=== PATIENT | female | born 1970 | race Caucasian/White ===

== ENCOUNTER → 2020-04-06 10:33 | Outpatient (BNVA) | payer OTHER, SELFPAY | PROVIDERS: PCP Nurse Practitioner Family; Visit Provider Surgery | DX: Z43.3 Encounter for attention to colostomy (principal) | CPT/HCPCS: 99212 ==

== ENCOUNTER 2020-04-06 11:54 | Outpatient (REF) | payer OTHER, SELFPAY | END 2020-04-06 11:55 | disposition home or self-care (01) | LOC: HO.LAB 11:54 | PROVIDERS: Visit Provider Internal Medicine | DX: Z20.828 Contact with and (suspected) exposure to other viral communicable diseases (principal) | CPT/HCPCS: C9803; U0003 ==

== ENCOUNTER 2020-05-04 10:36 | Outpatient (REF) | payer OTHER, SELFPAY | END 2020-05-04 10:37 | disposition home or self-care (01) | LOC: HO.LAB 10:36 | PROVIDERS: Visit Provider Internal Medicine | DX: Z20.828 Contact with and (suspected) exposure to other viral communicable diseases (principal) | CPT/HCPCS: C9803; U0003 ==

== ENCOUNTER → 2020-06-01 10:33 | Outpatient (BNVA) | payer OTHER, SELFPAY | PROVIDERS: PCP Nurse Practitioner Family; Referring Provider Nurse Practitioner Family; Visit Provider Surgery | DX: E66.01 Morbid (severe) obesity due to excess calories (principal); Z93.3 Colostomy status | CPT/HCPCS: 99212 ==

== ENCOUNTER 2021-02-16 11:22 | Emergency (ER) | payer OTHER, SELFPAY ==
[2021-02-16 11:40] VITALS: BP 149/78; PULSE 67; RESP 18; TEMP 36.7; O2SAT 100; BMI 38.0
[2021-02-16] MEDS: Lidocaine HCl 2 % MPF 5 ML VIAL SUBCUT (12:45)
--- NOTE | 2021-02-16 13:10 | ED.GENADULT ---
HPI - General Adult General Chief complaint: General Medical Stated complaint: Boil private area Time Seen by Provider: 02/16/21 12:29 Source: patient Mode of arrival: ambulatory Limitations: no limitations History of Present Illness HPI narrative: 50-year-old female here with swollen and red area to the left buttocks for 3 days. Patient tells me at home she was able to drain some of it in the shower no fevers or chills. Blood sugars have been running normal. Related Data Home Medications Medication Instructions Recorded Confirmed atorvastatin 10 mg tablet 10 mg PO DAILY 04/06/20 06/01/20 colostomy bags #5 ea 04/06/20 06/01/20 dulaglutide 0.75 mg/0.5 mL 0.75 mg SUBCUT QWEEK 04/06/20 06/01/20 subcutaneous pen injector (Trulicity) insulin glargine 100 unit/mL (3 10 unit SUBCUT BID 04/06/20 06/01/20 mL) subcutaneous pen (Lantus Solostar U-100 Insulin) insulin lispro 100 unit/mL 10 unit SUBCUT BID ml 04/06/20 06/01/20 subcutaneous half-unit pen (Humalog Davi KwikPen (U-100)) lisinopril 20 mg tablet 20 mg PO DAILY 04/06/20 06/01/20 sertraline 50 mg tablet 50 mg PO DAILY 04/06/20 06/01/20 trazodone 50 mg tablet 50 mg PO BEDTIME PRN 04/06/20 06/01/20 Previous Rx's Medication Instructions Recorded skin protectants, misc. (No Sting See Rx Instructions TOPICAL .with 01/25/21 Barrier Film) ostomy change 30 Days #30 ea doxycycline monohydrate 100 mg 100 mg PO BID #20 tab 02/16/21 tablet Allergies Allergy/AdvReac Type Severity Reaction Status Date / Time stoma pace Allergy Unknown severe Uncoded 12/11/18 00:00 rash/Itch Review of Systems Review of Systems: Yes all other systems are reviewed and are negative Constitutional: Constitutional: Reports no additional constitutional complaints, Denies body ache(s), Denies chills, Denies fever(s), Denies headache(s) and Denies weakness Eyes: Eyes: Reports no additional eye complaints and Denies change in vision ENT: Reports system reviewed and no additional complaints, except as documented, Denies dizziness, Denies headache(s), Denies nasal congestion, Denies nasal discharge and Denies neck pain Cardiovascular: Cardiovascular: Reports no additional cardiovascular complaints, Denies chest pain, Denies leg edema and Denies dyspnea Respiratory: Respiratory: Reports no additional respiratory complaints, Denies cough and Denies dyspnea Gastrointestinal: Gastrointestinal: Reports no additional gastrointestinal complaints, Denies abdominal pain, Denies diarrhea, Denies nausea and Denies vomiting Genitourinary: Genitourinary: Reports no additional female genitourinary complaints and Denies urinary incontinence Musculoskeletal: Musculoskeletal: Reports no additional musculoskeletal complaints, Denies back pain, Denies arthralgias, Denies joint swelling, Denies neck pain, Denies numbness and Denies tingling Integumentary/Breasts: Skin/Breast: Reports system reviewed and no additional complaints, except as docu, Reports furuncle, Reports swelling, Reports erythema and Denies rash Neurologic: Reports system reviewed and no additional complaints, except as documented, Denies Abnormal speech present, Denies dizziness, Denies headache(s), Denies numbness, Denies tingling and Denies weakness [facility] [place] Past Medical History Attestation statement: The following information was validated with the patient. Source: old records reviewed and nursing notes reviewed Medical History Boils of multiple sites Colostomy in place COVID-19 Depression Diabetes mellitus Diverticular disease Morbid obesity Social History Social History Alcohol intake: current Physical Exam Vital Signs: Vital Signs: Last Vital Signs Temp 98.0 F 02/16/21 11:40 Pulse 67 02/16/21 11:40 Resp 18 02/16/21 11:40 BP 149/78 H 02/16/21 11:40 Pulse Ox 100 02/16/21 11:40 Body Mass Index 38.0 Const: General: cooperative, healthy appearing, comfortable and no acute distress Orientation/consciousness: patient oriented x3 Limitations: no limitations HENMT: Head: Yes normal to inspection Ears: hearing grossly normal bilaterally General nose exam: Normal external nose present Face and sinus: Yes normal facial exam Mouth: Normal oral and palatal mucosa present Throat: Yes posterior oropharynx normal Eyes: General: appearance normal, both eyes and all related structures Pupils: Equal, round and reactive pupils present Neck: Neck: Yes normal visual inspection Chest: Chest palpation & inspection: normal inspection of the chest Resp: Effort & Inspection: normal respiratory effort Auscultation: clear to auscultation bilaterally Cardio: Rate: regular rate Rhythm: regular rhythm Peripheral pulses: Peripheral pulses 2+ throughout GI: Inspection: Yes normal to inspection Palpation (GI): Soft to palpation and nontender Auscultation: normal bowel sounds Back/Spine/Pelvis: Thoracic/Lumbar Spine: thoracic and lumbar spine normal to inspection Skin: Other: Medium boil to the left buttocks. There is an area that is open and draining a purulent drainage. Local swelling and redness and tenderness General skin exam: no rashes or lesions noted Neuro: General: patient oriented x3, no focal motor deficits and normal sensation to monofilament Cranial nerves: Yes Equal, round and reactive pupils present Cognition (Neuro): normal cognition Speech: No Abnormal speech present Gait exam (Neuro): Normal gait present Motor exam (neuro): 5/5 motor strength present throughout Extrem: General: Yes normal to inspection Course Course Course Narrative: Abscess to left buttocks. No systemic signs or symptoms concerning for infection. See procedure note. Will discharge home with 10 days of doxycycline. Recommended packing removal and 48 hours Reviewed worrisome signs and symptoms of when to return to the emergency department. Comfortable discharge home. Procedures Abscess I/D Site: other (Left buttocks) Local Anesthetic: lidocaine 2% Amount of anesthesia used (mL): 5 Technique: incised with blade Sent for culture/gram staining?: No Irrigation: No Packing used?: iodoform Medical Decision Making Medical Records Medical records reviewed: Yes I reviewed the patient's medical records. Lab Data Lab results reviewed: Yes I reviewed the patient's lab results. Discharge Plan Discharge Clinical Impression: Abscess Patient Disposition: Home, Self-Care Instructions: Abscess (ED) Additional Instructions: Packing removal in 48 hours Prescriptions: New doxycycline monohydrate 100 mg tablet 100 mg PO BID Qty: 20 RF: 0 No Action No Sting Barrier Film Pads, Medicated See Rx Instructions topical .with ostomy change 30 Days Qty: 30 RF: 12 Lantus Solostar U-100 Insulin 100 unit/mL (3 mL) insulin pen 10 unit subcut BID RF: 0 lisinopril 20 mg tablet 20 mg PO DAILY RF: 0 atorvastatin 10 mg tablet 10 mg PO DAILY RF: 0 insulin lispro [Humalog Davi Joana U-100] 100 unit/mL insulin pen, half-unit 10 unit subcut BID RF: 0 (DME) colostomy bags Misc See Rx Instructions .ROUTE .MEDSUPPLY Qty: 5 RF: 0 trazodone 50 mg tablet 50 mg PO BEDTIME PRNRF: 0 sertraline 50 mg tablet 50 mg PO DAILY RF: 0 Trulicity 0.75 mg/0.5 mL pen injector 0.75 mg subcut QWEEK RF: 0 Referrals: Physician,Unknown [Primary Care Provider] - 2 days Interventions: ED Discharge Assessment Last Done: 02/16/21 13:20 Discharge Date/Time: 02/16/21 13:10
== END 2021-02-16 13:10 | disposition home or self-care (01) ==
PROVIDERS: Emergency Provider Emergency Medicine Emergency Medical Services
DX: L02.31 Cutaneous abscess of buttock (principal); Z79.899 Other long term (current) drug therapy
CPT/HCPCS: 10060; 99283; 99284

== ENCOUNTER 2021-02-18 09:58 | Emergency (ER) | payer OTHER, SELFPAY ==
[2021-02-18 11:03] VITALS: BP 145/91; PULSE 64; RESP 18; TEMP 36.9; O2SAT 99; BMI 38.0
--- NOTE | 2021-02-18 11:11 | ED_ITS ---
HPI - Recheck/Abnormal Lab/Rx General Chief Complaint: Skin/Abscess/Foreign Body Stated Complaint: BOIL CHECK Time Seen by Provider: 02/18/21 11:05 Source: patient Mode of arrival: ambulatory Limitations: no limitations History of Present Illness MD complaint: wound re-check Initial visit (ago): day(s) (02/16 I/D with doxy) Initial visit for: abscess Returns today for: wound recheck Symptoms since prior visit: no new symptoms Context: planned re-check Associated symptoms: none Treatments prior to arrival: given antibiotics on (02/16 doxy) Related Data Home Medications Medication Instructions Recorded Confirmed atorvastatin 10 mg tablet 10 mg PO DAILY 04/06/20 06/01/20 colostomy bags #5 ea 04/06/20 06/01/20 dulaglutide 0.75 mg/0.5 mL 0.75 mg SUBCUT QWEEK 04/06/20 06/01/20 subcutaneous pen injector (Trulicity) insulin glargine 100 unit/mL (3 10 unit SUBCUT BID 04/06/20 06/01/20 mL) subcutaneous pen (Lantus Solostar U-100 Insulin) insulin lispro 100 unit/mL 10 unit SUBCUT BID ml 04/06/20 06/01/20 subcutaneous half-unit pen (Humalog Davi KwikPen (U-100)) lisinopril 20 mg tablet 20 mg PO DAILY 04/06/20 06/01/20 sertraline 50 mg tablet 50 mg PO DAILY 04/06/20 06/01/20 trazodone 50 mg tablet 50 mg PO BEDTIME PRN 04/06/20 06/01/20 Previous Rx's Medication Instructions Recorded skin protectants, misc. (No Sting See Rx Instructions TOPICAL .with 01/25/21 Barrier Film) ostomy change 30 Days #30 ea doxycycline monohydrate 100 mg 100 mg PO BID #20 tab 02/16/21 tablet Allergies Allergy/AdvReac Type Severity Reaction Status Date / Time stoma pace Allergy Unknown severe Uncoded 12/11/18 00:00 rash/Itch Review of Systems Review of Systems: Constitutional : No Fever, No Chills ENT/Mouth : No sore throat, No Rhinorrhea Eyes: No Eye Pain, No Swelling, No Redness Cardiovascular : No Chest Pain, No SOB Respiratory : No Cough, No Sputum Gastrointestinal : No Nausea, No Vomiting, No Diarrhea, No abdominal Pain Genitourinary : No Dysuria, No Hematuria Musculoskeletal : No joint pain, No Myalgias, No Joint Swelling Skin : pos Skin Lesions, no skin rash Neuro : No Weakness, No Numbness, No Headache Psych : No Anxiety, No Depression Heme/Lymph: No Bruising, No Bleeding,No Lymphadenopathy Endocrine : No Polyuria, No Polydipsia All other systems reviewed and are negative PMFSH Past Medical History Attestation statement: The following information was validated with the patient. Medical History Boils of multiple sites Colostomy in place COVID-19 Depression Diabetes mellitus Diverticular disease Morbid obesity Social History Social History Alcohol intake: current Advance Directives: No Advance Directives Information Provided: No Patient : No Physical Exam Vital Signs: Vital Signs: Last Vital Signs Temp 98.5 F 02/18/21 11:03 Pulse 64 02/18/21 11:03 Resp 18 02/18/21 11:03 BP 145/91 H 02/18/21 11:03 Pulse Ox 99 02/18/21 11:03 Body Mass Index 38.0 Appearance: Alert. Oriented X3. No acute distress. Eyes: Pupils equal, round and reactive to light. ENT: Pharynx normal. Neck: Normal inspection. Neck supple. CVS: Normal heart rate and rhythm. Pulses normal. Respiratory: No respiratory distress. Breath sounds normal. Abdomen: Soft and nontender. Back: L buttock healing abscess no drainage, no cellulitis no mass felt Skin: Skin warm and dry. Normal skin color. Normal skin turgor. Extremities: No lower extremity edema. No calf ttp Neuro: Oriented X 3. No motor deficit. No sensory deficit. MDM - Recheck/Abnormal Lab/Rx MDM Narrative Medical decision making narrative: 50 yo female well healing abscess, packing out at home - no systemic signs of infection at this time will complete antibiotics course - stable for DC Discharge Plan Discharge Clinical Impression: Encounter for wound re-check Patient Disposition: Home, Self-Care Instructions: Abscess (ED) Additional Instructions: keep covered clean and dry, showers are okay continue antibiotics Prescriptions: No Action No Sting Barrier Film Pads, Medicated See Rx Instructions topical .with ostomy change 30 Days Qty: 30 RF: 12 doxycycline monohydrate 100 mg tablet 100 mg PO BID Qty: 20 RF: 0 Lantus Solostar U-100 Insulin 100 unit/mL (3 mL) insulin pen 10 unit subcut BID RF: 0 lisinopril 20 mg tablet 20 mg PO DAILY RF: 0 atorvastatin 10 mg tablet 10 mg PO DAILY RF: 0 insulin lispro [Humalog Davi KwikPen U-100] 100 unit/mL insulin pen, half- unit 10 unit subcut BID RF: 0 (DME) colostomy bags Misc See Rx Instructions .ROUTE .MEDSUPPLY Qty: 5 RF: 0 trazodone 50 mg tablet 50 mg PO BEDTIME PRNRF: 0 sertraline 50 mg tablet 50 mg PO DAILY RF: 0 Trulicity 0.75 mg/0.5 mL pen injector 0.75 mg subcut QWEEK RF: 0
== END 2021-02-18 11:23 | disposition home or self-care (01) ==
PROVIDERS: Emergency Provider Emergency Medicine
DX: Z48.00 Encounter for change or removal of nonsurgical wound dressing (principal); Z79.899 Other long term (current) drug therapy
CPT/HCPCS: 99282; 99283

== ENCOUNTER 2021-05-22 12:35 | Emergency (ER) | payer OTHER, SELFPAY ==
[2021-05-22 14:24] VITALS: BP 156/94; PULSE 77; RESP 20; TEMP 36.4; O2SAT 100; BMI 42.7
--- NOTE | 2021-05-22 16:28 | ED.FEMALEGU ---
HPI - Female Genitourinary General Chief complaint: Urogenital-Female Stated complaint: tingling leg,cough,irritated vaginal area Time Seen by Provider: 05/22/21 16:27 Source: patient Mode of arrival: ambulatory Limitations: no limitations History of Present Illness HPI Narrative: 50 y/o female with history of morbid obesity, DM, hx diverticulitis s/p emergent sigmoid resection and end- colostomy in Jun 2016 who presents to the ER with vaginal pain for the last 4 days. She is worried she may have a herpes outbreak, last was several years ago. She reports severe external vaginal tenderness and noticed some white areas on the skin. Pain is worse with urination and sawyer the skin. She has been putting Neosporin on it. She states she lost her job and her insurance and has been unable to fill her prescriptions for her insulin. She does not monitor her sugars at home and does not know what her glucose has been running. In addition to her vaginal pain she reports a painful, irritated and red throat after smoking her son's marijuana and coughing a lot. She denies fever, chills, SOB or cheat pain. MD elicited complaint: dysuria, genital rash, genital swelling and genital itching Pertinent past history: STI/STD (hx HSV) and diabetes Onset (ago): day(s) (3) Location of symptoms: external genitalia Severity: severe Severity scale (1-10): 10 Quality of pain: burning Consistency: constant Vaginal discharge: thick/cheesy and vaginal odor Vaginal bleeding: none Urinary symptoms: Dysuria Exacerbating factors: urination, movement and palpation Relieving factors: other (warm clothes) Associated symptoms: denies other symptoms Treatment prior to arrival: none Sexual activity: No Patient : No Related Data Home Medications Medication Instructions Recorded Confirmed atorvastatin 10 mg tablet 10 mg PO DAILY 04/06/20 06/01/20 colostomy bags #5 ea 04/06/20 06/01/20 dulaglutide 0.75 mg/0.5 mL 0.75 mg SUBCUT QWEEK 04/06/20 06/01/20 subcutaneous pen injector (Trulicity) insulin glargine 100 unit/mL (3 10 unit SUBCUT BID 04/06/20 06/01/20 mL) subcutaneous pen (Lantus Solostar U-100 Insulin) insulin lispro 100 unit/mL 10 unit SUBCUT BID ml 04/06/20 06/01/20 subcutaneous half-unit pen (Humalog Junior Bernard (U-100)) lisinopril 20 mg tablet 20 mg PO DAILY 04/06/20 06/01/20 sertraline 50 mg tablet 50 mg PO DAILY 04/06/20 06/01/20 trazodone 50 mg tablet 50 mg PO BEDTIME PRN 04/06/20 06/01/20 Previous Rx's Medication Instructions Recorded skin protectants, misc. (No Sting See Rx Instructions TOPICAL .with 01/25/21 Barrier Film) ostomy change 30 Days #30 ea doxycycline monohydrate 100 mg 100 mg PO BID #20 tab 02/16/21 tablet fluconazole 150 mg tablet 150 mg PO DAILY #1 tab 05/22/21 (Diflucan) insulin glargine 100 unit/mL 40 unit (0.4 mL) SUBCUT BID #10 ml 05/22/21 subcutaneous solution (Lantus U-100 Insulin) miconazole nitrate 100 mg vaginal 100 mg VAGINAL BEDTIME 7 Days #7 ea 05/22/21 suppository (Miconazole-7) valacyclovir 500 mg tablet 500 mg PO BID 4 Days #8 tab 05/22/21 Allergies Allergy/AdvReac Type Severity Reaction Status Date / Time stoma pace Allergy Unknown severe Uncoded 12/11/18 00:00 rash/Itch Review of Systems Review of Systems: Constitutional: No Fever, No Chills ENT/Mouth: + sore throat, No Rhinorrhea, No Swallowing Difficulty Cardiovascular: No Chest Pain, No SOB Respiratory: No Cough, No Sputum Gastrointestinal: No Nausea, No Vomiting, No Diarrhea, No abdominal Pain, No Hematochezia, No Melena Genitourinary: + Dysuria, No Urinary Frequency, No Hematuria, +vaginal discharge Musculoskeletal: No joint pain, No Myalgias Skin: + Skin Lesions, No rash Psych: + Anxiety/Panic, No Depression Heme/Lymph: No Bruising, No Lymphadenopathy Endocrine: No Polyuria, No Polydipsia PMFSH Past Medical History Medical History Boils of multiple sites Colostomy in place COVID-19 Depression Diabetes mellitus Diverticular disease Morbid obesity Social History Social History Alcohol intake: current Advance Directives: No Advance Directives Information Provided: No Patient : No Physical Exam Vital Signs: Vital Signs: Last Vital Signs Temp 97.5 F 05/22/21 14:24 Pulse 77 05/22/21 14:24 Resp 20 05/22/21 14:24 BP 156/94 H 05/22/21 14:24 Pulse Ox 100 05/22/21 14:24 BMI result Body Mass Index 42.7 Appearance: Alert. Oriented X3. No acute distress. Eyes: Pupils equal, round and reactive to light. ENT: Pharynx with moderate generalized erythema, no tonsillar swelling or exudates, uvula midline, normal voice. Neck: Normal inspection. Neck supple. CVS: Normal heart rate and rhythm. Pulses normal. Respiratory: No respiratory distress. Breath sounds normal. Abdomen: Obese, Soft and nontender. +BS x4 : labia majora and minora with diffuse erythema, raw with white plaques, labia minora with small cluster of vesicles at 11 o clock. tender. perineal skin red and raw as well. oozing clear fluid. Skin: Skin warm and dry. Normal skin color. Normal skin turgor. No rashes. Extremities: No lower extremity edema. Neuro: Oriented X 3. grossly normal, nonfocal Course Course Course Narrative: 50 y/o female with hx DM not on insulin for 2 + months, hx genital herpes who presents to the ER with vaginal pain x4 days. Exam is consistent with severe candidiasis. Also small cluster of lesions c/w HSV. Will treat with oral diflucan now as well as valacyclovir. check POC, UA, Strep and COVID swab. No polyuria or polydipsia. Doubt DKA. Reevaluation(s) Reevaluation #1: Point of care 315. Will order her regimen of Lantus including 40 units as well as 10 units of lispro now. Her urinalysis is negative for acute UTI. Her COVID and strep test were negative. Patient was counseled on the importance of compliance with her insulin regimen to allow her candidiasis to fully resolve. Will send home with a repeat dose of Diflucan in 3 days as well as topical treatment for a week. Will also give course of valacyclovir for her HSV. Will prescribe insulin as well and she is going to call her PCP tomorrow to try to get in as soon as possible. Stable for discharge home. MDM - Female Genitourinary Lab Data Labs: Lab Results 05/22/21 05/22/21 05/22/21 Range/Units 17:08 17:08 17:09 POC Glucose (60-115) mg/dL Urine Color YELLOW Urine Appearance HAZY Urine pH 6.0 (5.0-8.0) Ur Specific [place] 1.025 (1.005-1.025) Urine Protein 1+ H (NEG-TRACE) MG/DL Urine Glucose (UA) >=1000 H (NEG) MG/DL Urine Ketones NEG (NEG) MG/DL Urine Blood 1+ H (NEG) Urine Nitrite NEG (NEG) Ur Leukocyte Esterase 1+ H (NEG) Urine RBC 5-9 H (0) /HPF Urine WBC 15-29 H (0-4) /HPF Ur Squamous Epith Cells 2+ /LPF Urine Bacteria 2+ /LPF COVID-19 (CARRILLO) Negative (Negative) COVID-19 Clin Com See Note S. pyogenes GrpA BERNA Negative (Negative) 05/22/21 Range/Units 17:28 POC Glucose 315 H (60-115) mg/dL Urine Color Urine Appearance Urine pH (5.0-8.0) Ur Specific [place] (1.005-1.025) Urine Protein (NEG-TRACE) MG/DL Urine Glucose (UA) (NEG) MG/DL Urine Ketones (NEG) MG/DL Urine Blood (NEG) Urine Nitrite (NEG) Ur Leukocyte Esterase (NEG) Urine RBC (0) /HPF Urine WBC (0-4) /HPF Ur Squamous Epith Cells /LPF Urine Bacteria /LPF COVID-19 (CARRILLO) (Negative) COVID-19 Clin Com S. pyogenes GrpA BERNA (Negative) Critical Care Time Critical Care Time Critical Care Time: No Discharge Plan Discharge Clinical Impression: Diabetes mellitus Qualifiers: Diabetes mellitus type: type 2 Diabetes mellitus terminal system operator insulin use: with terminal system operator use Diabetes mellitus complication status: with hyperglycemia Qualified Code(s): E11.65 - Type 2 diabetes mellitus with hyperglycemia Patient Disposition: Home, Self-Care Instructions: Genital Herpes Simplex (ED), Yeast Infection (ED), Diabetic Hyperglycemia (ED) Additional Instructions: Your given 1st dose of Diflucan to treat vaginal yeast infection - you will need to repeat this in 3 days. One additional dose was sent to your pharmacy. Given the extent of the infection also recommend 7 days of intravaginal anti fungal. This was also sent to your pharmacy. Use the 1st vaginal suppository tonight. Continue the valacyclovir for the next 4 days to treat your herpes outbreak. It is very important that you start taking her insulin, the infection will not be able to go way if your sugars are out of control. Follow-up with your doctor as soon as possible. You were negative for strep throat and COVID-19 today. Prescriptions: New fluconazole [Diflucan] 150 mg tablet 150 mg PO DAILY Qty: 1 RF: 0 valacyclovir 500 mg tablet 500 mg PO BID 4 Days Qty: 8 RF: 0 miconazole nitrate [Miconazole-7] 100 mg suppository 100 mg vaginal BEDTIME 7 Days Qty: 7 RF: 0 Lantus U-100 Insulin 100 unit/mL solution 40 unit subcut BID Qty: 10 RF: 2 No Action No Sting Barrier Film Pads, Medicated See Rx Instructions topical .with ostomy change 30 Days Qty: 30 RF: 12 doxycycline monohydrate 100 mg tablet 100 mg PO BID Qty: 20 RF: 0 Lantus Solostar U-100 Insulin 100 unit/mL (3 mL) insulin pen 10 unit subcut BID RF: 0 lisinopril 20 mg tablet 20 mg PO DAILY RF: 0 atorvastatin 10 mg tablet 10 mg PO DAILY RF: 0 insulin lispro [Humalog Davi KwikPen U-100] 100 unit/mL insulin pen, half-unit 10 unit subcut BID RF: 0 (DME) colostomy bags Misc See Rx Instructions .ROUTE .MEDSUPPLY Qty: 5 RF: 0 trazodone 50 mg tablet 50 mg PO BEDTIME PRNRF: 0 sertraline 50 mg tablet 50 mg PO DAILY RF: 0 Trulicity 0.75 mg/0.5 mL pen injector 0.75 mg subcut QWEEK RF: 0 Interventions: ED Discharge Assessment Last Done: 05/22/21 18:35 Discharge Date/Time: 05/22/21 18:35
--- NOTE | 2021-05-22 17:31 | PC.NURSE ---
accu check done results 315 provider notified .
[2021-05-22 17:32] LABS: Glucose, Whole Blood 315 mg/dL (60-115)
[2021-05-22 17:33] LABS: Appearance Urine HAZY; Color Urine YELLOW; Glucose Urine UA >=1000 MG/DL (NEG); Leukocyte Esterase Urine 1+ (NEG); Nitrite Urine NEG (NEG); Specific Gravity - Urine 1.025 (1.005-1.025); UACC Culture Trigger YES; Urine Blood 1+ (NEG); Urine Ketones NEG (NEG); Urine Protein 1+ MG/DL (NEG-TRACE)
[2021-05-22 17:41] LABS: IDNOW Serial# 9DD0AD1C; Strep A Nucleic Acid Negative (Negative)
[2021-05-22] MEDS: oxyCODONE HCl Immed Release 5 MG TABLET PO (17:47)
[2021-05-22] MEDS: Nystatin Powder 15 GM BOTTLE 1 APPL TOPICAL (17:48)
[2021-05-22] MEDS: Fluconazole 150 MG TABLET PO (17:48)
[2021-05-22] MEDS: Insulin Lispro 100 UNIT/ML 3 ML VIAL 10 UNIT SUBCUT (17:49)
[2021-05-22] MEDS: Insulin Glargine,Hum.rec.anlog 100 UNIT/ML 10 ML VIAL 40 UNIT SUBCUT (17:50)
[2021-05-22 17:51] LABS: COVID-19 Test Negative (Negative)
[2021-05-22 19:00] LABS: Bacteria Urine 2+ /LPF; Squamous Epithelial Cell Urine 2+ /LPF
== END 2021-05-22 18:35 | disposition home or self-care (01) ==
PROVIDERS: Physician Assistant; Emergency Provider Emergency Medicine
DX: B37.3 Candidiasis of vulva and vagina (principal); E11.65 Type 2 diabetes mellitus with hyperglycemia; R10.2 Pelvic and perineal pain; Z91.14 Patient's other noncompliance with medication regimen; Z20.822 Contact with and (suspected) exposure to COVID-19
CPT/HCPCS: 36415; 81001; 82947; 87086; 87147; 87635; 87651; 99283

== ENCOUNTER 2021-06-02 11:23 | Emergency (ER) | payer OTHER, SELFPAY ==
--- NOTE | 2021-06-02 | ECG_ITS ---
Test Reason : dyspnea Blood Pressure : / mmHG Vent. Rate : 086 BPM Atrial Rate : 086 BPM P-R Int : 142 ms QRS Dur : 074 ms QT Int : 332 ms P-R-T Axes : 025 010 027 degrees QTc Int : 397 ms Normal sinus rhythm Normal ECG When compared with ECG of 30-DEC-2018 13:38, Vent. rate has increased BY 28 BPM Referred By: Generic ED Physician Electronically Signed By:MARY SIERRA
[2021-06-02 11:29] VITALS: BP 151/85; PULSE 120; RESP 24; TEMP 37.7; O2SAT 98; BMI 36.1
--- NOTE | 2021-06-02 12:08 | ED.SKABFB ---
HPI - Skin/Abscess/Foreign Bdy General Chief complaint: Skin/Abscess/Foreign Body Stated complaint: boil r butt cheek Time Seen by Provider: 06/02/21 11:46 Source: patient Mode of arrival: ambulatory History of Present Illness HPI narrative: 50-year-old female with a PMH depression, diabetes, diverticular disease, morbid obesity, colostomy, presenting to the ED complaining of abscess to right buttock x1 week. Reports intermittent fever. Denies drainage from area, chills, rectal bleeding, abdominal pain, nausea/vomiting, pain with BM, vaginal pain/lesions, dysuria/hematuria, flank pain Of note patient was recently seen and treated in our ED on 05/22 for candidiasis, HSV outbreak, and also noted to have UTI which appears untreated growing strep agalactiae MD complaint: abscess/boil Onset (ago): day(s) Related Data Home Medications Medication Instructions Recorded Confirmed atorvastatin 10 mg tablet 10 mg PO DAILY 04/06/20 06/01/20 colostomy bags #5 ea 04/06/20 06/01/20 dulaglutide 0.75 mg/0.5 mL 0.75 mg SUBCUT QWEEK 04/06/20 06/01/20 subcutaneous pen injector (Trulicity) insulin glargine 100 unit/mL (3 10 unit SUBCUT BID 04/06/20 06/01/20 mL) subcutaneous pen (Lantus Solostar U-100 Insulin) insulin lispro 100 unit/mL 10 unit SUBCUT BID ml 04/06/20 06/01/20 subcutaneous half-unit pen (Humalog Davi KwikPen (U-100)) lisinopril 20 mg tablet 20 mg PO DAILY 04/06/20 06/01/20 sertraline 50 mg tablet 50 mg PO DAILY 04/06/20 06/01/20 trazodone 50 mg tablet 50 mg PO BEDTIME PRN 04/06/20 06/01/20 Previous Rx's Medication Instructions Recorded skin protectants, misc. (No Sting See Rx Instructions TOPICAL .with 01/25/21 Barrier Film) ostomy change 30 Days #30 ea doxycycline monohydrate 100 mg 100 mg PO BID #20 tab 02/16/21 tablet fluconazole 150 mg tablet 150 mg PO DAILY #1 tab 05/22/21 (Diflucan) insulin glargine 100 unit/mL 40 unit (0.4 mL) SUBCUT BID #10 ml 05/22/21 subcutaneous solution (Lantus U-100 Insulin) miconazole nitrate 100 mg vaginal 100 mg VAGINAL BEDTIME 7 Days #7 ea 05/22/21 suppository (Miconazole-7) valacyclovir 500 mg tablet 500 mg PO BID 4 Days #8 tab 05/22/21 cephalexin 500 mg capsule 500 mg PO QID 7 Days #28 cap 06/02/21 doxycycline hyclate 100 mg tablet 100 mg PO BID 7 Days #14 tab 06/02/21 Allergies Allergy/AdvReac Type Severity Reaction Status Date / Time stoma pace Allergy Unknown severe Uncoded 12/11/18 00:00 rash/Itch Review of Systems Review of Systems: Constitutional: + Fever, No Chills ENT/Mouth: No Ear Pain, No Nasal Congestion, No sore throat, No Rhinorrhea, No Swallowing Difficulty Cardiovascular: No Chest Pain, No SOB Respiratory: No Cough, No Sputum, No Wheezing Gastrointestinal: No Nausea, No Vomiting, No Diarrhea, No Constipation, No Abdominal pain Genitourinary: No Dysuria, No Urinary Frequency, No Hematuria, No Flank Pain Musculoskeletal: No joint pain, No Myalgias, No Joint Swelling Skin: + Skin Lesions, No rash Neuro: No Weakness, No Numbness, No Paresthesias Yes all other systems are reviewed and are negative [facility] Past Medical History Attestation statement: The following information was validated with the patient. Medical History Boils of multiple sites Colostomy in place COVID-19 Depression Diabetes mellitus Diverticular disease Morbid obesity Social History Social History Alcohol intake: current Advance Directives: Yes Advance Directives Information Provided: Yes Advance Directives on File: No Physical Exam Vital Signs: Vital Signs: Last Vital Signs Temp 98.8 F 06/02/21 13:44 Pulse 86 06/02/21 13:44 Resp 18 06/02/21 13:46 BP 125/70 06/02/21 13:44 Pulse Ox 98 06/02/21 13:44 BMI result Body Mass Index 36.1 Const: General: cooperative, comfortable, no acute distress and anxious Orientation/consciousness: patient oriented x3 Limitations: no limitations HENMT: Head: Yes normal to inspection and Yes atraumatic Ears: hearing grossly normal bilaterally General nose exam: Normal external nose present Face and sinus: Yes normal facial exam Eyes: General: appearance normal, both eyes and all related structures EOM: EOMs intact bilaterally Neck: Neck: Yes normal visual inspection and Yes no meningeal signs Resp: Effort & Inspection: normal respiratory effort and no respiratory distress Auscultation: clear to auscultation bilaterally Cardio: Rate: regular rate and tachycardic Heart sounds: S1 normal heart sound present and S2 normal heart sound present GI: Inspection: Yes normal to inspection Palpation (GI): Soft to palpation, nontender, no guarding and not rigid Skin: Other: + large indurated abscess noted to right buttock with central fluctuance. + surrounding erythema. No streaking. No active drainage. Rashes: no rashes Neuro: General: patient oriented x3 and no meningeal signs Gait exam (Neuro): Normal gait present Extrem: General: Yes normal to inspection Course Course Course Narrative: -1240--leukocytosis of 14.6. Lactic acid negative. Labs otherwise unremarkable. > due to patient's obesity her IBW =45kg > 45kg x 30cc IVF = 1,350cc IVF. Still low concern for severe sepsis, patient is nontoxic, tachycardia and tachypnea resolved after pain control -patient was given dose of IV Rocephin and p.o. doxycycline in the ED Large amount of purulent drainage expressed from abscess. Packing placed. Discussed with patient worrisome signs and symptoms and strict return precautions and need close follow-up/return in 48 hours for packing removal. She verbalized understanding feel safe for discharge home -1439--UA not infected. COVID-19 negative MDM - Skin/Abscess/Foreign Bdy MDM Narrative Medical decision making narrative: 50-year-old female with a H depression, diabetes, diverticular disease, morbid obesity, colostomy, presenting to the ED complaining of abscess to right buttock x1 week. Reports intermittent fever. On exam tachycardic, tachypneic, low-grade fever 99.8, abscess noted to right buttock with large induration and central fluctuance, + overlying cellulitis. Tachycardia/tachypnea from pain and anxiety and not severe sepsis. Plan: Labs, UA, lactic/blood cultures, empiric IV antibiotics, IVF, I&D abscess Medical Records Attestation: I reviewed the patient's medical records. Lab Data Attestation: I reviewed the patient's lab results. Result diagrams: 06/02/21 12:06 06/02/21 12:06 Labs: Lab Results 06/02/21 06/02/21 06/02/21 Range/Units 12:05 12:06 12:06 WBC 14.6 H (4.8-10.8) X10*3/uL RBC 5.06 (4.20-5.50) X10*6/uL Hgb 14.6 (12.0-16.0) g/dl Hct 43.6 (37.0-47.0) % MCV 86.2 (80.0-98.0) fL MCH 28.9 (27.0-33.0) pg MCHC 33.5 (31.0-35.0) g/dl RDW 12.4 (11.0-16.0) % Plt Count 323 (160-400) X10*3/uL MPV 10.5 (9.4-12.3) fL Immature Gran % (Auto) 1.1 H (0.0-0.4) % Neut % (Auto) 81.3 H (45-73) % Lymph % (Auto) 9.8 L (20-40) % [place] % (Auto) 6.6 (2-11) % Eos % (Auto) 0.9 (0-4) % Baso % (Auto) 0.3 (0-2) % Lymph # (Auto) 1.4 (1.2-4.9) X10*3/uL [place] # (Auto) 1.0 (0.1-1.2) X10*3/uL Eos # (Auto) 0.1 (0.0-0.4) X10*3/uL Baso # (Auto) 0.0 (0.0-0.2) X10*3/uL Abs Immat Gran (auto) 0.16 H (0.00-0.03) X10*3/uL Absolute Neuts (auto) 11.8 H (2.0-8.3) x10*3/uL Absolute Nucleated RBC 0.000 (0.0-0.012) X10*3/uL Nucleated RBC % (auto) 0.0 (0.0-0.2) /100WBC Sodium 138 (135-145) mmol/L Potassium 4.6 (3.3-5.1) mmol/L Chloride 101 (96-108) mmol/L Carbon Dioxide 25 (22-29) mmol/L Anion Gap 17 (12-20) BUN 7 L (9-16) mg/dL Creatinine 0.95 (0.5-1.4) mg/dL Estim Creat Clear Calc 68.8 Estimated GFR > 60 POC Glucose (60-115) mg/dL Random Glucose 149 H (60-115) mg/dL Lactic Acid 1.2 (0.5-2.0) mmol/L Calcium 10.3 H (8.4-10.2) mg/dL Magnesium 1.8 (1.6-2.6) mg/dL Total Bilirubin 0.9 (0.0-1.0) mg/dL Direct Bilirubin 0.3 (0.0-0.5) mg/dL AST 15 (5-31) U/L ALT 14 (0-31) U/L Alkaline Phosphatase 99 (39-117) U/L Total Protein 7.3 (6.5-8.0) g/dL Albumin 3.6 (3.5-5.0) g/dL Urine Color Urine Appearance Urine pH (5.0-8.0) Ur Specific [place] (1.005-1.025) Urine Protein (NEG-TRACE) MG/DL Urine Glucose (UA) (NEG) MG/DL Urine Ketones (NEG) MG/DL Urine Blood (NEG) Urine Nitrite (NEG) Ur Leukocyte Esterase (NEG) Urine RBC (0) /HPF Urine WBC (0-4) /HPF Ur Squamous Epith Cells /LPF Urine Bacteria /LPF Urine Mucus /LPF COVID-19 ([facility]) (Negative) COVID-19 Clin Com 06/02/21 06/02/21 06/02/21 Range/Units 12:07 12:39 13:04 WBC (4.8-10.8) X10*3/uL RBC (4.20-5.50) X10*6/uL Hgb (12.0-16.0) g/dl Hct (37.0-47.0) % MCV (80.0-98.0) fL MCH (27.0-33.0) pg MCHC (31.0-35.0) g/dl RDW (11.0-16.0) % Plt Count (160-400) X10*3/uL MPV (9.4-12.3) fL Immature Gran % (Auto) (0.0-0.4) % Neut % (Auto) (45-73) % Lymph % (Auto) (20-40) % [place] % (Auto) (2-11) % Eos % (Auto) (0-4) % Baso % (Auto) (0-2) % Lymph # (Auto) (1.2-4.9) X10*3/uL [place] # (Auto) (0.1-1.2) X10*3/uL Eos # (Auto) (0.0-0.4) X10*3/uL Baso # (Auto) (0.0-0.2) X10*3/uL Abs Immat Gran (auto) (0.00-0.03) X10*3/uL Absolute Neuts (auto) (2.0-8.3) x10*3/uL Absolute Nucleated RBC (0.0-0.012) X10*3/uL Nucleated RBC % (auto) (0.0-0.2) /100WBC Sodium (135-145) mmol/L Potassium (3.3-5.1) mmol/L Chloride (96-108) mmol/L Carbon Dioxide (22-29) mmol/L Anion Gap (12-20) BUN (9-16) mg/dL Creatinine (0.5-1.4) mg/dL Estim Creat Clear Calc Estimated GFR POC Glucose 146 H (60-115) mg/dL Random Glucose (60-115) mg/dL Lactic Acid (0.5-2.0) mmol/L Calcium (8.4-10.2) mg/dL Magnesium (1.6-2.6) mg/dL Total Bilirubin (0.0-1.0) mg/dL Direct Bilirubin (0.0-0.5) mg/dL AST (5-31) U/L ALT (0-31) U/L Alkaline Phosphatase (39-117) U/L Total Protein (6.5-8.0) g/dL Albumin (3.5-5.0) g/dL Urine Color YELLOW Urine Appearance CLOUDY Urine pH 5.5 (5.0-8.0) Ur Specific [place] >= 1.030 H (1.005-1.025) Urine Protein 2+ H (NEG-TRACE) MG/DL Urine Glucose (UA) NEG (NEG) MG/DL Urine Ketones 5 (NEG) MG/DL Urine Blood 1+ H (NEG) Urine Nitrite NEG (NEG) Ur Leukocyte Esterase NEG (NEG) Urine RBC 1-4 (0) /HPF Urine WBC 0-2 (0-4) /HPF Ur Squamous Epith Cells 2+ /LPF Urine Bacteria 2+ /LPF Urine Mucus 1+ /LPF COVID-19 ([facility]) Negative (Negative) COVID-19 Clin Com See Note Procedures Abscess I/D Site: other (Right buttock) Side (if applicable): right Local Anesthetic: lidocaine 1%, lidocaine 2% and with epi Amount of anesthesia used (mL): 10 Technique: incised with blade Amount of fluid expressed (mL): 30 Sent for culture/gram staining?: No Irrigation: No Packing used?: iodoform Discharge Plan Discharge Clinical Impression: Abscess Cellulitis Qualifiers: Site of cellulitis: buttock Qualified Code(s): L03.317 - Cellulitis of buttock Patient Disposition: Home, Self-Care Instructions: Cellulitis (ED), Abscess (ED), Abscess Follow-up (ED) Additional Instructions: You have an abscess that was drained today in the emergency department. Packing was placed. Return to the emergency department in 48 hours for packing removal 2 antibiotics were sent to the pharmacy for you, doxycycline and Keflex please take as prescribed, do not miss any doses, take until completion If abscess is worsening/becomes larger, continues to have drainage, or you develop fevers please return to the emergency department sooner Prescriptions: New cephalexin 500 mg capsule 500 mg PO QID 7 Days Qty: 28 RF: 0 doxycycline hyclate 100 mg tablet 100 mg PO BID 7 Days Qty: 14 RF: 0 No Action No Sting Barrier Film Pads, Medicated See Rx Instructions topical .with ostomy change 30 Days Qty: 30 RF: 12 doxycycline monohydrate 100 mg tablet 100 mg PO BID Qty: 20 RF: 0 fluconazole [Diflucan] 150 mg tablet 150 mg PO DAILY Qty: 1 RF: 0 valacyclovir 500 mg tablet 500 mg PO BID 4 Days Qty: 8 RF: 0 miconazole nitrate [Miconazole-7] 100 mg suppository 100 mg vaginal BEDTIME 7 Days Qty: 7 RF: 0 Lantus U-100 Insulin 100 unit/mL solution 40 unit subcut BID Qty: 10 RF: 2 Lantus Solostar U-100 Insulin 100 unit/mL (3 mL) insulin pen 10 unit subcut BID RF: 0 lisinopril 20 mg tablet 20 mg PO DAILY RF: 0 atorvastatin 10 mg tablet 10 mg PO DAILY RF: 0 insulin lispro [Humalog Davi KwikPen U-100] 100 unit/mL insulin pen, half-unit 10 unit subcut BID RF: 0 (DME) colostomy bags Misc See Rx Instructions .ROUTE .MEDSUPPLY Qty: 5 RF: 0 trazodone 50 mg tablet 50 mg PO BEDTIME PRNRF: 0 sertraline 50 mg tablet 50 mg PO DAILY RF: 0 Trulicity 0.75 mg/0.5 mL pen injector 0.75 mg subcut QWEEK RF: 0 Referrals: Liliana Montiel MD [Emergency Provider] - 2 days (For packing removal)
[2021-06-02 12:12] LABS: MANUAL DIFF FLAG NO
[2021-06-02 12:16] LABS: Basophils Percent Auto 0.3 % (0-2); Eosinophils Absolute Auto 0.1 X10*3/uL (0.0-0.4); Eosinophils Percent Auto 0.9 % (0-4); Hematocrit 43.6 % (37.0-47.0); Hemoglobin 14.6 g/dl (12.0-16.0); Imm Gran Abs Auto 0.16 X10*3/uL (0.00-0.03); Imm Gran Pct Auto 1.1 % (0.0-0.4); Lymphocytes Absolute Auto 1.4 X10*3/uL (1.2-4.9); Lymphocytes Percent Auto 9.8 % (20-40); Mean Corpuscular HGB Conc 33.5 g/dl (31.0-35.0); Mean Corpuscular Hemoglobin 28.9 pg (27.0-33.0); Mean Corpuscular Volume 86.2 fL (80.0-98.0); Mean Platelet Volume 10.5 fL (9.4-12.3); Monocytes Percent Auto 6.6 % (2-11); Neutrophils Absolute Auto 11.8 x10*3/uL (2.0-8.3); Neutrophils Percent Auto 81.3 % (45-73); Platelet Count 323 X10*3/uL (160-400); Red Blood Count 5.06 X10*6/uL (4.20-5.50); Red Cell Distribution Width 12.4 % (11.0-16.0); White Blood Count 14.6 X10*3/uL (4.8-10.8)
[2021-06-02] MEDS: 0.9 % Sodium Chloride 1,000 ML 999 ML IV (12:19)
[2021-06-02] MEDS: Ketorolac Tromethamine 30 MG/ML VIAL IVPUSH (12:19)
[2021-06-02 12:23] LABS: Lactic Acid 1.2 mmol/L (0.5-2.0)
[2021-06-02] MEDS: cefTRIAXone sodium 1 GM in 0.9 % Sodium Chloride 50 ML IV (12:25)
[2021-06-02] MEDS: Lidocaine HCl 2%/Epi 1:100,000 20 ML VIAL INFILTRATI (12:25)
[2021-06-02 12:30] LABS: IDNOW Serial# 08D9AD1C
[2021-06-02 12:31] LABS: COVID-19 Test Negative (Negative)
[2021-06-02 12:38] LABS: Alanine Aminotransferase 14 U/L (0-31); Albumin Level 3.6 g/dL (3.5-5.0); Alkaline Phosphatase 99 U/L (39-117); Anion Gap 17 (12-20); Aspartate Amino Transferase 15 U/L (5-31); Bilirubin Direct 0.3 mg/dL (0.0-0.5); Bilirubin Total 0.9 mg/dL (0.0-1.0); Blood Urea Nitrogen 7 mg/dL (9-16); Calcium 10.3 mg/dL (8.4-10.2); Carbon Dioxide 25 mmol/L (22-29); Chloride 101 mmol/L (96-108); Creatinine Clr Calc Pharmacy 68.8; Estimated Glomerular Filt Rate > 60; Glucose Random 149 mg/dL (60-115); Magnesium 1.8 mg/dL (1.6-2.6); Potassium 4.6 mmol/L (3.3-5.1); Sodium 138 mmol/L (135-145); Total Protein 7.3 g/dL (6.5-8.0)
[2021-06-02 12:44] LABS: Glucose, Whole Blood 146 mg/dL (60-115)
[2021-06-02 12:47] VITALS: BP 123/71; PULSE 82; RESP 18; TEMP 37.2; O2SAT 98
[2021-06-02] MEDS: Morphine Sulfate 2 MG/ML CARTRIDGE IVPUSH (13:15)
[2021-06-02 13:29] LABS: Appearance Urine CLOUDY; Color Urine YELLOW; Glucose Urine UA NEG (NEG); Leukocyte Esterase Urine NEG (NEG); Nitrite Urine NEG (NEG); PH 5.5 (5.0-8.0); Specific Gravity - Urine >= 1.030 (1.005-1.025); UACC Culture Trigger NO; Urine Blood 1+ (NEG); Urine Ketones 5 MG/DL (NEG); Urine Protein 2+ MG/DL (NEG-TRACE)
[2021-06-02 13:44] VITALS: BP 125/70; PULSE 86; RESP 18; TEMP 37.1; O2SAT 98
[2021-06-02 13:46] VITALS: RESP 18
[2021-06-02 14:04] LABS: WBC Urine 0-2 /HPF (0-4)
[2021-06-02 14:05] LABS: Bacteria Urine 2+ /LPF; Mucus Urine 1+ /LPF; Squamous Epithelial Cell Urine 2+ /LPF
== END 2021-06-02 15:08 | disposition home or self-care (01) ==
PROVIDERS: Physician Assistant; Emergency Provider Emergency Medicine
DX: L02.31 Cutaneous abscess of buttock (principal); Z20.822 Contact with and (suspected) exposure to COVID-19; Z79.899 Other long term (current) drug therapy
CPT/HCPCS: 10060; 36415; 80053; 81001; 82248; 82947; 83605; 83735; 85025; 87040; 87147; 87205; 87635; 93005; 96361; 96374; 96375; 99284; J0696; J1885; J2270

== ENCOUNTER 2022-05-31 09:30 | Outpatient (REF) | payer OTHER, SELFPAY ==
[2022-05-31 12:05] LABS: Blood Urea Nitrogen 24 mg/dL (9-16); Estimated Glomerular Filt Rate 59
== END 2022-05-31 09:31 | disposition home or self-care (01) ==
LOC: HO.LAB 09:30
PROVIDERS: PCP Nurse Practitioner Family; Visit Provider Surgery
DX: R10.9 Unspecified abdominal pain (principal); Z93.3 Colostomy status
CPT/HCPCS: 36415; 82565; 84520; 99212

== ENCOUNTER 2022-06-27 13:28 | Outpatient (REF) | payer OTHER, SELFPAY ==
--- NOTE | ~2022-06-27 | CT_ITS ---
EXAMINATION: CT ABDOMEN AND PELVIS WITH CONTRAST CLINICAL INFORMATION: Abdominal pain COMPARISON: Previous CT of the abdomen and pelvis most recent May 2017 TECHNIQUE: Multidetector volumetric images were obtained from the superior aspect of the liver through the pubic symphysis following administration 85 mL of Omnipaque 350 intravenous contrast. Sagittal and coronal reformatted images were obtained on the technologist's workstation. Oral contrast: Yes This CT examination was performed using dose optimization techniques as appropriate, variously including the following: *Automated exposure control *Adjustment of mA and/or kV according to patient size (this includes techniques or standardized protocols for targeted exams where dose is matched to indication/reason for exam; i.e. extremities or head) *Use of iterative reconstruction technique DLP: 591 mGy-cm FINDINGS: LUNG BASES: 3 mm peripheral or subpleural lingular nodule stable from previous exam. Lung bases are otherwise clear. LIVER, GALLBLADDER, AND BILIARY TREE: Mild fatty infiltration of the liver. Gallstones. No biliary duct dilatation. PANCREAS: Unremarkable. SPLEEN: Unremarkable. ADRENAL GLANDS: Unremarkable. KIDNEYS AND URETERS: Lobulated contour of the kidneys. 2 small left upper pole renal stones, largest measuring 3 mm. BLADDER: Not optimally distended GASTROINTESTINAL TRACT: Postsurgical changes with left-sided distal transverse colon colostomy. Evidence of resection of the left colon. Remaining sigmoid colon and rectum are unremarkable. Diverticulosis of the transverse colon. No evidence of diverticulitis. Normal appendix. Apparent proximal gastric wall thickening. This may be artifactual due to underdistention. ABDOMINAL WALL: Small parastomal hernia containing fat. Small umbilical hernia containing fat. LYMPH NODES: Normal. VASCULAR: Unremarkable. PELVIC VISCERA: Unremarkable. OSSEOUS STRUCTURES: Degenerative changes of the spine. CT/CT abdomen pelvis w IV con IMPRESSION: Postsurgical change from left colectomy. Left-sided distal transverse colon colostomy and small parastomal hernia. Mild diverticulosis of the left colon. Remaining sigmoid colon and rectum are unremarkable. Small left renal stones. Gallstones. Fleischner guidelines were followed.
== END 2022-06-27 13:29 | disposition home or self-care (01) ==
LOC: HO.CT 13:28
PROVIDERS: PCP Nurse Practitioner Family; Visit Provider Surgery
DX: R10.9 Unspecified abdominal pain (principal); Z93.3 Colostomy status
CPT/HCPCS: 74177

== ENCOUNTER → 2022-07-25 10:30 | Outpatient (BNVA) | payer OTHER, SELFPAY | PROVIDERS: PCP Nurse Practitioner Family; Visit Provider Surgery | DX: Z43.3 Encounter for attention to colostomy (principal) | CPT/HCPCS: 99212 ==

== ENCOUNTER 2022-08-15 | Outpatient (REF) | payer OTHER, SELFPAY ==
--- NOTE | 2022-08-15 | ECG_ITS ---
Test Reason : PREOP Blood Pressure : / mmHG Vent. Rate : 062 BPM Atrial Rate : 062 BPM P-R Int : 140 ms QRS Dur : 084 ms QT Int : 386 ms P-R-T Axes : 012 012 031 degrees QTc Int : 391 ms Normal sinus rhythm Normal ECG When compared with ECG of 02-JUN-2021 12:32, No significant change was found Referred By: Jaida Zazueta Electronically Signed By:MARY SIERRA
[2022-08-15 11:46] VITALS: BMI 36.3
[2022-08-15 11:56] VITALS: BP 156/72; PULSE 76; RESP 20; O2SAT 98
--- NOTE | 2022-08-15 12:02 | P.CONAN_ITS ---
HPI - Anesthesia Eval Consult details Narrative: Cancelled by surgeon d/t elevated A1C at >10 51yo F for Colostomy Reversal Laparoscopic possible open possible ileostomy +ETOH abuse (binge drinking weekly) +Cocaine use PMFSH Active Problems Active Problems: All Active Problems (Updated 08/14/22 @ 09:51 by Amber Holly, RN) Left sided abdominal pain (Acute) Colostomy in place (Acute) Diverticular disease (Acute) Diabetes mellitus (Acute) Depression (Acute) Morbid obesity (Acute) Past Medical History Medical History (Updated 08/14/22 @ 09:51 by Amber Holly, RN) Anxiety and depression Boils of multiple sites Colostomy in place COVID-19 Depression Diabetes mellitus Diverticular disease Elevated cholesterol GERD (gastroesophageal reflux disease) History of herpes genitalis HTN (hypertension) Left sided abdominal pain Morbid obesity Family History Family History Mother Stroke Cardiac arrest Father Cardiac arrest Diabetes Brother Diabetes Family history of problems with anesthesia: No Surgical History Surgical History (Updated 08/14/22 @ 09:54 by Amber Holly RN) History of colon resection Hx of section Hx of colonoscopy History of Problems with Anesthesia: No Social History Social History Household Members Other:: Sister Are you a primary home visit field care manager to a significant other at home: No Do you presently have visiting nurse or other home services: No Alcohol intake: current Alcohol intake frequency: a few times a month Patient Tobacco Use Status: Current someday Tobacco user Tobacco use type: Cigarette Cigarettes Per Day: 0 Years Smoked: 25 Smoked in Last 30 Days: Yes Patient Interested in Nicotine Replacement: Yes Patient Given Instructions on How to Stop Smoking: Yes Date Education Initiated: 08/15/22 Second Hand Smoke Exposure: Yes (boyfriend) Substance Use Type Other:: last crack cocaine 10 months ago Have you been hit, kicked, punched, or otherwise hurt by someone within the past year? If so, by whom?: No Are you DNR?: No Advance Directives: Yes Advance Directives Information Provided: Yes Advance Directives on File: No Advance Directives Date on File: 07/23/16 Recently lost weight without trying: No Eating poorly because of decreased appetite: No Nutrition Risks: No Nutritional Risk FDLMP: menopause : No Meds Allergies Allergy/AdvReac Type Severity Reaction Status Date / Time stoma pace Allergy Unknown severe Uncoded 08/15/22 11:42 rash/Itch Home Medications Medication Instructions Recorded Confirmed Last Taken Type atorvastatin 10 mg tablet 10 mg PO DAILY 04/06/20 08/14/22 Unknown History colostomy bags #5 ea 04/06/20 05/31/22 Unknown History dulaglutide 0.75 mg/0.5 mL 0.75 mg subcut QWEEK 04/06/20 08/14/22 Unknown History subcutaneous pen injector (Trulicity) lisinopril 20 mg tablet 20 mg PO DAILY 04/06/20 08/14/22 Unknown History sertraline 50 mg tablet 50 mg PO DAILY 04/06/20 08/14/22 Unknown History trazodone 50 mg tablet 50 mg PO BEDTIME PRN Sleep 04/06/20 08/14/22 Unknown History buspirone 5 mg tablet 5 mg PO BID 08/15/22 08/15/22 Unknown History clonidine HCl 0.1 mg tablet 0.1 mg PO BID 08/15/22 08/15/22 Unknown History Exam Exam Date and Time: August 15, 2022 1202 Height,Weight and Vital Signs: Height 5 ft Weight 84.368 kg Last Vital Signs Pulse 76 08/15/22 11:56 Resp 20 08/15/22 11:56 BP 156/72 H 08/15/22 11:56 Pulse Ox 98 08/15/22 11:56 O2 Del Method Room Air 08/15/22 11:56 Airway Mallampati Class: II TM Dist: >3cm Neck ROM: Full Loose/Missing/Broken Teeth: Yes (No upper teeth. Lower teeth poor dentition. Chipped, not loose) Heart: RRR Lungs: CTAB Assessment and Plan Assessment Anesthesia Assessment: Anesthesia Plan Discussed, Smoking Cess. Discussed and PAT Visit Final Anesthetic Review Family History of Problems with Anesthesia: No History of Problems with Anesthesia: No
[2022-08-15 12:46] LABS: Hematocrit 41.9 % (37.0-47.0); Hemoglobin 14.2 g/dl (12.0-16.0); Mean Corpuscular HGB Conc 33.9 g/dl (31.0-35.0); Mean Corpuscular Hemoglobin 29.8 pg (27.0-33.0); Mean Corpuscular Volume 87.8 fL (80.0-98.0); Mean Platelet Volume 10.1 fL (9.4-12.3); Platelet Count 261 X10*3/uL (160-400); Red Blood Count 4.77 X10*6/uL (4.20-5.50); Red Cell Distribution Width 13.1 % (11.0-16.0); White Blood Count 7.1 X10*3/uL (4.8-10.8)
[2022-08-15 12:59] LABS: Estimated Average Glucose 255 mg/dL; Hemoglobin A1c % 10.5 %
[2022-08-15 13:04] LABS: Anion Gap 13 (12-20); Blood Urea Nitrogen 15 mg/dL (9-16); Calcium 9.9 mg/dL (8.4-10.2); Carbon Dioxide 27 mmol/L (22-29); Chloride 105 mmol/L (96-108); Creatinine Clr Calc Pharmacy 67.5; Estimated Glomerular Filt Rate > 60; Glucose Random 238 mg/dL (60-115); Potassium 4.5 mmol/L (3.3-5.1); Sodium 140 mmol/L (135-145)
== END 2022-08-15 00:01 | disposition home or self-care (01) ==
LOC: HO.PAT
PROVIDERS: Nurse Practitioner; PCP Nurse Practitioner Family; Visit Provider Surgery
DX: Z01.818 Encounter for other preprocedural examination (principal); Z93.3 Colostomy status
CPT/HCPCS: 36415; 80048; 83036; 85027; 93005

== ENCOUNTER 2022-11-18 15:27 | Emergency (ER) | payer OTHER, SELFPAY ==
[2022-11-18 16:06] VITALS: BP 141/91; PULSE 87; RESP 18; TEMP 36; O2SAT 100; BMI 37.1
--- NOTE | 2022-11-18 16:07 | ED.GENADULT ---
HPI - General Adult General Chief complaint: Allergic Reaction Stated complaint: itchy rash all over body Time Seen by Provider: 11/18/22 16:18 Source: patient Mode of arrival: ambulatory Limitations: no limitations History of Present Illness HPI narrative: Patient is a 52-year-old female with history of DM, colostomy presenting to the emergency department with complaint of erythematous, pruritic rash to face, chest, bilateral arms, and upper back for 2 weeks. Reports recently starting gabapentin, unsure if symptoms are related. Also reports diarrhea to ostomy for the past 3-4 days, denies abdominal pain, nausea, vomiting. Denies fevers. Has not tried any OTC antihistamine medications for her symptoms. Denies any swelling to tongue, lips, throat. Denies any shortness of breath or difficulty breathing. MD complaint: rash, diarrhea Onset (ago): week(s) Location: face, chest and upper extremity Severity: severe Quality: burning Pain Consistency: constant Relieving factors: none Exacerbating factors: none Associated symptoms: other (3-4 days of diarrhea in ostomy) Treatments prior to arrival: none Related Data Home Medications Medication Instructions Recorded Confirmed atorvastatin 10 mg tablet 10 mg PO DAILY 04/06/20 08/14/22 colostomy bags #5 ea 04/06/20 05/31/22 dulaglutide 0.75 mg/0.5 mL 0.75 mg subcut QWEEK 04/06/20 08/14/22 subcutaneous pen injector (Trulicity) lisinopril 20 mg tablet 20 mg PO DAILY 04/06/20 08/14/22 sertraline 50 mg tablet 50 mg PO DAILY 04/06/20 08/14/22 trazodone 50 mg tablet 50 mg PO BEDTIME PRN Sleep 04/06/20 08/14/22 buspirone 5 mg tablet 5 mg PO BID 08/15/22 08/15/22 clonidine HCl 0.1 mg tablet 0.1 mg PO BID 08/15/22 08/15/22 Previous Rx's Medication Instructions Recorded skin protectants, misc. (No Sting See Rx Instructions topical .with 01/25/21 Barrier Film Pads) ostomy change 30 days #30 ea insulin glargine 100 unit/mL 40 unit (0.4 mL) subcut BID #10 mL 05/22/21 subcutaneous solution (Lantus U-100 Insulin) erythromycin 500 mg tablet,delayed 1,000 mg PO TID #6 tabs 07/25/22 release neomycin 500 mg tablet 1 g PO TID 3 doses #6 tabs 07/25/22 sodium,potassium,mag sulfates 17.5 See Rx Instructions PO .COMPLEX 07/25/22 gram-3.13 gram-1.6 gram oral soln #354 mL (Suprep Bowel Prep Kit) prednisone 20 mg tablet 40 mg PO DAILY #10 tabs 11/18/22 Allergies Allergy/AdvReac Type Severity Reaction Status Date / Time stoma pace Allergy Unknown severe Uncoded 08/15/22 11:42 rash/Itch Review of Systems Review of Systems: As per HPI. Yes all other systems are reviewed and are negative Constitutional: Constitutional: Reports as per HPI [facility] Past Medical History Medical History (Updated 11/19/22 @ 00:03 by Manjeet Sal) Anxiety and depression Boils of multiple sites Colostomy in place COVID-19 Depression Diabetes mellitus Diverticular disease Elevated cholesterol GERD (gastroesophageal reflux disease) History of herpes genitalis HTN (hypertension) Left sided abdominal pain Morbid obesity Surgical History (Updated 08/14/22 @ 09:54 by Amber Holly, [place]) History of colon resection Hx of section Hx of colonoscopy Family History Family History Mother Stroke Cardiac arrest Father Cardiac arrest Diabetes Brother Diabetes Social History Social History Household Members Other:: Sister Are you a primary medicare specialist to a significant other at home: No Do you presently have visiting nurse or other home services: No Alcohol intake: current Alcohol intake frequency: a few times a month Patient Tobacco Use Status: Current someday Tobacco user Tobacco use type: Cigarette Cigarettes Per Day: 0 Years Smoked: 25 Second Hand Smoke Exposure: Yes (boyfriend) Advance Directives: Yes Advance Directives on File: Yes Advance Directives Date on File: 07/23/16 Physical Exam ED Vital Signs: Vital Signs - 24 hr 11/18/22 16:06 11/18/22 18:36 Temperature 96.8 F 97 F Pulse Rate 87 Respiratory Rate 18 Blood Pressure 141/91 H 128/70 Pulse Oximetry 100 99 Oxygen Delivery Method Room Air Room Air BMI result Body Mass Index 37.1 Vital signs have been reviewed and appear to be correct. Blood pressure slightly elevated. Heart rate normal. Respiratory rate normal. Temperature normal. Oxygen saturation normal. Const General: cooperative, healthy appearing and no acute distress Orientation/consciousness: oriented to person, oriented to place, oriented to time and patient oriented x3 Limitations: no limitations HENDC Head: Yes normocephalic and Yes atraumatic Ears: external ears normal General nose exam: Normal external nose present Face and sinus: Yes face symmetric Mouth: oropharynx normal and moist mucous membranes Throat: Yes uvula midline Eyes Pupils: Equal, round and reactive pupils present Neck Neck: Yes normal visual inspection and Yes supple Resp Effort & Inspection: normal respiratory effort and able to speak in complete sentences Auscultation: clear to auscultation bilaterally Cardio Rate: regular rate Rhythm: regular rhythm Heart sounds: S1 normal heart sound present and S2 normal heart sound present GI Inspection: Yes other (colostomy draining billings,liquid stool) Palpation (GI): Soft to palpation and nontender Auscultation: normoactive bowel sounds General: Yes no CVA tenderness Back/Spine/Pelvis Back: no CVA tenderness Skin General skin exam: elasticity normal and turgor normal Rashes: rashes noted (erythematous maculopapular rash to bilateral arms, chest, erythema to face) multiple locations arrangement, color red, distribution (diffuse), morphology, surface erythematous and other (no bullae, negative Nikolsy, no petechiae); fluctuant not assessed and nontender Neuro General: oriented to person, oriented to place, oriented to time, patient oriented x3, moves all extremities, no focal motor deficits and CN's II-XI intact bilaterally Cranial nerves: Yes Equal, round and reactive pupils present Cognition (Neuro): normal cognition Extrem General: Yes full ROM, Yes no pedal edema and Yes no calf tenderness Psych Mental Status: mental status grossly normal Affect: normal affect Thought process: Normal thought process present Course Course Course Narrative: RME: 52 yold female presents to the ED for generalized itchy rash for the past two weeks. patient unknown of any new allergies. patietn denies any trouble breathing. no lip or tonue swelling. Medications Administered Discontinued Medications Generic Name Dose Route Start Last Admin Trade Name Freq PRN Reason Stop Dose Admin Loratadine 10 mg 11/18/22 18:07 11/18/22 18:18 Loratadine 10 Mg Tablet PO 11/18/22 18:08 10 mg ONCE ONE Administration Magnesium Oxide 400 mg 11/18/22 18:50 11/18/22 19:05 Magnesium Oxide 400 Mg Tablet PO 11/18/22 18:51 400 mg ONCE ONE Administration Medical Decision Making Medical Decision Making [facility] Narrative: Patient is a 52-year-old female with history of DM, colostomy presenting to the emergency department with complaint of erythematous, pruritic rash to face, chest, bilateral arms, and upper back for 2 weeks. On exam patient is awake, A+Ox3, VS WNL, afebrile, nontoxic appearing, normal neurological exam without focal deficits, erythema to face, erythematous maculopapular rash to chest, bilateral arms, negative Nikolsky, billings colored liquid stool in ostomy bag, abdomen soft and nontender, no CVA tenderness. Given reported symptoms and physical exam findings, differential for rash includes urticaria related to medication reaction, contact dermatitis, atopic dermatitis. Rash presentation not consistent with tinea, scabies, zoster. Unlikely DRESS, TTP, DIC, meningococcemia, necrotizing fasciitis, TEN/SJS, SSSS, TSS, anaphylaxis. Differential for diarrhea includes viral gastroenteritis, electrolyte abnormality, adverse effect of medication. Imaging deferred at this time as patient is without abdominal pain. Plan: labs, loratadine ordered Labs notable for no leukocytosis, no eosinophilia. Magnesium 1.5, magnesium oxide ordered PO. No evidence of ALFREDO, no other significant electrolyte abnormalities. Feel patient is stable for discharge home at this time. Will prescribe short course of prednisone. Instructed patient to begin using OTC antihistamine such as loratadine or cetirizine. Instructed patient to follow up with PCP tomorrow. Return precautions discussed at bedside. Patient verbalized understanding of and agreement with plan. Differential Diagnosis Differential Diagnoses: The differential diagnosis associated with the presentation includes As above. Lab Data [facility] Lab Attestation statement: I reviewed the patient's lab results. As above. 11/18/22 18:24 11/18/22 18:24 Labs: Lab Results 11/18/22 11/18/22 Range/Units 18:24 18:24 WBC 6.5 (4.8-10.8) X10*3/uL RBC 5.39 (4.20-5.50) X10*6/uL Hgb 15.8 (12.0-16.0) g/dl Hct 45.1 (37.0-47.0) % MCV 83.7 (80.0-98.0) fL MCH 29.3 (27.0-33.0) pg MCHC 35.0 (31.0-35.0) g/dl RDW 13.2 (11.0-16.0) % Plt Count 227 (160-400) X10*3/uL MPV 10.4 (9.4-12.3) fL Immature Gran % (Auto) 0.8 H (0.0-0.4) % Neut % (Auto) 68.4 (45-73) % Lymph % (Auto) 19.6 L (20-40) % [place] % (Auto) 5.8 (2-11) % Eos % (Auto) 5.2 H (0-4) % Baso % (Auto) 0.2 (0-2) % Lymph # (Auto) 1.3 (1.2-4.9) X10*3/uL [place] # (Auto) 0.4 (0.1-1.2) X10*3/uL Eos # (Auto) 0.3 (0.0-0.4) X10*3/uL Baso # (Auto) 0.0 (0.0-0.2) X10*3/uL Abs Immat Gran (auto) 0.05 H (0.00-0.03) X10*3/uL Absolute Neuts (auto) 4.5 (2.0-8.3) x10*3/uL Absolute Nucleated RBC 0.000 (0.0-0.012) X10*3/uL Nucleated RBC % (auto) 0.0 (0.0-0.2) /100WBC Sodium 138 (135-145) mmol/L Potassium 4.5 (3.3-5.1) mmol/L Chloride 105 (96-108) mmol/L Carbon Dioxide 21 L (22-29) mmol/L Anion Gap 17 (12-20) BUN 23 H (9-16) mg/dL Creatinine 1.11 (0.5-1.4) mg/dL Estim Creat Clear Calc 58.4 Estimated GFR 52 Random Glucose 235 H (60-115) mg/dL Calcium 10.8 H D (8.4-10.2) mg/dL Magnesium 1.5 L (1.6-2.6) mg/dL Total Bilirubin 0.6 (0.0-1.0) mg/dL AST 15 (5-31) U/L ALT 23 (0-31) U/L Alkaline Phosphatase 99 (39-117) U/L Total Protein 7.3 (6.5-8.0) g/dL Albumin 3.9 (3.5-5.0) g/dL External Record Review External record reviewed: Inpatient record, Office record and Outpatient record Prescription Management I considered prescription management with: Other (prednisone) Chronic Conditions Patient?s care impacted by: Diabetes Discharge Plan Discharge Clinical Impression: Urticaria, Diarrhea, Hypomagnesemia Patient Disposition: Home, Self-Care Instructions: Urticaria (ED), Acute Diarrhea (ED) Additional Instructions: You were evaluated in the emergency department today for a rash and diarrhea. Your evaluation including labs did not show evidence of any conditions requiring emergent intervention at this time. Your labs were reassuring and did not show evidence of an acute infection. Your magnesium level was low and you were given oral magnesium in the ED. Your diarrhea could be diet related. It is possible that your rash is related to recently starting gabapentin. Please contact your PCP tomorrow to discuss this. You are being prescribed a short course of steroids to reduce inflammation. Please monitor your blood glucose levels closely as this medication can elevate your blood glucose levels. You should also begin taking a daily allergy medication such as cetirizine (Zyrtec) or loratadine (Claritin). Return to the emergency department if you experience worsening rash, uncontrolled pain, fevers 100.4 F or greater, recurrent vomiting, shortness of breath, discharge from your rash, or any other concerning symptoms. Prescriptions: New prednisone 20 mg tablet 40 mg PO DAILY Qty: 10 0RF No Action No Sting Barrier Film Pads, Medicated See Rx Instructions topical .with ostomy change 30 Days Qty: 30 12RF Rx Instructions: topical .with ostomy change; buspirone 5 mg tablet 5 mg PO BID clonidine HCl 0.1 mg tablet 0.1 mg PO BID insulin glargine [Lantus U-100 Insulin] 100 unit/mL solution 40 unit subcut BID Qty: 10 2RF lisinopril 20 mg tablet 20 mg PO DAILY atorvastatin 10 mg tablet 10 mg PO DAILY (DME) colostomy bags Misc See Rx Instructions .ROUTE .MEDSUPPLY Qty: 5 Rx Instructions: As directed trazodone 50 mg tablet 50 mg PO BEDTIME PRN (Reason: Sleep) sertraline 50 mg tablet 50 mg PO DAILY Trulicity 0.75 mg/0.5 mL pen injector 0.75 mg subcut QWEEK sodium,potassium,mag sulfates [Suprep Bowel Prep Kit] 17.5-3.13-1.6 gram recon soln See Rx Instructions PO .COMPLEX Qty: 354 0RF Rx Instructions: DILUTE; drink full amount early evening before AND next morning at least 2 hr before procedure; follow w 960 mL water PO neomycin 500 mg tablet 1 g PO TID Qty: 6 0RF Rx Instructions: administer at 1 PM, 2 PM, and 11 PM the day prior to surgery erythromycin 500 mg tablet,delayed release (DR/EC) 1,000 mg PO TID Qty: 6 0RF Rx Instructions: 2 tabs at 1 pm, 2 pm and 11pm of day before surgery Interventions: ED Discharge Assessment Last Done: 11/18/22 19:14 Discharge Date/Time: 11/18/22 19:15
[2022-11-18 18:36] VITALS: BP 128/70; TEMP 36.1; O2SAT 99
== END 2022-11-18 19:15 | disposition home or self-care (01) ==
PROVIDERS: Emergency Provider Emergency Medicine; PCP Nurse Practitioner Family
DX: R21 Rash and other nonspecific skin eruption (principal); E11.9 Type 2 diabetes mellitus without complications; Z93.3 Colostomy status; L50.9 Urticaria, unspecified; E83.42 Hypomagnesemia; R19.7 Diarrhea, unspecified
CPT/HCPCS: 36415; 80053; 83735; 85025; 99283

== ENCOUNTER 2022-12-04 19:17 | Emergency (ER) | payer OTHER, SELFPAY ==
--- NOTE | ~2022-12-04 | US_ITS ---
EXAMINATION: US ABDOMEN LIMITED CLINICAL INFORMATION: Elevated LFTs. COMPARISON: CT 06/27/2022 TECHNIQUE: Real-time imaging of the right upper quadrant abdominal viscera. FINDINGS: Per technologist report, performance of the exam was limited due to patient body habitus. PANCREAS: Not seen, obscured by overlying bowel gas. LIVER: The liver is normal in size. The liver contour is normal. There is diffusely increased liver parenchymal echogenicity, consistent with hepatic steatosis. No focal hepatic lesion. There is no intrahepatic biliary duct dilatation seen. GALLBLADDER: Gallstones are identified. No abnormal wall thickening or pericholecystic fluid. COMMON BILE DUCT: Normal in caliber measuring 0.5 cm in diameter. RIGHT KIDNEY: No hydronephrosis. No renal calculi or focal parenchymal lesions. The kidney measures 11.0 cm in maximum dimension. FREE FLUID: None. US/US abdomen limited IMPRESSION: 1. Cholelithiasis without additional findings of cholecystitis. 2. Hepatic steatosis.
[2022-12-04 20:24] VITALS: BP 173/79; PULSE 70; RESP 18; TEMP 35.8; O2SAT 100; BMI 38.6
--- NOTE | 2022-12-04 22:03 | ED.SKABFB ---
HPI - Skin/Abscess/Foreign Bdy General Chief complaint: Skin/Abscess/Foreign Body Stated complaint: rash over body, dehydrated Time Seen by Provider: 12/04/22 22:12 Source: patient Mode of arrival: ambulatory Limitations: no limitations History of Present Illness HPI narrative: 52-year-old female history of diabetes, skin abscesses. Came in today for evaluation of irritated skin of the upper extremities and bilateral knees, started about a month ago generalized skin redness and itching with burning patient was seen and evaluated was told her condition is due to sunburn, patient also started new medication about a month ago, for the past week patient stated that her skin started to peel was more irritation and redness to the skin, patient feels itching and burning sensation all over her body. No fever or chills patient always feels cold. Patient also feels dehydrated. Patient started to take gabapentin about 2 weeks before developing her symptoms. Related Data Home Medications Medication Instructions Recorded Confirmed atorvastatin 10 mg tablet 10 mg PO DAILY 04/06/20 08/14/22 colostomy bags #5 ea 04/06/20 05/31/22 dulaglutide 0.75 mg/0.5 mL 0.75 mg subcut QWEEK 04/06/20 08/14/22 subcutaneous pen injector (Trulicity) lisinopril 20 mg tablet 20 mg PO DAILY 04/06/20 08/14/22 sertraline 50 mg tablet 50 mg PO DAILY 04/06/20 08/14/22 trazodone 50 mg tablet 50 mg PO BEDTIME PRN Sleep 04/06/20 08/14/22 buspirone 5 mg tablet 5 mg PO BID 08/15/22 08/15/22 clonidine HCl 0.1 mg tablet 0.1 mg PO BID 08/15/22 08/15/22 Previous Rx's Medication Instructions Recorded skin protectants, misc. (No Sting See Rx Instructions topical .with 01/25/21 Barrier Film Pads) ostomy change 30 days #30 ea insulin glargine 100 unit/mL 40 unit (0.4 mL) subcut BID #10 mL 05/22/21 subcutaneous solution (Lantus U-100 Insulin) erythromycin 500 mg tablet,delayed 1,000 mg PO TID #6 tabs 07/25/22 release neomycin 500 mg tablet 1 g PO TID 3 doses #6 tabs 07/25/22 sodium,potassium,mag sulfates 17.5 See Rx Instructions PO .COMPLEX 07/25/22 gram-3.13 gram-1.6 gram oral soln #354 mL (Suprep Bowel Prep Kit) prednisone 20 mg tablet 40 mg PO DAILY #10 tabs 11/18/22 prednisone 20 mg tablet 20 mg PO BID #10 tabs 12/05/22 Allergies Allergy/AdvReac Type Severity Reaction Status Date / Time stoma pace Allergy Unknown severe Uncoded 08/15/22 11:42 rash/Itch Review of Systems Review of Systems: All other systems are reviewed and are negative Constitutional: Reports as per HPI and Reports no additional constitutional complaints Eyes: Reports as per HPI and Reports no additional eye complaints Reports system reviewed and no additional complaints, except as documented Cardiovascular: Reports as per HPI and Reports no additional cardiovascular complaints Respiratory: Reports as per HPI and Reports no additional respiratory complaints Gastrointestinal: Reports as per HPI and Reports no additional gastrointestinal complaints Genitourinary: Reports no additional female genitourinary complaints Musculoskeletal: Reports no additional musculoskeletal complaints Skin/Breast: Reports system reviewed and no additional complaints, except as docu Psychiatric: Reports no additional psychiatric complaints Endocrine: Reports no additional endocrine complaints Hematologic/Lymphatic: Reports no additional hematologic/lymphatic complaints Allergic/Immunologic: Reports no additional allergic/immunologic complaints Reports system reviewed and no additional complaints, except as documented and Reports Abnormal speech present [facility] Past Medical History Medical History Anxiety and depression Boils of multiple sites Colostomy in place COVID-19 Depression Diabetes mellitus Diverticular disease Elevated cholesterol GERD (gastroesophageal reflux disease) History of herpes genitalis HTN (hypertension) Left sided abdominal pain Morbid obesity Surgical History History of colon resection Hx of section Hx of colonoscopy Family History Family History Mother Stroke Cardiac arrest Father Cardiac arrest Diabetes Brother Diabetes Social History Social History Household Members Other:: Sister Are you a primary patient centered care specialist to a significant other at home: No Do you presently have visiting nurse or other home services: No Alcohol intake: current Alcohol intake frequency: does not drink Patient Tobacco Use Status: Current someday Tobacco user Tobacco use type: Cigarette Cigarettes Per Day: 0 Years Smoked: 25 Smoked in Last 30 Days: Yes Second Hand Smoke Exposure: Yes (boyfriend) Use of substances other than those prescribed or required for medical reasons: No Advance Directives: No Advance Directives Information Provided: No Advance Directives Date on File: 07/23/16 Physical Exam Vital Signs: Vital Signs: Last Vital Signs Temp 98.7 F 12/05/22 03:15 Pulse 70 12/05/22 03:15 Resp 16 12/05/22 03:15 BP 155/74 H 12/05/22 03:15 Pulse Ox 100 12/04/22 20:24 O2 Del Method Room Air 12/04/22 20:24 BMI result Body Mass Index 38.6 Vital signs have been reviewed as appeared to be correct. Blood pressure normal. Heart rate normal. Respiration rate normal. Temperature normal. Oxygen saturation normal. Appearance: Alert. Oriented X3. No acute distress. Head: Normal external exam. Normocephalic. Atraumatic. No Castaneda signs noted. No raccoon eyes noted Eyes: PERRLA. EOMI. Conjunctiva and sclera normal. Eyelids normal. ENT: TM's Normal. Pharynx normal. Uvula midline. Moist mucous membranes. No trismus noted. No drooling noted. No muffled voice noted. Neck: Normal inspection. Neck supple. FROM. No adenopathy. Thyroid Normal. No meningeal signs. No neck mass noted. CVS: Normal heart rate and rhythm. Heart sound normal. No murmurs noted. Pulses normal throughout. Respiratory: No respiratory distress. Painless inspiration. Breath sounds normal. No wheezes/rales/rhonchi noted. Chest nontender. No accessory muscle usage noted or decreased air movement noted. Abdomen: Soft and nontender. Bowel sounds normal in all 4 quadrants. No distention noted. No organomegaly noted. No visible injury noted. Back: No CVA tenderness. Full range of motion noted. Skin: Skin warm and dry. Normal skin color. Normal skin turgor. No rashes/lesions/lacerations noted. Extremities: Bilateral upper extremities redness, but sensitive to touch, no hotness, no area of fluctuation, superficial skin peeling on both arms and bilateral knees no exfoliation of the skin, no vesicles or rashes. Neuro: Oriented X 3. Cranial nerve exam: II-XII are grossly intact No motor deficit. No sensory deficit. Reflexes normal. Course Course Course Narrative: Came in for evaluation of nonspecific rash with the skin irritation symptoms started a month ago, about 2 weeks after starting gabapentin. Labs are unremarkable, patient do not appear severely ill, patient was instructed to stop taking gabapentin and will be taking short course of prednisone, patient was instructed to follow-up with PCP. Medications Administered Discontinued Medications Generic Name Dose Route Start Last Admin Trade Name Freq PRN Reason Stop Dose Admin Sodium Chloride 1,000 mls @ 999 mls/hr 12/04/22 22:01 12/04/22 23:28 Ns IV 12/04/22 23:01 Infused .Q1H1M ONE Infusion Ketorolac Tromethamine 30 mg 12/04/22 22:01 12/04/22 22:27 Ketorolac Tromethamine 30 Mg/Ml Vial IVPUSH 12/04/22 22:02 30 mg ONCE ONE Administration Methylprednisolone Sodium Succinate 125 mg 12/04/22 22:01 12/04/22 22:27 Methylprednisolone Sod Succ 125 Mg/2 Ml Vial IVPUSH 12/04/22 22:02 125 mg ONCE ONE Administration Medical Decision Making Differential Diagnosis Differential Diagnoses: The differential diagnosis associated with the presentation includes (Cellulitis, allergic reaction, gallstone, electrolyte abnormalities, anemia, , UTI.) Admission/Observation Consideration of admission/observation: Escalation of care including admission/observation considered Lab Data MDM Lab Attestation statement: I reviewed the patient's lab results. 12/04/22 22:36 12/04/22 22:36 Labs: Lab Results 12/04/22 12/04/22 12/04/22 Range/Units 22:36 22:36 22:36 WBC 8.9 (4.8-10.8) X10*3/uL RBC 4.21 D (4.20-5.50) X10*6/uL Hgb 12.2 D (12.0-16.0) g/dl Hct 35.7 L D (37.0-47.0) % MCV 84.8 (80.0-98.0) fL MCH 29.0 (27.0-33.0) pg MCHC 34.2 (31.0-35.0) g/dl RDW 12.7 (11.0-16.0) % Plt Count 183 (160-400) X10*3/uL MPV 10.0 (9.4-12.3) fL Immature Gran % (Auto) 0.9 H (0.0-0.4) % Neut % (Auto) 72.7 (45-73) % Lymph % (Auto) 17.0 L (20-40) % [place] % (Auto) 5.0 (2-11) % Eos % (Auto) 4.1 H (0-4) % Baso % (Auto) 0.3 (0-2) % Lymph # (Auto) 1.5 (1.2-4.9) X10*3/uL [place] # (Auto) 0.4 (0.1-1.2) X10*3/uL Eos # (Auto) 0.4 (0.0-0.4) X10*3/uL Baso # (Auto) 0.0 (0.0-0.2) X10*3/uL Abs Immat Gran (auto) 0.08 H (0.00-0.03) X10*3/uL Absolute Neuts (auto) 6.4 (2.0-8.3) x10*3/uL Absolute Nucleated RBC 0.000 (0.0-0.012) X10*3/uL Nucleated RBC % (auto) 0.0 (0.0-0.2) /100WBC ESR 38 H (0-20) MM/HR Sodium 138 (135-145) mmol/L Potassium 4.1 (3.3-5.1) mmol/L Chloride 101 (96-108) mmol/L Carbon Dioxide 29 (22-29) mmol/L Anion Gap 12 (12-20) BUN 19 H (9-16) mg/dL Creatinine 1.00 (0.5-1.4) mg/dL Estim Creat Clear Calc 66.3 Estimated GFR 58 Random Glucose 327 H (60-115) mg/dL Calcium 10.0 D (8.4-10.2) mg/dL Total Bilirubin 0.3 (0.0-1.0) mg/dL Direct Bilirubin 0.1 (0.0-0.5) mg/dL AST 18 (5-31) U/L ALT 30 (0-31) U/L Alkaline Phosphatase 125 H (39-117) U/L C-Reactive Protein 4.52 H (< or = 0.50) mg/dL Total Protein 6.4 L (6.5-8.0) g/dL Albumin 3.4 L (3.5-5.0) g/dL Lipase 37 (8-78) U/L Urine Color Urine Appearance Urine pH (5.0-9.0) Ur Specific [place] (1.005-1.025) Urine Protein (Neg-Trace) mg/dL Urine Glucose (UA) (Negative) mg/dL Urine Ketones (Negative) mg/dL Urine Blood (Negative) Urine Nitrite (Negative) Ur Leukocyte Esterase (Negative) Urine RBC (0-2) /HPF Urine WBC (0-5) /HPF Ur Squamous Epith Cells (0-2) /HPF Urine Bacteria (None Seen) Hyaline Casts (0-2) /LPF Urine Test (NEGATIVE) 12/04/22 12/04/22 Range/Units 22:36 22:36 WBC (4.8-10.8) X10*3/uL RBC (4.20-5.50) X10*6/uL Hgb (12.0-16.0) g/dl Hct (37.0-47.0) % MCV (80.0-98.0) fL MCH (27.0-33.0) pg MCHC (31.0-35.0) g/dl RDW (11.0-16.0) % Plt Count (160-400) X10*3/uL MPV (9.4-12.3) fL Immature Gran % (Auto) (0.0-0.4) % Neut % (Auto) (45-73) % Lymph % (Auto) (20-40) % [place] % (Auto) (2-11) % Eos % (Auto) (0-4) % Baso % (Auto) (0-2) % Lymph # (Auto) (1.2-4.9) X10*3/uL [place] # (Auto) (0.1-1.2) X10*3/uL Eos # (Auto) (0.0-0.4) X10*3/uL Baso # (Auto) (0.0-0.2) X10*3/uL Abs Immat Gran (auto) (0.00-0.03) X10*3/uL Absolute Neuts (auto) (2.0-8.3) x10*3/uL Absolute Nucleated RBC (0.0-0.012) X10*3/uL Nucleated RBC % (auto) (0.0-0.2) /100WBC ESR (0-20) MM/HR Sodium (135-145) mmol/L Potassium (3.3-5.1) mmol/L Chloride (96-108) mmol/L Carbon Dioxide (22-29) mmol/L Anion Gap (12-20) BUN (9-16) mg/dL Creatinine (0.5-1.4) mg/dL Estim Creat Clear Calc Estimated GFR Random Glucose (60-115) mg/dL Calcium (8.4-10.2) mg/dL Total Bilirubin (0.0-1.0) mg/dL Direct Bilirubin (0.0-0.5) mg/dL AST (5-31) U/L ALT (0-31) U/L Alkaline Phosphatase (39-117) U/L C-Reactive Protein (< or = 0.50) mg/dL Total Protein (6.5-8.0) g/dL Albumin (3.5-5.0) g/dL Lipase (8-78) U/L Urine Color Yellow Urine Appearance Clear Urine pH 5.5 (5.0-9.0) Ur Specific [place] >= 1.030 H (1.005-1.025) Urine Protein Negative (Neg-Trace) mg/dL Urine Glucose (UA) >=1000 H (Negative) mg/dL Urine Ketones Negative (Negative) mg/dL Urine Blood Negative (Negative) Urine Nitrite Negative (Negative) Ur Leukocyte Esterase Negative (Negative) Urine RBC 0-2 (0-2) /HPF Urine WBC 0-5 (0-5) /HPF Ur Squamous Epith Cells 0-2 (0-2) /HPF Urine Bacteria None Seen (None Seen) Hyaline Casts 0-2 (0-2) /LPF Urine Test NEGATIVE (NEGATIVE) Discharge Plan Discharge Clinical Impression: Rash Patient Disposition: Home, Self-Care Instructions: Acute Rash (ED) Additional Instructions: Stop taking gabapentin, follow-up with your primary care. Prescriptions: New prednisone 20 mg tablet 20 mg PO BID Qty: 10 0RF No Action No Sting Barrier Film Pads, Medicated See Rx Instructions topical .with ostomy change 30 Days Qty: 30 12RF Rx Instructions: topical .with ostomy change; buspirone 5 mg tablet 5 mg PO BID clonidine HCl 0.1 mg tablet 0.1 mg PO BID insulin glargine [Lantus U-100 Insulin] 100 unit/mL solution 40 unit subcut BID Qty: 10 2RF prednisone 20 mg tablet 40 mg PO DAILY Qty: 10 0RF lisinopril 20 mg tablet 20 mg PO DAILY atorvastatin 10 mg tablet 10 mg PO DAILY (DME) colostomy bags Misc See Rx Instructions .ROUTE .MEDSUPPLY Qty: 5 Rx Instructions: As directed trazodone 50 mg tablet 50 mg PO BEDTIME PRN (Reason: Sleep) sertraline 50 mg tablet 50 mg PO DAILY Trulicity 0.75 mg/0.5 mL pen injector 0.75 mg subcut QWEEK sodium,potassium,mag sulfates [Suprep Bowel Prep Kit] 17.5-3.13-1.6 gram recon soln See Rx Instructions PO .COMPLEX Qty: 354 0RF Rx Instructions: DILUTE; drink full amount early evening before AND next morning at least 2 hr before procedure; follow w 960 mL water PO neomycin 500 mg tablet 1 g PO TID Qty: 6 0RF Rx Instructions: administer at 1 PM, 2 PM, and 11 PM the day prior to surgery erythromycin 500 mg tablet,delayed release (DR/EC) 1,000 mg PO TID Qty: 6 0RF Rx Instructions: 2 tabs at 1 pm, 2 pm and 11pm of day before surgery
[2022-12-04] MEDS: methylPREDNISolone Sod Succ 125 MG/2 ML VIAL IVPUSH (22:27)
[2022-12-04] MEDS: 0.9 % Sodium Chloride 1,000 ML 999 ML IV (22:27)
[2022-12-04] MEDS: Ketorolac Tromethamine 30 MG/ML VIAL IVPUSH (22:27)
[2022-12-04 22:41] VITALS: BP 169/83
[2022-12-04 22:45] LABS: MANUAL DIFF FLAG NO
[2022-12-04 22:51] LABS: Basophils Percent Auto 0.3 % (0-2); Eosinophils Absolute Auto 0.4 X10*3/uL (0.0-0.4); Eosinophils Percent Auto 4.1 % (0-4); Hematocrit 35.7 % (37.0-47.0); Hemoglobin 12.2 g/dl (12.0-16.0); Imm Gran Abs Auto 0.08 X10*3/uL (0.00-0.03); Imm Gran Pct Auto 0.9 % (0.0-0.4); Lymphocytes Absolute Auto 1.5 X10*3/uL (1.2-4.9); Mean Corpuscular HGB Conc 34.2 g/dl (31.0-35.0); Mean Corpuscular Volume 84.8 fL (80.0-98.0); Monocytes Absolute Auto 0.4 X10*3/uL (0.1-1.2); Neutrophils Absolute Auto 6.4 x10*3/uL (2.0-8.3); Neutrophils Percent Auto 72.7 % (45-73); Platelet Count 183 X10*3/uL (160-400); Red Blood Count 4.21 X10*6/uL (4.20-5.50); Red Cell Distribution Width 12.7 % (11.0-16.0); White Blood Count 8.9 X10*3/uL (4.8-10.8)
[2022-12-04 22:57] LABS: Appearance Urine Clear; Color Urine Yellow; Glucose Urine UA >=1000 mg/dL (Negative); Leukocyte Esterase Urine Negative (Negative); Nitrite Urine Negative (Negative); PH 5.5 (5.0-9.0); Specific Gravity - Urine >= 1.030 (1.005-1.025); UMIC TRIGGER UACC YES; Urine Blood Negative (Negative); Urine Ketones Negative (Negative); Urine Protein Negative (Neg-Trace)
[2022-12-04 22:58] LABS: UPreg QC Valid YES; Urine Pregnancy NEGATIVE (NEGATIVE)
[2022-12-04 23:02] LABS: Alanine Aminotransferase 30 U/L (0-31); Albumin Level 3.4 g/dL (3.5-5.0); Alkaline Phosphatase 125 U/L (39-117); Anion Gap 12 (12-20); Aspartate Amino Transferase 18 U/L (5-31); Bacteria Urine None Seen (None Seen); Bilirubin Direct 0.1 mg/dL (0.0-0.5); Bilirubin Total 0.3 mg/dL (0.0-1.0); Blood Urea Nitrogen 19 mg/dL (9-16); C Reactive Protein 4.52 mg/dL (< or = 0.50); Carbon Dioxide 29 mmol/L (22-29); Chloride 101 mmol/L (96-108); Creatinine Clr Calc Pharmacy 66.3; Estimated Glomerular Filt Rate 58; Glucose Random 327 mg/dL (60-115); Hyaline Casts Urine 0-2 /LPF (0-2); Lipase 37 U/L (8-78); Potassium 4.1 mmol/L (3.3-5.1); RBC Urine 0-2 /HPF (0-2); Sodium 138 mmol/L (135-145); Squamous Epithelial Cell Urine 0-2 /HPF (0-2); Total Protein 6.4 g/dL (6.5-8.0); WBC Urine 0-5 /HPF (0-5)
[2022-12-04 23:36] LABS: Erythrocyte Sedimentation Rate 38 MM/HR (0-20)
[2022-12-05 03:15] VITALS: BP 155/74; PULSE 70; RESP 16; TEMP 37.1
== END 2022-12-05 06:19 | disposition home or self-care (01) ==
PROVIDERS: Emergency Provider Emergency Medicine
DX: R21 Rash and other nonspecific skin eruption (principal); R10.11 Right upper quadrant pain; F17.210 Nicotine dependence, cigarettes, uncomplicated; Z71.6 Tobacco abuse counseling; Z79.899 Other long term (current) drug therapy
CPT/HCPCS: 36415; 76705; 80048; 80076; 81001; 81025; 83690; 85025; 85652; 86140; 96374; 96375; 99284; 99285; J1885; J2930

== ENCOUNTER 2023-04-08 14:34 | Outpatient (AMB) | payer OTHER, SELFPAY ==
--- NOTE | 2023-04-08 14:35 | MHC.OFFVIS ---
Intake Vital Signs 04/08/23 14:41 Height 5 ft Weight 203 lb 8 oz BMI 39.7 BP 135/84 Blood Pressure Location Lt brachial Position Sitting Pulse 99 Intake Visit Reasons: Colostomy status Intake Note: Patient is seen in office for follow up visit, following colostomy status. Patient c/o: had her AIC retaking is down to 8 and has a follow up with PCP to recheck on 04/29/23 Section [place] Required: No Accompanied by: Self / Same As Patient Allergies stoma pace Allergy (Unknown, Uncoded 04/08/23 14:41) severe rash/Itch Medication List - Last Reconciled 04/08/23 by Winston Meza MD atorvastatin 10 mg PO DAILY buspirone 5 mg PO BID clonidine HCl 0.1 mg PO BID colostomy bags As directed dulaglutide (Trulicity) 0.75 mg subcut QWEEK erythromycin 1,000 mg (2 x 500 mg) PO TID insulin glargine (Lantus U-100 Insulin) 40 units (0.4 mL) subcut BID lisinopril 20 mg PO DAILY neomycin 1 g (2 x 500 mg) PO TID 3 doses prednisone 40 mg (2 x 20 mg) PO DAILY prednisone 20 mg PO BID sertraline 50 mg PO DAILY skin protectants, misc. (No Sting Barrier Film Pads) topical .with ostomy change; 30 days sodium,potassium,mag sulfates 17.5-3.13-1.6 gram (Suprep Bowel Prep Kit) DILUTE; drink full amount early evening before AND next morning at least 2 hr before procedure; follow w 960 mL water PO trazodone 50 mg PO BEDTIME PRN HPI Colostomy status HPI Details I had scheduled her for reversal however colostomy last July,. However, she was canceled because of her hemoglobin A1c at 10. She says that she had been started on insulin since then. She says that her A1c levels are now down to 8. However, she had been depressed because of the of her boyfriend and she had gained weight again. She says she has up by over 20 lb. She denies any problems with her stoma. [facility] Medical History History of herpes genitalis GERD (gastroesophageal reflux disease) Anxiety and depression HTN (hypertension) Elevated cholesterol Left sided abdominal pain Boils of multiple sites COVID-[address] Diverticular disease Diabetes mellitus Depression Morbid obesity Surgical History Hx of colonoscopy Hx of section History of colon resection Family History Mother Stroke Cardiac arrest Father Cardiac arrest Diabetes Brother Diabetes Social History Household Members Other:: Sister Are you a primary healthcare marketer to a significant other at home: No Do you presently have visiting nurse or other home services: No Alcohol intake: current Alcohol intake frequency: does not drink Patient Tobacco Use Status: Current someday Tobacco user Tobacco use type: Cigarette Cigarettes Per Day: 0 Years Smoked: 25 Second Hand Smoke Exposure: Yes (boyfriend) Advance Directives Date on File: 07/23/16 Review of Systems Const Denies chills and Denies fever(s) Card Denies chest pain, Denies dyspnea and Denies dyspnea on exertion Resp Denies cough, Denies dyspnea and Denies dyspnea on exertion GI Denies hematochezia and Denies change in bowel habits Denies hematuria Musc Details: Knee pain on the right side Denies back pain, Reports arthralgias and Denies limited range of motion Neuro Denies focal weakness and Denies convulsions Psych Denies depression and Denies mood swings Physical Exam Vital Signs: Last Vital Signs Pulse 99 04/08/23 14:41 BP 135/84 04/08/23 14:41 BMI result Body Mass Index 39.7 Const Other: Morbidly obese General: comfortable and no acute distress Orientation/consciousness: patient oriented x3 Neck Neck: Yes no lymphadenopathy Resp Auscultation: clear to auscultation bilaterally Cardio Rhythm: regular rhythm GI Other: Stoma on the left side functioning, she has a large pannus Palpation (GI): Soft to palpation, nontender and no guarding Neuro General: patient oriented x3 Assessment & Plan Assessment & Plan (1) Colostomy in place: Code(s): Z93.3 - Colostomy status Plan: Her hemoglobin A1c has decreased significantly and this is down to 8. However, she has gained about 20 lb again. She has a large pannus and her BMI is almost 40. I told her that we still have worked to do with regards to her weight again. I would like her to decrease her weight to around 180 as she does have a very large pannus at this time making her at risk for perioperative complications She says she understands this and states that she was expecting this. She says she is motivated to be healthier and to drop some weight. She will see him again in June 2023 to be re-evaluated for reversal of her stoma. She is comfortable with the plan. Coding Level of Care Code Est Pt Level 3 (15746) Diagnoses Colostomy in place Z93.3
[2023-04-08 14:41] VITALS: BP 135/84; PULSE 99; BMI 39.7
== END 2023-04-08 15:01 | disposition home or self-care (01) ==
PROVIDERS: Visit Provider Surgery
DX: Z93.3 Colostomy status (principal)
CPT/HCPCS: 99213

== ENCOUNTER → 2023-04-08 14:34 | Outpatient (BNVA) | payer OTHER, SELFPAY | PROVIDERS: Visit Provider Surgery | DX: Z93.3 Colostomy status (principal) | CPT/HCPCS: 99212 ==

== ENCOUNTER 2024-07-03 11:30 | Inpatient (IN) | payer OTHER, SELFPAY ==
--- NOTE | ~2024-07-03 | XR_ITS ---
EXAMINATION: XR LUMBAR SPINE 2-3 VIEWS HISTORY: pain COMPARISON: There are no prior studies for comparison. FINDINGS: AP, lateral, and coned down views of the lumbar spine are submitted. Osseous mineralization is normal. Five nonrib-bearing lumbar vertebral bodies are identified, maintaining normal height and alignment without evidence of fracture or spondylolisthesis. There is mild degenerative disc disease with anterior osteophyte formation, most prominently involving the lower thoracic spine. There is severe degenerative change of the facet joints. There is cholelithiasis. XR/XR lumbar spine 2-3V IMPRESSION: Degenerative changes of the lumbar spine as described. Electronically signed by: Godwin Mohamud MD 07/03/2024 12:29 PM [facility] [place]
--- NOTE | ~2024-07-03 | CT_ITS ---
CLINICAL HISTORY: R O urinary obstruction and r o malignancy CT abdomen and pelvis without contrast Comparison: US/SR - US ABDOMEN LIMITED - 12/04/22 23:[address]/REG/SR - CT ABDOMEN PELVIS W IV CON - 06/27/22 13:42 EST Findings: Examination is limited by without contrast. Lung bases are clear. No pleural effusion. Hepatic steatosis. Pancreas, Spleen and both adrenals show normal size, shape and attenuation on present unenhanced scan. No CBD dilatation. There are gallstones in the gallbladder. Both kidneys reveal normal in size, shape, position and attenuation. Left kidney stone. No hydronephrosis. The IVC, aorta and portal vein are within normal position and caliber. No evidence of retroperitoneal lymphadenopathy or ascites. Colonic diverticulosis. There is bowel wall thickening of the ascending colon. Left colectomy and Left lower quadrant colostomy. Appendix appears normal. Urinary bladder reveals normal lumen and jones. The pelvic organs are unremarkable. Visualized osseous structures appear unremarkable. No lytic or sclerotic bony lesion. IMPRESSION: Nonobstructing left kidney stones. No hydronephrosis. Cholelithiasis. Colonic diverticulosis. There is bowel wall thickening of the ascending colon. Acute diverticulitis, colitis or inflammatory bowel disease can not be excluded. Additional findings as above. This document has been electronically signed by: Salazar Sr MD on 07/03/2024 19:35:53
--- NOTE | ~2024-07-03 | US_ITS ---
CLINICAL HISTORY: HTN, doppler to rule out renal artery thrombosis US Renal with Doppler Comparison: CT/SR - CT ABDOMEN PELVIS WO IV CON - 07/03/24 17:55 EST Findings: Right kidney normal size and echotexture, 10.2 cm length. No hydronephrosis. Normal color Doppler within the kidney. Normal parenchymal waveforms with normal resistive indices. Resistive index 0.71 - 0.77 Left kidney normal size and echotexture, 11.1 cm length. No hydronephrosis. Normal color Doppler within the kidney. Normal parenchymal waveforms with normal resistive indices. Resistive index 0.71-0.73. Significant bowel gas obscures the aorta and renal arteries. IMPRESSION: 1. Normal appearing kidneys. Bilateral flow is identified however the main renal artery was not seen due to significant bowel gas. If there is high clinical concern for nonocclusive thrombus within the renal arteries recommend CTA of the abdomen. This document has been electronically signed by: Venice Giraldo MD on 07/07/2024 08:58:14
--- NOTE | ~2024-07-03 | XR_ITS ---
EXAMINATION: XR PELVIS CLINICAL INFORMATION: pain COMPARISON: None available. TECHNIQUE: AP view of the pelvis. FINDINGS: No fracture, dislocation, or suspicious bone lesion. Normal bone mineralization. Normal alignment. Mild degenerative arthropathy SI joints and hip joints. Degenerative changes lower lumbar spine. Soft tissues appear normal. XR/XR pelvis 1-2V IMPRESSION: No acute findings of the pelvis. Electronically signed by: Roberto Oneil MD 07/03/2024 12:28 PM DONNIE
--- NOTE | ~2024-07-03 | US_ITS ---
EXAMINATION: US TRIPLEX LOWER EXTREMITY, BILATERAL CLINICAL INFORMATION: Bilateral lower extremity pain. COMPARISON: None available. TECHNIQUE: Color-flow triplex imaging with spectral analysis and compression Doppler were performed on the bilateral lower extremities. FINDINGS: RIGHT LEG: There is occlusive thrombus throughout the common femoral vein, extending through the superficial vein into the popliteal vein and likely calf veins. LEFT LEG: There is partially occlusive thrombus in the left common femoral vein, extending into the greater saphenous vein, extending into the superficial femoral vein proximally. The mid and distal superficial femoral vein, popliteal vein, and deep calf veins appear patent. US/US venous duplex LE BI IMPRESSION: 1. POSITIVE RIGHT leg deep venous thrombosis, extensive. 2. POSITIVE LEFT leg partially occlusive deep venous thrombosis. There is also thrombosis of the greater saphenous vein on the left. Legal Investigator notified Suleiman Ledesma PA-C of these results at the time of the termination of the examination. Electronically signed by: Roberto Oneil MD 07/03/2024 02:57 PM DONNIE CASILLAS
[2024-07-03 11:43] VITALS: BP 154/89; PULSE 106; RESP 20; TEMP 36.1; O2SAT 98; BMI 40.4
--- NOTE | 2024-07-03 11:45 | ED_ITS ---
HPI - General Adult General Chief complaint: Extremity Problem Stated complaint: leg pain Time Seen by Provider: 07/03/24 16:56 Source: patient Mode of arrival: ambulatory Limitations: no limitations History of Present Illness ED Provider: Silas Clark PA-C HPI narrative: 53 yo female with history of DM2 on insulin, morbid obesity, depression/anxiety, hx perforated diverticulitis s/p emergent Linnea's procedure in 2017 who presents to the ER for evaluation of bilateral leg pain for the last 2 weeks. She reports the pain has been going back and forth between both of her legs. The pain is described as tingling, pins and needles sensation and aching. Her legs are not swollen. She denies CABRERA, SOB, but reports some palpitations when laying flat at night. No chest pain. Her glucose has been poorly controlled with sugars 300s. No fevers at home. MD complaint: leg pain Onset (ago): week(s) (2) Location: left, right and lower extremity Radiation: distal Severity: moderate Quality: other (pins and needles) Pain Consistency: intermittent Relieving factors: none Exacerbating factors: none Associated symptoms: denies other symptoms Treatments prior to arrival: none Related Data Home Medications ?Medication ?Instructions ?Recorded ?Confirmed atorvastatin 10 mg tablet 10 mg PO DAILY 04/06/20 04/08/23 colostomy bags #5 ea 04/06/20 04/08/23 dulaglutide 0.75 mg/0.5 mL 0.75 mg subcut QWEEK 04/06/20 04/08/23 subcutaneous pen injector (Trulicity) lisinopril 20 mg tablet 20 mg PO DAILY 04/06/20 04/08/23 sertraline 50 mg tablet 50 mg PO DAILY 04/06/20 04/08/23 trazodone 50 mg tablet 50 mg PO BEDTIME PRN Sleep 04/06/20 04/08/23 buspirone 5 mg tablet 5 mg PO BID 08/15/22 04/08/23 clonidine HCl 0.1 mg tablet 0.1 mg PO BID 08/15/22 04/08/23 Previous Rx's ?Medication ?Instructions ?Recorded skin protectants, misc. (No Sting See Rx Instructions topical .with 01/25/21 Barrier Film Pads) ostomy change 30 days #30 ea insulin glargine 100 unit/mL 40 unit (0.4 mL) subcut BID #10 mL 05/22/21 subcutaneous solution (Lantus U-100 Insulin) erythromycin 500 mg tablet,delayed 1,000 mg (2 x 500 mg) PO TID #6 07/25/22 release tabs neomycin 500 mg tablet 1 g (2 x 500 mg) PO TID 3 doses #6 07/25/22 tabs sodium,potassium,mag sulfates 17.5 See Rx Instructions PO .COMPLEX 07/25/22 gram-3.13 gram-1.6 gram oral soln #354 mL (Suprep Bowel Prep Kit) prednisone 20 mg tablet 40 mg (2 x 20 mg) PO DAILY #10 tabs 11/18/22 prednisone 20 mg tablet 20 mg PO BID #10 tabs 12/05/22 Allergies Allergy/AdvReac Type Severity Reaction Status Date / Time stoma pace Allergy Unknown severe Uncoded 07/03/24 11:45 rash/Itch Review of Systems 2 Review of Systems: Yes all other systems are reviewed and are negative PMFSH Past Medical History Medical History History of herpes genitalis GERD (gastroesophageal reflux disease) Anxiety and depression HTN (hypertension) Elevated cholesterol Left sided abdominal pain Boils of multiple sites COVID-[address] Diverticular disease Diabetes mellitus Depression Morbid obesity Surgical History Hx of colonoscopy Hx of section History of colon resection Family History Family History Mother Stroke Cardiac arrest Father Cardiac arrest Diabetes Brother Diabetes Social History Social History Household Members Other:: Sister Are you a primary director long term care to a significant other at home: No Do you presently have visiting nurse or other home services: No Alcohol intake: current Alcohol intake frequency: does not drink Patient Tobacco Use Status: Current someday Tobacco user Tobacco use type: Cigarette Cigarettes Per Day: 0 Years Smoked: 25 Second Hand Smoke Exposure: Yes (boyfriend) Advance Directives: No Advance Directives Information Provided: No Advance Directives Date on File: 07/23/16 Physical Exam ED Vital Signs: Vital Signs - 24 hr 07/03/24 11:43 07/03/24 17:35 Temperature 97.0 F 98.2 F Pulse Rate 106 H 80 Respiratory Rate 20 16 Blood Pressure 154/89 H 179/65 H Pulse Oximetry 98 98 Oxygen Delivery Method Room Air Room Air BMI result Body Mass Index 42.1 Appearance: Alert. Oriented X3. No acute distress. Head: normocephalic, atraumatic. Eyes: Pupils equal, round and reactive to light. ENT: Pharynx normal. No tonsillar swelling or exudate. Neck: Normal inspection. Neck supple. CVS: Normal heart rate and rhythm. Pulses normal. Respiratory: No respiratory distress. Breath sounds normal. Abdomen: Obese, Soft and nontender. colostomy in place. active+BS x4 Skin: Skin warm and dry. Normal skin color. Normal skin turgor. No rashes. Extremities: No lower extremity edema. No joint swelling. Legs warm and well perfused. bilateral calves are tender to palpation Neuro/psych: Oriented X 3. No motor deficit. No sensory deficit. CN II-XII intact. Normal speech and cognition. Course Course Course Narrative: RME, this is a rapid medical exam performed by Zuhair Ledesma please refer to primary provider for complete H&P- 53-year-old female presents for evaluation of leg pain. She is currently complaining of pain mostly to her right hip that goes all the way down her right leg. She reports that she wants pain for a few weeks on 1 side and then on the other side for a few weeks. She describes the pain as burning and worse with standing. She also complains of back pain. Plan for x-rays of the pelvis, lumbar spine and Doppler of the legs to rule out DVT Medical Decision Making Medical Decision Making MDM Narrative: 53 yo female presenting with bilateral leg pain x2 weeks. No swelling. No chest pain or SOB. Tachycardic 106 on arrival, no hypoxia. LE dopplers ordered from triage and are showing extensive bilateral DVT, occlusive DVT on the right and partially occlusive on the left. Dr. Bob consulted who recommended getting CT abd/pelvis w/ contrast to evaluate extent however unable to given new ALFREDO. Plan for admission, heparin drip for now given GFR 20 and additional imaging once ALFREDO improves. will check UA and urine studies. hold off on renal U/S for now. Patient updated on plan of care. Hospitalist TT for admission. Differential Diagnosis Differential Diagnoses: The differential diagnosis associated with the presentation includes DVT, PAD, peripheral neuropathy 2/2 poorly controlled DM, rhabdomyolysis Admission/Observation Consideration of admission/observation: Escalation of care including admission/observation considered Consult Healthcare Provider Management of the patient was discussed with: Hospitalist and Cafeteria Associate Dr. Bob - initially recommended CT abd/pelvis w/ contrast to further investigate extent of clot however she has an ALFREDO. recommending heparinization and imaging once ALFREDO resolves Lab Data MDM Lab Attestation statement: I reviewed the patient's lab results. new ALFREDO 07/03/24 15:14 07/03/24 15:14 Labs: Lab Results 07/03/24 Range/Units 15:14 WBC 8.1 (4.8-10.8) X10*3/uL RBC 4.75 (4.20-5.50) X10*6/uL Hgb 13.4 (12.0-16.0) g/dl Hct 40.6 (37.0-47.0) % MCV 85.5 (80.0-98.0) fL MCH 28.2 (27.0-33.0) pg MCHC 33.0 (31.0-35.0) g/dl RDW 14.2 (11.0-16.0) % Plt Count 239 D (160-400) X10*3/uL MPV 10.2 (9.4-12.3) fL Immature Gran % (Auto) 1.0 H (0.0-0.4) % Neut % (Auto) 75.6 H (45-73) % Lymph % (Auto) 13.7 L (20-40) % [place] % (Auto) 7.8 (2-11) % Eos % (Auto) 1.5 (0-4) % Baso % (Auto) 0.4 (0-2) % Lymph # (Auto) 1.1 L (1.2-4.9) X10*3/uL [place] # (Auto) 0.6 (0.1-1.2) X10*3/uL Eos # (Auto) 0.1 (0.0-0.4) X10*3/uL Baso # (Auto) 0.0 (0.0-0.2) X10*3/uL Abs Immat Gran (auto) 0.08 H (0.00-0.03) X10*3/uL Absolute Neuts (auto) 6.1 (2.0-8.3) x10*3/uL Absolute Nucleated RBC 0.000 (0.0-0.012) X10*3/uL Nucleated RBC % (auto) 0.0 (0.0-0.2) /100WBC PT 11.6 (10.9-12.4) SEC INR 1.0 (0.9-1.1) Sodium 139 (135-145) mmol/L Potassium 4.5 (3.3-5.1) mmol/L Chloride 105 (96-108) mmol/L Carbon Dioxide 22 (22-29) mmol/L Anion Gap 17 (12-20) BUN 28 H (9-16) mg/dL Creatinine 2.48 H (0.5-1.4) mg/dL Estim Creat Clear Calc 27.1 Estimated GFR 20 Random Glucose 97 (60-115) mg/dL Calcium 9.9 (8.4-10.2) mg/dL Total Bilirubin 0.5 (0.0-1.0) mg/dL AST 27 (5-31) U/L ALT 31 (0-31) U/L Alkaline Phosphatase 92 (39-117) U/L Total Protein 8.1 H (6.5-8.0) g/dL Albumin 3.9 (3.5-5.0) g/dL Independent Interpretation I performed an independent interpretation of an: Ultrasound Interpretation: bilateral acute DVT noted Radiology Impression Discussion of test interpretation with radiology: I have reviewed the radiologist's reading. Radiologist Impression: EXAMINATION: US TRIPLEX LOWER EXTREMITY, BILATERAL CLINICAL INFORMATION: Bilateral lower extremity pain. COMPARISON: None available. TECHNIQUE: Color-flow triplex imaging with spectral analysis and compression Doppler were performed on the bilateral lower extremities. FINDINGS: RIGHT LEG: There is occlusive thrombus throughout the common femoral vein, extending through the superficial vein into the popliteal vein and likely calf veins. LEFT LEG: There is partially occlusive thrombus in the left common femoral vein, extending into the greater saphenous vein, extending into the superficial femoral vein proximally. The mid and distal superficial femoral vein, popliteal vein, and deep calf veins appear patent. US/US venous duplex LE BI IMPRESSION: 1. POSITIVE RIGHT leg deep venous thrombosis, extensive. 2. POSITIVE LEFT leg partially occlusive deep venous thrombosis. There is also thrombosis of the greater saphenous vein on the left. External Record Review External record reviewed: Outpatient record and Prior outpatient labs Tests considered The following testing was considered but not selected: considered CTA chest, CT A/P w/ contrast however unable to perform given ALFREDO considered V/Q however would not change management lead Prescription Management I considered prescription management with: Pain Medication and Other (anticoagulation ) Chronic Conditions Patient?s care impacted by: Diabetes and Other (obesity) Critical Care Time Critical Care Time Critical Care Time: Yes Total Critical Care Time: 36 Attestation: I have personally provided critical care time exclusive of time spent on separately billable procedures. Time includes review of lab data, radiology results, discussion with consultants, and monitoring for potential decompensation. Intervention performed as documented. Discharge Plan Discharge Clinical Impression: ALFREDO (acute kidney injury) Deep vein thrombosis (DVT) of both lower extremities Qualifiers: Affected thrombotic vein of extremity: femoral Chronicity: acute Qualified Code(s): I82.413 - Acute embolism and thrombosis of femoral vein, bilateral Patient Disposition: Admitted As Inpatient Print Language: Setswana
[2024-07-03 15:30] LABS: MANUAL DIFF FLAG NO
[2024-07-03 15:32] LABS: Basophils Percent Auto 0.4 % (0-2); Eosinophils Absolute Auto 0.1 X10*3/uL (0.0-0.4); Eosinophils Percent Auto 1.5 % (0-4); Hematocrit 40.6 % (37.0-47.0); Hemoglobin 13.4 g/dl (12.0-16.0); Imm Gran Abs Auto 0.08 X10*3/uL (0.00-0.03); Lymphocytes Absolute Auto 1.1 X10*3/uL (1.2-4.9); Lymphocytes Percent Auto 13.7 % (20-40); Mean Corpuscular Hemoglobin 28.2 pg (27.0-33.0); Mean Corpuscular Volume 85.5 fL (80.0-98.0); Mean Platelet Volume 10.2 fL (9.4-12.3); Monocytes Absolute Auto 0.6 X10*3/uL (0.1-1.2); Monocytes Percent Auto 7.8 % (2-11); Neutrophils Absolute Auto 6.1 x10*3/uL (2.0-8.3); Neutrophils Percent Auto 75.6 % (45-73); Platelet Count 239 X10*3/uL (160-400); Red Blood Count 4.75 X10*6/uL (4.20-5.50); Red Cell Distribution Width 14.2 % (11.0-16.0); White Blood Count 8.1 X10*3/uL (4.8-10.8)
[2024-07-03 15:37] LABS: Prothrombin Time 11.6 SEC (10.9-12.4)
[2024-07-03 15:51] LABS: Alanine Aminotransferase 31 U/L (0-31); Albumin Level 3.9 g/dL (3.5-5.0); Anion Gap 17 (12-20); Aspartate Amino Transferase 27 U/L (5-31); Bilirubin Total 0.5 mg/dL (0.0-1.0); Blood Urea Nitrogen 28 mg/dL (9-16); Calcium 9.9 mg/dL (8.4-10.2); Carbon Dioxide 22 mmol/L (22-29); Chloride 105 mmol/L (96-108); Creatinine Clr Calc Pharmacy 27.1; Estimated Glomerular Filt Rate 20; Glucose Random 97 mg/dL (60-115); Potassium 4.5 mmol/L (3.3-5.1); Sodium 139 mmol/L (135-145); Total Protein 8.1 g/dL (6.5-8.0)
[2024-07-03 15:57] LABS: Alkaline Phosphatase 92 U/L (39-117)
[2024-07-03 17:32] VITALS: BMI 42.1
[2024-07-03 17:35] VITALS: BP 179/65; PULSE 80; RESP 16; TEMP 36.8; O2SAT 98
--- NOTE | 2024-07-03 17:51 | PM.IMHP ---
History of Present Illness Date of Service: 07/03/24 Attending physician on admission: Murray Rangel Chief Complaint: Leg pain Pt is a 53-year-old female with a PMH significant for?insulin-dependent type 2 diabetes, HTN, HLD, hx of perforated diverticulitis s/p colostomy in 2017, cluster B personality disorder, anxiety, and depression who presents to the ED for evaluation of worsening bilateral leg pain x2 weeks. Pt reports has been experiencing intermittent leg pain for the past few months, usually presenting unilaterally and alternating between left and right leg. Pt reports had difficulty walking and sleeping due to the pain and discomfort. Has chronic numbness and tingling in extremities around baseline. Some nausea but no vomiting. Reports had liquid stool in ostomy bag for a day or 2 last week, and again this week on Saturday and Saturday. Reports has been eating and drinking normally. Denies polyuria, dysuria, or anuria. Pt reports significant hx of depression and states has been sedentary for the past 1-2 years. Pt lives alone and has states does not like to leave the house and instead spends a great deal of time on her couch watching TV. Pt was ?forced? by her family to seek evaluation today at the ED. denies fever, chills, nausea, vomiting, abdominal pain. No chest pain/pressure, palpitations. Denies shortness or breath or difficulty breathing. Chronic CABRERA at baseline. In the ED pt was tachycardic up to 106 and hypertensive up to 179/65. Labs were significant for BUN 28 and creatinine 2.48 (elevated from 1.00 on 12/04/2022). No leukocytosis. Stable H&H. No significant electrolyte abnormalities. Venous duplex ultrasound positive for extensive occlusive DVT of right leg, and positive for partially occlusive DVT of left leg. ED contacted vascular surgery who recommend CTA of abdomen and pelvis for better visualization of DVT, but was unable to obtain due to ALFREDO. Pt was treated with IVF and started on a heparin drip. Pt will be admitted to the hospital for treatment and further evaluation of acute bilateral DVTs as well as ALFREDO. Review of Systems Review of Systems: Negative except for that which is stated in the [facility] Medical History History of herpes genitalis GERD (gastroesophageal reflux disease) Anxiety and depression HTN (hypertension) Elevated cholesterol Left sided abdominal pain Boils of multiple sites COVID-[address] Diverticular disease Diabetes mellitus Depression Morbid obesity Family History Mother Stroke Cardiac arrest Father Cardiac arrest Diabetes Brother Diabetes Surgical History Hx of colonoscopy Hx of section History of colon resection Social History Household Members Other:: Sister Are you a primary childcare provider to a significant other at home: No Do you presently have visiting nurse or other home services: No Alcohol intake: current Alcohol intake frequency: does not drink Patient Tobacco Use Status: Current someday Tobacco user Tobacco use type: Cigarette Cigarettes Per Day: 0 Years Smoked: 25 Second Hand Smoke Exposure: Yes (boyfriend) Advance Directives: No Advance Directives Information Provided: No Advance Directives Date on File: 07/23/16 Meds Allergies Allergy/AdvReac Type Severity Reaction Status Date / Time stoma pace Allergy Unknown severe Uncoded 07/03/24 11:45 rash/Itch Active Medications: Current Medications Heparin Sodium (Porcine) (Heparin Sodium,Porcine 5,000 Unit/Ml Vial) 3,900 unit 40 unit/kg (3900 unit) IVPUSH PROTOCOL BOLUS PRN; Protocol PRN Reason: 40 unit/kg - Heparin Protocol Heparin Sodium (Porcine) (Heparin Sodium,Porcine 5,000 Unit/Ml Vial) 7,800 unit 80 unit/kg (7800 unit) IVPUSH PROTOCOL BOLUS PRN; Protocol PRN Reason: 80 unit/kg - Heparin Protocol Sodium Chloride (Ns) 1,000 mls @ 999 mls/hr IV .Q1H1M ELSA Stop: 07/03/24 18:00 Heparin Sodium/Sodium Chloride (Heparin Sodium,Porcine/1/2ns) 25,000 unit in 250 mls @ 0 mls/hr IVCONT .Q0M ELSA; Protocol Home Medications ?Medication ?Instructions ?Recorded ?Confirmed ?Last Taken ?Type atorvastatin 10 mg tablet 10 mg PO DAILY 04/06/20 04/08/23 Unknown History colostomy bags #5 ea 04/06/20 04/08/23 Unknown History lisinopril 20 mg tablet 20 mg PO DAILY 04/06/20 04/08/23 Unknown History trazodone 50 mg tablet 50 mg PO BEDTIME PRN Sleep 04/06/20 04/08/23 Unknown History buspirone 5 mg tablet 5 mg PO BID 08/15/22 04/08/23 Unknown History clonidine HCl 0.1 mg tablet 0.1 mg PO BID 08/15/22 04/08/23 Unknown History dulaglutide 1.5 mg/0.5 mL 1.5 mg subcut QWEEK 07/03/24 Unknown History subcutaneous pen injector (Trulicity) empagliflozin 10 mg tablet 10 mg PO DAILY 07/03/24 Unknown History (Jardiance) insulin glargine 100 unit/mL 60 unit subcut BID 07/03/24 07/03/24 07/03/24 History subcutaneous solution (Lantus U-100 Insulin) insulin lispro 100 unit/mL See Protocol subcut TIDAC 07/03/24 Unknown History subcutaneous pen metformin 500 mg tablet 500 mg PO BID 07/03/24 07/03/24 Unknown History Physical Exam Vital Signs and Narrative: Vital Signs: Last Vital Signs Temp 98.2 F 07/03/24 17:35 Pulse 80 07/03/24 17:35 Resp 16 07/03/24 17:35 BP 179/65 H 07/03/24 17:35 Pulse Ox 98 07/03/24 17:35 O2 Del Method Room Air 07/03/24 17:35 BMI result Body Mass Index 42.1 General: AOx3, no acute distress Resp: CTA bilaterally CVS: S1, S2, RRR GI: +BS, NT, no distention, colostomy in place with soft brown discharge Skin: Warm, dry Neuro: Cranial nerves II-XII grossly intact bilaterally. Motor grossly intact bilaterally Extremities: No edema. Right leg diffusely tender to the touch Psych: Appropriate affect Results Labs 07/03/24 15:14 07/03/24 15:14 Labs: Laboratory Results - last 24 hr 07/03/24 15:14 MCV 85.5 MCH 28.2 MCHC 33.0 RDW 14.2 Plt Count 239 D MPV 10.2 Immature Gran % (Auto) 1.0 H Neut % (Auto) 75.6 H Lymph % (Auto) 13.7 L [place] % (Auto) 7.8 Eos % (Auto) 1.5 Baso % (Auto) 0.4 Lymph # (Auto) 1.1 L [place] # (Auto) 0.6 Eos # (Auto) 0.1 Baso # (Auto) 0.0 Abs Immat Gran (auto) 0.08 H Absolute Neuts (auto) 6.1 Absolute Nucleated RBC 0.000 Nucleated RBC % (auto) 0.0 PT 11.6 INR 1.0 Anion Gap 17 Estim Creat Clear Calc 27.1 Estimated GFR 20 Random Glucose 97 Calcium 9.9 Total Bilirubin 0.5 AST 27 ALT 31 Alkaline Phosphatase 92 Total Protein 8.1 H Albumin 3.9 Imaging Radiologist's Impressions: Impressions Pelvis X-Ray 07/03/24 11:45 IMPRESSION: No acute findings of the pelvis. Electronically signed by: Roberto Oneil MD 07/03/2024 12:28 PM EST RP Lumbar Spine X-Ray 07/03/24 12:05 IMPRESSION: Degenerative changes of the lumbar spine as described. Electronically signed by: Godwin Mohamud MD 07/03/2024 12:29 PM EST RP Venous Duplex 07/03/24 14:04 IMPRESSION: 1. POSITIVE RIGHT leg deep venous thrombosis, extensive. 2. POSITIVE LEFT leg partially occlusive deep venous thrombosis. There is also thrombosis of the greater saphenous vein on the left. Recovery Collector notified Suleiman Ledesma PA-C of these results at the time of the termination of the examination. Electronically signed by: Roberto Oneil MD 07/03/2024 02:57 PM EST RP Assessment and Plan (1) ALFREDO (acute kidney injury): Status: Acute (2) Deep vein thrombosis (DVT) of both lower extremities: Qualifiers: Affected thrombotic vein of extremity: femoral Chronicity: acute Qualified Code(s): I82.413 - Acute embolism and thrombosis of femoral vein, bilateral Status: Acute Plan Pt is a 53-year-old female with a PMH significant for?insulin-dependent type 2 diabetes, HTN, HLD, hx of perforated diverticulitis s/p colostomy in 2017, cluster B personality disorder, anxiety, and depression who presents to the ED for evaluation of worsening bilateral leg pain x2 weeks. Pt will be admitted to the hospital for treatment and further evaluation of acute bilateral DVTs as well as ALFREDO. Bilateral DVTs Pt with intermittent bilateral leg pain for past few months, worse x2 weeks Venous duplex positive for extensive occlusive right DVT, and partially occlusive left DVT Unclear etiology: possible secondary to sedentary lifestyle Will check dry CT of abd/pelvis to r/o malignancy CTA of abd/pelvis and chest once ALFREDO resolved Pt placed on heparin drip in the ED, continue Vascular surgery consult Follow CBC ALFREDO Creatinine 2.48 Elevated from 1.00 on 12/04/2022; creatinine was WNL on 12/13/2023 at [facility] [place] though showed microalbuminuria Unclear etiology: Reports a few episodes of diarrhea this week and last, otherwise eating and drinking normally without N/V Had new pt renal appointment for today which she canceled Pt received IVF in the ED Will place on maintenance fluids Hold metformin, lisinopril Check dry CT of abdomen/pelvis to rule out ureteral obstruction Follow creatinine Insulin-dependent type [address] on sliding scale insulin Continue Lantus, Jardiance Hold metformin Diabetic diet Anxiety/depression Continue buspirone, clonidine sertraline Full Code Attending:?Dr. Rangel DVT Prophylaxis: On heparin drip Pt will require a hospitalization of at least two nights for treatment of?bilateral occlusive DVTs and ALFREDO requiring heparin drip, IVF close monitoring of labs, as well as specialist consultation with vascular surgery for surgical intervention. Quality Stroke Does the patient have a stroke diagnosis?: No VTE Prior VTE?: No VTE Risk Level:: Medical - moderate - high VTE Device Contraindication: Treatment Not Indicated VTE Drug Contraindication: N/A - Med Ordered
[2024-07-03] MEDS: 0.9 % Sodium Chloride 1,000 ML 999 ML IV (18:23)
[2024-07-03 18:53] LABS: PTT Heparin Drip 29.4 SEC (53-77.9)
[2024-07-03] MEDS: Heparin Sodium,Porcine/1/2NS 25,000 UNIT/250 ML IV.SOLN 13.71 UNIT IVCONT (19:05)
--- NOTE | 2024-07-03 19:15 | PHA.MEDREC ---
Addendum entered by Lisette Roldan RPh 07/03/24 19:31: reviewed by [facility]. Original Note: Pharmacy Consult ? Medication Reconciliation Pharmacy has completed the medication reconciliation. Spoke with patient and she confirmed her medications. Patient states she has not been compliant with taking her medications and states she is only taking her Metformin 500mg tab twice a day, she states also the Lantus Solostar stating she does it when she remembers to test her sugars and she claims she did 60 units this morning and also the Humalog Kwik Pen per a sliding scale when she remembers to do it. She confirmed she took the Metformin, Lantus and Humalog KwikPen this morning and everything else has been a few months .
--- NOTE | 2024-07-03 19:18 | PC.NURSE ---
this rn assumed care of pt, pt a&ox4, respirations even and unlabored, vss. heparin drip initiated at this time, tolerating well.
[2024-07-03] MEDS: Lactated Ringers 1,000 ML 100 ML IVCONT (19:47)
[2024-07-03 21:03] LABS: Glucose, Whole Blood 175 mg/dL (60-115)
[2024-07-03 21:05] VITALS: BP 175/68
[2024-07-03] MEDS: busPIRone HCl 5 MG TABLET PO (21:05)
[2024-07-03] MEDS: cloNIDine HCL 0.1 MG TABLET PO (21:05)
[2024-07-03] MEDS: traZODone HCL 50 MG TABLET PO (21:06)
[2024-07-03] MEDS: Insulin Glargine,Hum.rec.anlog 100 UNIT/ML 10 ML VIAL 42 UNIT SUBCUT (21:06)
[2024-07-03] MEDS: Insulin Lispro 100 UNIT/ML 3 ML VIAL SUBCUT (21:06)
[2024-07-03 21:10] VITALS: BP 161/73; PULSE 92; RESP 16; TEMP 36.8; O2SAT 99
--- NOTE | 2024-07-03 21:11 | PC.NURSE ---
pt medicated per mar, tolerated well with water.
[2024-07-04] MEDS: Melatonin 3 MG TABLET 6 MG PO ×2 (00:06→20:27)
[2024-07-04] MEDS: 0.9 % Sodium Chloride Flush 3 ML SYRINGE IVFLUSH (00:07)
[2024-07-04 01:26] LABS: PTT Heparin Drip 48.4 SEC (53-77.9)
[2024-07-04] MEDS: Heparin Sodium,Porcine 5,000 UNIT/ML VIAL 3900 UNIT IVPUSH ×2 (01:50→17:27)
[2024-07-04] MEDS: Lactated Ringers 1,000 ML 100 ML IVCONT ×2 (05:49→14:51)
[2024-07-04 05:51] VITALS: BP 128/78; PULSE 75; RESP 17; TEMP 37; O2SAT 100
[2024-07-04 06:38] LABS: Hematocrit 36.7 % (37.0-47.0); Mean Corpuscular HGB Conc 32.7 g/dl (31.0-35.0); Mean Corpuscular Hemoglobin 28.2 pg (27.0-33.0); Mean Corpuscular Volume 86.2 fL (80.0-98.0); Mean Platelet Volume 10.5 fL (9.4-12.3); Platelet Count 209 X10*3/uL (160-400); Red Blood Count 4.26 X10*6/uL (4.20-5.50); Red Cell Distribution Width 14.1 % (11.0-16.0); White Blood Count 6.4 X10*3/uL (4.8-10.8)
[2024-07-04 06:53] LABS: Anion Gap 14 (12-20); Blood Urea Nitrogen 22 mg/dL (9-16); Calcium 9.1 mg/dL (8.4-10.2); Carbon Dioxide 22 mmol/L (22-29); Chloride 106 mmol/L (96-108); Creatinine Clr Calc Pharmacy 33.3; Estimated Glomerular Filt Rate 25; Glucose Random 137 mg/dL (60-115); Potassium 4.4 mmol/L (3.3-5.1); Sodium 138 mmol/L (135-145)
[2024-07-04 07:15] LABS: Glucose, Whole Blood 131 mg/dL (60-115)
[2024-07-04 09:14] LABS: PTT Heparin Drip 103.5 SEC (53-77.9)
--- NOTE | 2024-07-04 09:36 | HO.PM.IMPN ---
Subjective Subjective Date of Service: 07/04/24 Interval History: Leg pain otherwise feeling okay Physical Exam Vital Signs: Vital Signs: Last Vital Signs Temp 98.6 F 07/04/24 05:51 Pulse 75 07/04/24 05:51 Resp 17 07/04/24 05:51 BP 128/78 07/04/24 05:51 Pulse Ox 100 07/04/24 05:51 O2 Del Method Room Air 07/04/24 05:51 BMI result Body Mass Index 42.1 General: AO X 3, no acute distress Resp: CTA bilateral, no accessory muscles used CVS: S1,S2,RRR GI: soft, non tender, non distended Neuro: motor grossly intact, alert Psych: appropriate affect, appropriate insight Bilateral lower extremity edema Objective Data Active Medications Acetaminophen (Acetaminophen 325 Mg Tablet) 650 mg PO Q6H PRN PRN Reason: Pain, Mild 1-3,fever,headache Buspirone HCl (Buspirone Hcl 5 Mg Tablet) 5 mg PO BID [facility] Last Admin: 07/03/24 21:05 Dose: 5 mg Documented By: TANIYA Calcium Carbonate (Calcium Carbonate 750 Mg Tab.Chew) 750 mg PO Q4H PRN PRN Reason: Heartburn Clonidine HCl (Clonidine Hcl 0.1 Mg Tablet) 0.1 mg PO BID [facility]; Protocol Last Admin: 07/03/24 21:05 Dose: 0.1 mg Documented By: TANIYA Dextrose (Dextrose 50 % 25 Gm/50 Ml Syringe) 25 gm IVPUSH Q15M PRN; Protocol PRN Reason: per Hypoglycemia Standing Ord. Empagliflozin (Empagliflozin 10 Mg Tablet) 10 mg PO DAILY [facility] Glucose (Glucose Gel 15 Gm Gel..Gram.) 15 gm PO Q15M PRN; Protocol PRN Reason: per Hypoglycemia Standing Ord. Heparin Sodium (Porcine) (Heparin Sodium,Porcine 5,000 Unit/Ml Vial) 3,900 unit 40 unit/kg (3900 unit) IVPUSH PROTOCOL BOLUS PRN; Protocol PRN Reason: 40 unit/kg - Heparin Protocol Last Admin: 07/04/24 01:50 Dose: 3,900 unit Documented By: TANIYA Heparin Sodium (Porcine) (Heparin Sodium,Porcine 5,000 Unit/Ml Vial) 7,800 unit 80 unit/kg (7800 unit) IVPUSH PROTOCOL BOLUS PRN; Protocol PRN Reason: 80 unit/kg - Heparin Protocol Heparin Sodium/Sodium Chloride (Heparin Sodium,Porcine/1/2ns) 25,000 unit in 250 mls @ 0 mls/hr IVCONT .Q0M [facility]; Protocol Last Titration: 07/04/24 01:50 Dose: 16 units/kg/hr, 15.66 mls/hr Documented By: TANIYA Co-signed By: JAMIA Lactated Ringer's (Lr) 1,000 mls @ 100 mls/hr IVCONT .Q10H [facility] Last Admin: 07/04/24 05:49 Dose: 100 mls/hr Documented By: TANIYA Insulin Glargine (Insulin Glargine,Hum.Rec.Anlog 100 Unit/Ml 10 Ml Vial) 42 unit SUBCUT BEDTIME [facility] Last Admin: 07/03/24 21:06 Dose: 42 unit Documented By: TANIYA Insulin Glargine (Insulin Glargine,Hum.Rec.Anlog 100 Unit/Ml 10 Ml Vial) 42 unit SUBCUT DAILY [facility] Insulin Human Lispro (Insulin Lispro 100 Unit/Ml 3 Ml Vial) 0 unit SUBCUT QIDACHS [facility]; Protocol Last Admin: 07/04/24 07:23 Dose: Not Given Documented By: BELKYS Non-Admin Reason: No Insulin Coverage Magnesium Hydroxide (Milk Of Magnesia 30 Ml Oral.Susp) 30 ml PO DAILY PRN PRN Reason: Constipation Melatonin (Melatonin 3 Mg Tablet) 6 mg PO BEDTIME PRN PRN Reason: Insomnia Last Admin: 07/04/24 00:06 Dose: 6 mg Documented By: TANIYA Morphine Sulfate (Morphine Sulfate 4 Mg/Ml Cartridge) 2 mg IVPUSH Q4H PRN; Protocol PRN Reason: Pain, Severe (Pain Scale 7-10) Oxycodone HCl (Oxycodone Hcl Immed Release 5 Mg Tablet) 5 mg PO Q6H PRN PRN Reason: Pain, Moderate(Pain Scale 4-6) Sodium Chloride (0.9 % Sodium Chloride Flush 3 Ml Syringe) 3 ml IVFLUSH QSHIFT [facility] Last Admin: 07/04/24 09:18 Dose: Not Given Documented By: BELKYS Non-Admin Reason: IV Running Trazodone HCl (Trazodone Hcl 50 Mg Tablet) 50 mg PO BEDTIME PRN PRN Reason: Sleep Last Admin: 07/03/24 21:06 Dose: 50 mg Documented By: TANIYA Labs 07/04/24 05:38 07/04/24 05:38 Labs: Laboratory Results - last 24 hr 07/03/24 07/03/24 07/03/24 15:14 18:37 20:53 MCV 85.5 MCH 28.2 MCHC 33.0 RDW 14.2 Plt Count 239 D MPV 10.2 Immature Gran % (Auto) 1.0 H Neut % (Auto) 75.6 H Lymph % (Auto) 13.7 L [place] % (Auto) 7.8 Eos % (Auto) 1.5 Baso % (Auto) 0.4 Lymph # (Auto) 1.1 L [place] # (Auto) 0.6 Eos # (Auto) 0.1 Baso # (Auto) 0.0 Abs Immat Gran (auto) 0.08 H Absolute Neuts (auto) 6.1 Absolute Nucleated RBC 0.000 Nucleated RBC % (auto) 0.0 PT 11.6 INR 1.0 aPTT Heparin Protocol 29.4 L Anion Gap 17 Estim Creat Clear Calc 27.1 Estimated GFR 20 POC Glucose 175 H Random Glucose 97 Calcium 9.9 Total Bilirubin 0.5 AST 27 ALT 31 Alkaline Phosphatase 92 Total Protein 8.1 H Albumin 3.9 07/04/24 07/04/24 07/04/24 01:06 05:38 07:10 MCV 86.2 MCH 28.2 MCHC 32.7 RDW 14.1 Plt Count 209 MPV 10.5 Immature Gran % (Auto) Neut % (Auto) Lymph % (Auto) [place] % (Auto) Eos % (Auto) Baso % (Auto) Lymph # (Auto) [place] # (Auto) Eos # (Auto) Baso # (Auto) Abs Immat Gran (auto) Absolute Neuts (auto) Absolute Nucleated RBC 0.000 Nucleated RBC % (auto) 0.0 PT INR aPTT Heparin Protocol 48.4 L D Anion Gap 14 Estim Creat Clear Calc 33.3 Estimated GFR 25 POC Glucose 131 H Random Glucose 137 H Calcium 9.1 D Total Bilirubin AST ALT Alkaline Phosphatase Total Protein Albumin 07/04/24 08:57 MCV MCH MCHC RDW Plt Count MPV Immature Gran % (Auto) Neut % (Auto) Lymph % (Auto) [place] % (Auto) Eos % (Auto) Baso % (Auto) Lymph # (Auto) [place] # (Auto) Eos # (Auto) Baso # (Auto) Abs Immat Gran (auto) Absolute Neuts (auto) Absolute Nucleated RBC Nucleated RBC % (auto) PT INR aPTT Heparin Protocol 103.5 H D Anion Gap Estim Creat Clear Calc Estimated GFR POC Glucose Random Glucose Calcium Total Bilirubin AST ALT Alkaline Phosphatase Total Protein Albumin Assessment and Plan (1) Deep vein thrombosis (DVT) of both lower extremities: Status: Acute Plan 53F PMH morbid obesity, diabetes, hypertension, hyperlipidemia, history of perforated diverticulitis status post colostomy in 2017, cluster B personality disorder, depression and anxiety presented with bilateral leg pain and swelling found to have acute bilateral DVTs and acute kidney injury. Acute Bilateral DVTs Likely provoked from sedentary lifestyle Continue IV heparin, follow up vascular surgery Once renal function improved will consider for thrombectomy Acute kidney injury Possibly hypovolemic, continue IV fluids, hold metformin and lisinopril So far improving No signs of hydronephrosis on CT scan Diabetes Continue basal bolus insulin Depression and anxiety Continue buspirone, clonidine, sertraline Full code reason for continued hospitalization: IV fluids for ALFREDO, IV heparin for DVT Quality Stroke Does the patient have a stroke diagnosis?: No VTE Prior VTE?: No VTE Risk Level:: Medical - moderate - high VTE Device Contraindication: Treatment Not Indicated VTE Drug Contraindication: N/A - Med Ordered
--- NOTE | 2024-07-04 10:07 | PC.NURSE ---
heparin paused per protocol for 1 hour, plan for next ptthd at 1645. ambulates to the bathroom independently.
--- NOTE | 2024-07-04 10:21 | MHC.CM.PN ---
CM MET WITH PT AT BEDSIDE IN ED. PT LIVES WITH FAMILY AND IS FUNCTIONALLY INDEPENDENT. NO DME/SVCES. PT DECLINES COMPLETING A HCP AT THIS TIME BUT WILL CONTACT CM SHOULD SHE CHANGE HER MIND. PCP [address] [facility]. DP: HOME, NO SERVICES IS THE GOAL. PT HAS OWN RIDE HOME. CM WILL CONTINUE TO FOLLOW FOR ANY CHANGE TO DC PLAN/NEEDS.
[2024-07-04] MEDS: Empagliflozin 10 MG TABLET PO (10:23)
[2024-07-04] MEDS: cloNIDine HCL 0.1 MG TABLET PO ×2 (10:23→20:28)
[2024-07-04] MEDS: Insulin Glargine,Hum.rec.anlog 100 UNIT/ML 10 ML VIAL 42 UNIT SUBCUT ×2 (10:24→20:28)
[2024-07-04] MEDS: busPIRone HCl 5 MG TABLET PO ×2 (10:24→20:28)
[2024-07-04 13:41] VITALS: BMI 43.0
[2024-07-04 13:47] VITALS: BP 150/92; PULSE 69; RESP 20; TEMP 36.2; O2SAT 100
[2024-07-04 13:54] LABS: Glucose, Whole Blood 178 mg/dL (60-115)
[2024-07-04] MEDS: Heparin Sodium,Porcine/1/2NS 25,000 UNIT/250 ML IV.SOLN 12.73 UNIT IVCONT (14:01)
[2024-07-04] MEDS: Insulin Lispro 100 UNIT/ML 3 ML VIAL SUBCUT ×3 (14:04→20:28)
[2024-07-04 15:43] VITALS: BP 141/86; PULSE 71; RESP 18; TEMP 36.6; O2SAT 100
[2024-07-04 16:40] LABS: Glucose, Whole Blood 193 mg/dL (60-115)
[2024-07-04 17:11] LABS: PTT Heparin Drip 51.5 SEC (53-77.9)
[2024-07-04] MEDS: oxyCODONE HCl Immed Release 5 MG TABLET PO (17:44)
[2024-07-04 18:53] LABS: Appearance Urine Clear; Color Urine Yellow; Glucose Urine UA >=1000 mg/dL (Negative); Leukocyte Esterase Urine Negative (Negative); Nitrite Urine Negative (Negative); PH 7.5 (5.0-9.0); Specific Gravity - Urine 1.015 (1.005-1.025); UMIC TRIGGER UACC YES; Urine Blood Negative (Negative); Urine Ketones Negative (Negative); Urine Protein Trace mg/dL (Neg-Trace)
[2024-07-04 18:58] LABS: Bacteria Urine None Seen (None Seen); Hyaline Casts Urine 0-2 /LPF (0-2); RBC Urine 0-2 /HPF (0-2); Squamous Epithelial Cell Urine 0-2 /HPF (0-2); UACC Culture Trigger YES
[2024-07-04 19:09] LABS: Creatinine Urine 33.86 mg/dL; Osmolality Urine 439 mosm/kg (373-1093)
[2024-07-04 19:45] VITALS: BP 121/78; PULSE 74; RESP 18; TEMP 36.1; O2SAT 97
[2024-07-04 20:18] LABS: Glucose, Whole Blood 248 mg/dL (60-115)
[2024-07-04] MEDS: traZODone HCL 50 MG TABLET PO (20:28)
[2024-07-05] VITALS (8 sets, daily range): BP systolic 109–152; BP diastolic 65–85; PULSE 63–80; RESP 18–20; TEMP 36.1–36.8; O2SAT 97–98
[2024-07-05 00:23] LABS: PTT Heparin Drip 75.2 SEC (53-77.9)
[2024-07-05] MEDS: Lactated Ringers 1,000 ML 100 ML IVCONT ×3 (00:43→18:18)
[2024-07-05] MEDS: Heparin Sodium,Porcine/1/2NS 25,000 UNIT/250 ML IV.SOLN 14.69 UNIT IVCONT ×2 (05:53→21:10)
[2024-07-05 06:03] LABS: Hematocrit 34.5 % (37.0-47.0); Hemoglobin 11.4 g/dl (12.0-16.0); Mean Corpuscular Hemoglobin 28.6 pg (27.0-33.0); Mean Corpuscular Volume 86.5 fL (80.0-98.0); Mean Platelet Volume 10.2 fL (9.4-12.3); Platelet Count 200 X10*3/uL (160-400); Red Blood Count 3.99 X10*6/uL (4.20-5.50); Red Cell Distribution Width 13.9 % (11.0-16.0); White Blood Count 4.8 X10*3/uL (4.8-10.8)
[2024-07-05 06:06] LABS: PTT Heparin Drip 70.8 SEC (53-77.9)
[2024-07-05 06:15] LABS: Anion Gap 14 (12-20); Blood Urea Nitrogen 24 mg/dL (9-16); Carbon Dioxide 23 mmol/L (22-29); Chloride 106 mmol/L (96-108); Creatinine Clr Calc Pharmacy 34.2; Estimated Glomerular Filt Rate 26; Glucose Random 275 mg/dL (60-115); Potassium 4.9 mmol/L (3.3-5.1); Sodium 138 mmol/L (135-145)
[2024-07-05 07:35] LABS: Glucose, Whole Blood 237 mg/dL (60-115)
[2024-07-05] MEDS: busPIRone HCl 5 MG TABLET PO ×2 (09:29→21:15)
[2024-07-05] MEDS: cloNIDine HCL 0.1 MG TABLET PO ×2 (09:29→21:14)
[2024-07-05] MEDS: Empagliflozin 10 MG TABLET PO (09:29)
[2024-07-05] MEDS: Insulin Lispro 100 UNIT/ML 3 ML VIAL SUBCUT ×4 (09:29→21:14)
[2024-07-05] MEDS: 0.9 % Sodium Chloride Flush 3 ML SYRINGE IVFLUSH ×2 (09:30→21:15)
[2024-07-05] MEDS: Insulin Glargine,Hum.rec.anlog 100 UNIT/ML 10 ML VIAL 42 UNIT SUBCUT ×2 (09:30→21:14)
--- NOTE | 2024-07-05 10:26 | HO.PM.IMPN ---
Subjective Subjective Date of Service: 07/05/24 Interval History: Leg pain otherwise feeling okay Physical Exam Vital Signs: Vital Signs: Last Vital Signs Temp 97.0 F 07/05/24 07:55 Pulse 69 07/05/24 07:55 Resp 20 07/05/24 07:55 BP 152/85 H 07/05/24 07:55 Pulse Ox 98 07/05/24 07:55 O2 Del Method Room Air 07/05/24 07:55 BMI result Body Mass Index 43.0 General: AO X 3, no acute distress Resp: CTA bilateral, no accessory muscles used CVS: S1,S2,RRR GI: soft, non tender, non distended Neuro: motor grossly intact, alert Psych: appropriate affect, appropriate insight Bilateral lower extremity edema Objective Data Active Medications Acetaminophen (Acetaminophen 325 Mg Tablet) 650 mg PO Q6H PRN PRN Reason: Pain, Mild 1-3,fever,headache Buspirone HCl (Buspirone Hcl 5 Mg Tablet) 5 mg PO BID [facility] Last Admin: 07/05/24 09:29 Dose: 5 mg Documented By: SULMA Calcium Carbonate (Calcium Carbonate 750 Mg Tab.Chew) 750 mg PO Q4H PRN PRN Reason: Heartburn Clonidine HCl (Clonidine Hcl 0.1 Mg Tablet) 0.1 mg PO BID [facility]; Protocol Last Admin: 07/05/24 09:29 Dose: 0.1 mg Documented By: SULMA Dextrose (Dextrose 50 % 25 Gm/50 Ml Syringe) 25 gm IVPUSH Q15M PRN; Protocol PRN Reason: per Hypoglycemia Standing Ord. Empagliflozin (Empagliflozin 10 Mg Tablet) 10 mg PO DAILY [facility] Last Admin: 07/05/24 09:29 Dose: 10 mg Documented By: SULMA Glucose (Glucose Gel 15 Gm Gel..Gram.) 15 gm PO Q15M PRN; Protocol PRN Reason: per Hypoglycemia Standing Ord. Heparin Sodium (Porcine) (Heparin Sodium,Porcine 5,000 Unit/Ml Vial) 3,900 unit 40 unit/kg (3900 unit) IVPUSH PROTOCOL BOLUS PRN; Protocol PRN Reason: 40 unit/kg - Heparin Protocol Last Admin: 07/04/24 17:27 Dose: 3,900 unit Documented By: SULMA Heparin Sodium (Porcine) (Heparin Sodium,Porcine 5,000 Unit/Ml Vial) 7,800 unit 80 unit/kg (7800 unit) IVPUSH PROTOCOL BOLUS PRN; Protocol PRN Reason: 80 unit/kg - Heparin Protocol Heparin Sodium/Sodium Chloride (Heparin Sodium,Porcine/1/2ns) 25,000 unit in 250 mls @ 0 mls/hr IVCONT .Q0M [facility]; Protocol Last Titration: 07/05/24 06:09 Dose: 15 units/kg/hr, 14.69 mls/hr Documented By: MARTI Co-signed By: GIANCARLO Lactated Ringer's (Lr) 1,000 mls @ 100 mls/hr IVCONT .Q10H [facility] Last Admin: 07/05/24 09:29 Dose: 100 mls/hr Documented By: SULMA Insulin Glargine (Insulin Glargine,Hum.Rec.Anlog 100 Unit/Ml 10 Ml Vial) 42 unit SUBCUT BEDTIME [facility] Last Admin: 07/04/24 20:28 Dose: 42 unit Documented By: MARTI Insulin Glargine (Insulin Glargine,Hum.Rec.Anlog 100 Unit/Ml 10 Ml Vial) 42 unit SUBCUT DAILY [facility] Last Admin: 07/05/24 09:30 Dose: 42 unit Documented By: SULMA Insulin Human Lispro (Insulin Lispro 100 Unit/Ml 3 Ml Vial) 0 unit SUBCUT QIDACHS [facility]; Protocol Last Admin: 07/05/24 09:29 Dose: 4 unit Documented By: SULMA Magnesium Hydroxide (Milk Of Magnesia 30 Ml Oral.Susp) 30 ml PO DAILY PRN PRN Reason: Constipation Melatonin (Melatonin 3 Mg Tablet) 6 mg PO BEDTIME PRN PRN Reason: Insomnia Last Admin: 07/04/24 20:27 Dose: 6 mg Documented By: MARTI Morphine Sulfate (Morphine Sulfate 4 Mg/Ml Cartridge) 2 mg IVPUSH Q4H PRN; Protocol PRN Reason: Pain, Severe (Pain Scale 7-10) Oxycodone HCl (Oxycodone Hcl Immed Release 5 Mg Tablet) 5 mg PO Q6H PRN PRN Reason: Pain, Moderate(Pain Scale 4-6) Last Admin: 07/04/24 17:44 Dose: 5 mg Documented By: SULMA Sodium Chloride (0.9 % Sodium Chloride Flush 3 Ml Syringe) 3 ml IVFLUSH QSHIFT [facility] Last Admin: 07/05/24 09:30 Dose: 3 ml Documented By: SULMA Trazodone HCl (Trazodone Hcl 50 Mg Tablet) 50 mg PO BEDTIME PRN PRN Reason: Sleep Last Admin: 07/04/24 20:28 Dose: 50 mg Documented By: MARTI Zolpidem Tartrate (Zolpidem Tartrate 5 Mg Tablet) 5 mg PO BEDTIME PRN PRN Reason: Insomnia Labs 07/05/24 05:45 07/05/24 05:45 Labs: Laboratory Results - last 24 hr 07/04/24 07/04/24 07/04/24 13:39 16:23 16:52 MCV MCH MCHC RDW Plt Count MPV Absolute Nucleated RBC Nucleated RBC % (auto) aPTT Heparin Protocol 51.5 L D Anion Gap Estim Creat Clear Calc Estimated GFR POC Glucose 178 H 193 H Random Glucose Calcium Urine Color Urine Appearance Urine pH Ur Specific [place] Urine Protein Urine Glucose (UA) Urine Ketones Urine Blood Urine Nitrite Ur Leukocyte Esterase Urine RBC Urine WBC Ur Squamous Epith Cells Urine Bacteria Hyaline Casts Urine Osmolality Ur Random Sodium Urine Creatinine 07/04/24 07/04/24 07/04/24 18:35 20:08 23:55 MCV MCH MCHC RDW Plt Count MPV Absolute Nucleated RBC Nucleated RBC % (auto) aPTT Heparin Protocol 75.2 D Anion Gap Estim Creat Clear Calc Estimated GFR POC Glucose 248 H Random Glucose Calcium Urine Color Yellow Urine Appearance Clear Urine pH 7.5 Ur Specific [place] 1.015 Urine Protein Trace Urine Glucose (UA) >=1000 H Urine Ketones Negative Urine Blood Negative Urine Nitrite Negative Ur Leukocyte Esterase Negative Urine RBC 0-2 Urine WBC 6-10 H Ur Squamous Epith Cells 0-2 Urine Bacteria None Seen Hyaline Casts 0-2 Urine Osmolality 439 Ur Random Sodium 110.0 Urine Creatinine 33.86 07/05/24 07/05/24 05:45 07:26 MCV 86.5 MCH 28.6 MCHC 33.0 RDW 13.9 Plt Count 200 MPV 10.2 Absolute Nucleated RBC 0.000 Nucleated RBC % (auto) 0.0 aPTT Heparin Protocol 70.8 Anion Gap 14 Estim Creat Clear Calc 34.2 Estimated GFR 26 POC Glucose 237 H Random Glucose 275 H Calcium 9.0 Urine Color Urine Appearance Urine pH Ur Specific [place] Urine Protein Urine Glucose (UA) Urine Ketones Urine Blood Urine Nitrite Ur Leukocyte Esterase Urine RBC Urine WBC Ur Squamous Epith Cells Urine Bacteria Hyaline Casts Urine Osmolality Ur Random Sodium Urine Creatinine Microbiology Microbiology Results: Microbiology 07/04/24 18:35 Urine Culture - Preliminary Urine clean catch - Clean Catch Midstream Culture too young to evaluate. Assessment and Plan (1) Deep vein thrombosis (DVT) of both lower extremities: Status: Acute Plan 53F PMH morbid obesity, diabetes, hypertension, hyperlipidemia, history of perforated diverticulitis status post colostomy in 2017, cluster B personality disorder, depression and anxiety presented with bilateral leg pain and swelling found to have acute bilateral DVTs and acute kidney injury. Acute Bilateral DVTs Likely provoked from sedentary lifestyle Continue IV heparin, follow up vascular surgery Once renal function improved will consider for thrombectomy Acute kidney injury Possibly hypovolemic, continue IV fluids, hold metformin and lisinopril So far improving slosly No signs of hydronephrosis on CT scan Diabetes Continue basal bolus insulin Depression and anxiety Continue buspirone, clonidine, sertraline Full code reason for continued hospitalization: IV fluids for ALFREDO, IV heparin for DVT Quality Stroke Does the patient have a stroke diagnosis?: No VTE Prior VTE?: No VTE Risk Level:: Medical - moderate - high VTE Device Contraindication: Treatment Not Indicated VTE Drug Contraindication: N/A - Med Ordered
[2024-07-05 11:38] LABS: Glucose, Whole Blood 215 mg/dL (60-115)
[2024-07-05 16:33] LABS: Glucose, Whole Blood 239 mg/dL (60-115)
[2024-07-05] MEDS: Calcium Carbonate 750 MG TAB.CHEW PO (16:50)
[2024-07-05 20:04] LABS: Glucose, Whole Blood 263 mg/dL (60-115)
[2024-07-05] MEDS: oxyCODONE HCl Immed Release 5 MG TABLET PO (21:14)
[2024-07-05] MEDS: traZODone HCL 50 MG TABLET PO (21:15)
[2024-07-05] MEDS: Melatonin 3 MG TABLET 6 MG PO (21:15)
[2024-07-06] MEDS: Zolpidem Tartrate 5 MG TABLET PO ×2 (00:25→21:52)
[2024-07-06 04:00] VITALS: BP 123/58; PULSE 67; RESP 17; TEMP 36.1; O2SAT 96
[2024-07-06] MEDS: Lactated Ringers 1,000 ML 100 ML IVCONT ×2 (04:52→14:50)
[2024-07-06 06:37] LABS: Hematocrit 39.7 % (37.0-47.0); Hemoglobin 13.1 g/dl (12.0-16.0); Mean Corpuscular Hemoglobin 28.9 pg (27.0-33.0); Mean Corpuscular Volume 87.4 fL (80.0-98.0); Mean Platelet Volume 10.4 fL (9.4-12.3); Platelet Count 232 X10*3/uL (160-400); Red Blood Count 4.54 X10*6/uL (4.20-5.50); Red Cell Distribution Width 13.8 % (11.0-16.0); White Blood Count 5.2 X10*3/uL (4.8-10.8)
[2024-07-06 06:42] LABS: PTT Heparin Drip 66.6 SEC (53-77.9)
[2024-07-06 06:53] LABS: Anion Gap 17 (12-20); Blood Urea Nitrogen 25 mg/dL (9-16); Calcium 9.3 mg/dL (8.4-10.2); Carbon Dioxide 20 mmol/L (22-29); Chloride 106 mmol/L (96-108); Creatinine Clr Calc Pharmacy 36.3; Estimated Glomerular Filt Rate 27; Glucose Random 176 mg/dL (60-115); Potassium 4.6 mmol/L (3.3-5.1); Sodium 138 mmol/L (135-145)
[2024-07-06 07:51] VITALS: BP 140/64; PULSE 60; RESP 20; TEMP 36.1; O2SAT 98
[2024-07-06 08:15] VITALS: BP 140/64
[2024-07-06] MEDS: Insulin Glargine,Hum.rec.anlog 100 UNIT/ML 10 ML VIAL 42 UNIT SUBCUT ×2 (08:15→21:51)
[2024-07-06] MEDS: cloNIDine HCL 0.1 MG TABLET PO ×2 (08:15→21:50)
[2024-07-06] MEDS: Insulin Lispro 100 UNIT/ML 3 ML VIAL SUBCUT ×3 (08:15→21:50)
[2024-07-06] MEDS: Empagliflozin 10 MG TABLET PO (08:15)
[2024-07-06] MEDS: busPIRone HCl 5 MG TABLET PO ×2 (08:15→21:50)
[2024-07-06] MEDS: 0.9 % Sodium Chloride Flush 3 ML SYRINGE IVFLUSH (08:16)
[2024-07-06 08:23] LABS: Glucose, Whole Blood 160 mg/dL (60-115)
--- NOTE | 2024-07-06 10:07 | HO.PM.IMPN ---
Subjective Subjective Date of Service: 07/06/24 Interval History: Leg pain otherwise feeling okay Physical Exam Vital Signs: Vital Signs: Last Vital Signs Temp 97.0 F 07/06/24 07:51 Pulse 60 07/06/24 07:51 Resp 20 07/06/24 07:51 BP 140/64 H 07/06/24 08:15 Pulse Ox 98 07/06/24 07:51 O2 Del Method Room Air 07/06/24 07:51 BMI result Body Mass Index 43.0 General: AO X 3, no acute distress Resp: CTA bilateral, no accessory muscles used CVS: S1,S2,RRR GI: soft, non tender, non distended Neuro: motor grossly intact, alert Psych: appropriate affect, appropriate insight Bilateral lower extremity edema Objective Data Active Medications Acetaminophen (Acetaminophen 325 Mg Tablet) 650 mg PO Q6H PRN PRN Reason: Pain, Mild 1-3,fever,headache Buspirone HCl (Buspirone Hcl 5 Mg Tablet) 5 mg PO BID [facility] Last Admin: 07/06/24 08:15 Dose: 5 mg Documented By: CHITO Calcium Carbonate (Calcium Carbonate 750 Mg Tab.Chew) 750 mg PO Q4H PRN PRN Reason: Heartburn Last Admin: 07/05/24 16:50 Dose: 750 mg Documented By: SULMA Clonidine HCl (Clonidine Hcl 0.1 Mg Tablet) 0.1 mg PO BID [facility]; Protocol Last Admin: 07/06/24 08:15 Dose: 0.1 mg Documented By: CHITO Dextrose (Dextrose 50 % 25 Gm/50 Ml Syringe) 25 gm IVPUSH Q15M PRN; Protocol PRN Reason: per Hypoglycemia Standing Ord. Empagliflozin (Empagliflozin 10 Mg Tablet) 10 mg PO DAILY [facility] Last Admin: 07/06/24 08:15 Dose: 10 mg Documented By: CHITO Glucose (Glucose Gel 15 Gm Gel..Gram.) 15 gm PO Q15M PRN; Protocol PRN Reason: per Hypoglycemia Standing Ord. Heparin Sodium (Porcine) (Heparin Sodium,Porcine 5,000 Unit/Ml Vial) 3,900 unit 40 unit/kg (3900 unit) IVPUSH PROTOCOL BOLUS PRN; Protocol PRN Reason: 40 unit/kg - Heparin Protocol Last Admin: 07/04/24 17:27 Dose: 3,900 unit Documented By: SULMA Heparin Sodium (Porcine) (Heparin Sodium,Porcine 5,000 Unit/Ml Vial) 7,800 unit 80 unit/kg (7800 unit) IVPUSH PROTOCOL BOLUS PRN; Protocol PRN Reason: 80 unit/kg - Heparin Protocol Heparin Sodium/Sodium Chloride (Heparin Sodium,Porcine/1/2ns) 25,000 unit in 250 mls @ 0 mls/hr IVCONT .Q0M [facility]; Protocol Last Titration: 07/06/24 06:45 Dose: 15 units/kg/hr, 14.69 mls/hr Documented By: MARTI Co-signed By: MARQUITA Lactated Ringer's (Lr) 1,000 mls @ 100 mls/hr IVCONT .Q10H [facility] Last Admin: 07/06/24 04:52 Dose: 100 mls/hr Documented By: MARTI Insulin Glargine (Insulin Glargine,Hum.Rec.Anlog 100 Unit/Ml 10 Ml Vial) 42 unit SUBCUT BEDTIME [facility] Last Admin: 07/05/24 21:14 Dose: 42 unit Documented By: MARTI Insulin Glargine (Insulin Glargine,Hum.Rec.Anlog 100 Unit/Ml 10 Ml Vial) 42 unit SUBCUT DAILY [facility] Last Admin: 07/06/24 08:15 Dose: 42 unit Documented By: CHITO Insulin Human Lispro (Insulin Lispro 100 Unit/Ml 3 Ml Vial) 0 unit SUBCUT QIDACHS [facility]; Protocol Last Admin: 07/06/24 08:15 Dose: 2 unit Documented By: CHITO Magnesium Hydroxide (Milk Of Magnesia 30 Ml Oral.Susp) 30 ml PO DAILY PRN PRN Reason: Constipation Melatonin (Melatonin 3 Mg Tablet) 6 mg PO BEDTIME PRN PRN Reason: Insomnia Last Admin: 07/05/24 21:15 Dose: 6 mg Documented By: MARTI Morphine Sulfate (Morphine Sulfate 4 Mg/Ml Cartridge) 2 mg IVPUSH Q4H PRN; Protocol PRN Reason: Pain, Severe (Pain Scale 7-10) Oxycodone HCl (Oxycodone Hcl Immed Release 5 Mg Tablet) 5 mg PO Q6H PRN PRN Reason: Pain, Moderate(Pain Scale 4-6) Last Admin: 07/05/24 21:14 Dose: 5 mg Documented By: MARTI Sodium Chloride (0.9 % Sodium Chloride Flush 3 Ml Syringe) 3 ml IVFLUSH QSHIFT [facility] Last Admin: 07/06/24 08:16 Dose: 3 ml Documented By: CHITO Trazodone HCl (Trazodone Hcl 50 Mg Tablet) 50 mg PO BEDTIME PRN PRN Reason: Sleep Last Admin: 07/05/24 21:15 Dose: 50 mg Documented By: MARTI Zolpidem Tartrate (Zolpidem Tartrate 5 Mg Tablet) 5 mg PO BEDTIME PRN PRN Reason: Insomnia Last Admin: 07/06/24 00:25 Dose: 5 mg Documented By: MARTI Labs 07/06/24 06:16 07/06/24 06:16 Labs: Laboratory Results - last 24 hr 07/05/24 07/05/24 07/05/24 11:30 16:28 19:17 MCV MCH MCHC RDW Plt Count MPV Absolute Nucleated RBC Nucleated RBC % (auto) aPTT Heparin Protocol Anion Gap Estim Creat Clear Calc Estimated GFR POC Glucose 215 H 239 H 263 H Random Glucose Calcium 07/06/24 07/06/24 06:16 07:19 MCV 87.4 MCH 28.9 MCHC 33.0 RDW 13.8 Plt Count 232 MPV 10.4 Absolute Nucleated RBC 0.000 Nucleated RBC % (auto) 0.0 aPTT Heparin Protocol 66.6 Anion Gap 17 Estim Creat Clear Calc 36.3 Estimated GFR 27 POC Glucose 160 H Random Glucose 176 H Calcium 9.3 Microbiology Microbiology Results: Microbiology 07/04/24 18:35 Urine Culture - Preliminary Urine clean catch - Clean Catch Midstream Culture too young to evaluate. Assessment and Plan (1) Deep vein thrombosis (DVT) of both lower extremities: Status: Acute Plan 53F PMH morbid obesity, diabetes, hypertension, hyperlipidemia, history of perforated diverticulitis status post colostomy in 2017, cluster B personality disorder, depression and anxiety presented with bilateral leg pain and swelling found to have acute bilateral DVTs and acute kidney injury. Acute Bilateral DVTs Likely provoked from sedentary lifestyle Continue IV heparin, follow up vascular surgery Once renal function improved will consider for thrombectomy Acute kidney injury Possibly hypovolemic, continue IV fluids, hold metformin and lisinopril So far improving slowly No signs of hydronephrosis on CT scan nephro eval Diabetes Continue basal bolus insulin Depression and anxiety Continue buspirone, clonidine, sertraline Full code reason for continued hospitalization: IV fluids for ALFREDO, IV heparin for DVT Quality Stroke Does the patient have a stroke diagnosis?: No VTE Prior VTE?: No VTE Risk Level:: Medical - moderate - high VTE Device Contraindication: Treatment Not Indicated VTE Drug Contraindication: N/A - Med Ordered
--- NOTE | 2024-07-06 10:18 | PM.CNGS ---
History of Present Illness Consult details Consult date: 07/06/24 Reason for consult: other (DVT) Narrative: Very pleasant 53-year-old female presents for evaluation regarding DVT. She has a complex history with a diverting colostomy. She also has a psych history of depression. She had been mostly sedentary over the last few weeks in about 2 weeks ago she noticed increased swelling of the lower extremities. It had progressed significantly and she had been tongue quite immobile. She was urged by her family to seek attention in the emergency room. She was subsequently worked up and noted to have bilateral lower extremity DVT. We were unable to get more central imaging to her overall renal status. She is currently on a heparin drip. She now presents to us for vascular evaluation. Review of Systems Constitutional: Constitutional: Reports as per HPI ENT: Reports system reviewed and no additional complaints, except as documented Cardiovascular: Cardiovascular: Denies chest pain, Denies chest pain at rest and Denies chest pain with activity Respiratory: Respiratory: Denies chest congestion and Denies cough Gastrointestinal: Gastrointestinal: Reports no additional gastrointestinal complaints Musculoskeletal: Musculoskeletal: Denies abnormal gait Integumentary/Breasts: Skin/Breast: Reports pruritus and Denies wounds Neurologic: Reports system reviewed and no additional complaints, except as documented and Denies abnormal gait Psychiatric: Psychiatric: Denies no additional psychiatric complaints [facility] Past Medical History Medical History History of herpes genitalis GERD (gastroesophageal reflux disease) Anxiety and depression HTN (hypertension) Elevated cholesterol Left sided abdominal pain Boils of multiple sites COVID-[address] Diverticular disease Diabetes mellitus Depression Morbid obesity Family History Family History Mother Stroke Cardiac arrest Father Cardiac arrest Diabetes Brother Diabetes Surgical History Surgical History Hx of colonoscopy Hx of section History of colon resection Social History Social History Household Members: Family Household Members Other:: Sister Housing: Apartment Are you a primary care support representative to a significant other at home: No Do you presently have visiting nurse or other home services: No Alcohol intake: current Alcohol intake frequency: does not drink Patient Tobacco Use Status: Never used Tobacco Tobacco use type: Cigarette Cigarettes Per Day: 0 Years Smoked: 25 Second Hand Smoke Exposure: Yes (boyfriend) Substance Use Type: Marijuana Advance Directives Date on File: 07/23/16 service: No Meds Allergies Allergy/AdvReac Type Severity Reaction Status Date / Time stoma pace Allergy Unknown severe Uncoded 07/03/24 11:45 rash/Itch Active Medications: Current Medications Acetaminophen (Acetaminophen 325 Mg Tablet) 650 mg PO Q6H PRN PRN Reason: Pain, Mild 1-3,fever,headache Buspirone HCl (Buspirone Hcl 5 Mg Tablet) 5 mg PO BID [facility] Last Admin: 07/06/24 08:15 Dose: 5 mg Calcium Carbonate (Calcium Carbonate 750 Mg Tab.Chew) 750 mg PO Q4H PRN PRN Reason: Heartburn Last Admin: 07/05/24 16:50 Dose: 750 mg Clonidine HCl (Clonidine Hcl 0.1 Mg Tablet) 0.1 mg PO BID [facility]; Protocol Last Admin: 07/06/24 08:15 Dose: 0.1 mg Dextrose (Dextrose 50 % 25 Gm/50 Ml Syringe) 25 gm IVPUSH Q15M PRN; Protocol PRN Reason: per Hypoglycemia Standing Ord. Empagliflozin (Empagliflozin 10 Mg Tablet) 10 mg PO DAILY [facility] [place] Last Admin: 07/06/24 08:15 Dose: 10 mg Glucose (Glucose Gel 15 Gm Gel..Gram.) 15 gm PO Q15M PRN; Protocol PRN Reason: per Hypoglycemia Standing Ord. Heparin Sodium (Porcine) (Heparin Sodium,Porcine 5,000 Unit/Ml Vial) 3,900 unit 40 unit/kg (3900 unit) IVPUSH PROTOCOL BOLUS PRN; Protocol PRN Reason: 40 unit/kg - Heparin Protocol Last Admin: 07/04/24 17:27 Dose: 3,900 unit Heparin Sodium (Porcine) (Heparin Sodium,Porcine 5,000 Unit/Ml Vial) 7,800 unit 80 unit/kg (7800 unit) IVPUSH PROTOCOL BOLUS PRN; Protocol PRN Reason: 80 unit/kg - Heparin Protocol Heparin Sodium/Sodium Chloride (Heparin Sodium,Porcine/1/2ns) 25,000 unit in 250 mls @ 0 mls/hr IVCONT .Q0M [facility]; Protocol Last Titration: 07/06/24 06:45 Dose: 15 units/kg/hr, 14.69 mls/hr Lactated Ringer's (Lr) 1,000 mls @ 100 mls/hr IVCONT .Q10H [facility] Last Admin: 07/06/24 04:52 Dose: 100 mls/hr Insulin Glargine (Insulin Glargine,Hum.Rec.Anlog 100 Unit/Ml 10 Ml Vial) 42 unit SUBCUT BEDTIME [facility] Last Admin: 07/05/24 21:14 Dose: 42 unit Insulin Glargine (Insulin Glargine,Hum.Rec.Anlog 100 Unit/Ml 10 Ml Vial) 42 unit SUBCUT DAILY [facility] Last Admin: 07/06/24 08:15 Dose: 42 unit Insulin Human Lispro (Insulin Lispro 100 Unit/Ml 3 Ml Vial) 0 unit SUBCUT QIDACHS [facility]; Protocol Last Admin: 07/06/24 08:15 Dose: 2 unit Magnesium Hydroxide (Milk Of Magnesia 30 Ml Oral.Susp) 30 ml PO DAILY PRN PRN Reason: Constipation Melatonin (Melatonin 3 Mg Tablet) 6 mg PO BEDTIME PRN PRN Reason: Insomnia Last Admin: 07/05/24 21:15 Dose: 6 mg Morphine Sulfate (Morphine Sulfate 4 Mg/Ml Cartridge) 2 mg IVPUSH Q4H PRN; Protocol PRN Reason: Pain, Severe (Pain Scale 7-10) Oxycodone HCl (Oxycodone Hcl Immed Release 5 Mg Tablet) 5 mg PO Q6H PRN PRN Reason: Pain, Moderate(Pain Scale 4-6) Last Admin: 07/05/24 21:14 Dose: 5 mg Sodium Chloride (0.9 % Sodium Chloride Flush 3 Ml Syringe) 3 ml IVFLUSH QSHIFT [facility] Last Admin: 07/06/24 08:16 Dose: 3 ml Trazodone HCl (Trazodone Hcl 50 Mg Tablet) 50 mg PO BEDTIME PRN PRN Reason: Sleep Last Admin: 07/05/24 21:15 Dose: 50 mg Zolpidem Tartrate (Zolpidem Tartrate 5 Mg Tablet) 5 mg PO BEDTIME PRN PRN Reason: Insomnia Last Admin: 07/06/24 00:25 Dose: 5 mg Home Medications ?Medication ?Instructions ?Recorded ?Confirmed ?Last Taken ?Type atorvastatin 10 mg tablet 10 mg PO BEDTIME 04/06/20 07/03/24 Unknown History colostomy bags #5 ea 04/06/20 04/08/23 Unknown History lisinopril 20 mg tablet 20 mg PO DAILY 04/06/20 07/03/24 Unknown History trazodone 50 mg tablet 50 mg PO BEDTIME PRN Sleep 04/06/20 07/03/24 Unknown History buspirone 5 mg tablet 5 mg PO BID 08/15/22 07/03/24 Unknown History clonidine HCl 0.1 mg tablet 0.1 mg PO BID 08/15/22 07/03/24 Unknown History dulaglutide 1.5 mg/0.5 mL 1.5 mg subcut QWEEK 07/03/24 07/03/24 Unknown History subcutaneous pen injector (Trulicity) empagliflozin 10 mg tablet 10 mg PO DAILY 07/03/24 07/03/24 Unknown History (Jardiance) insulin glargine 100 unit/mL 60 unit subcut BID 07/03/24 07/03/24 07/03/24 History subcutaneous solution (Lantus U-100 Insulin) insulin lispro 100 unit/mL See Protocol subcut TIDAC 07/03/24 07/03/24 07/03/24 History subcutaneous pen metformin 500 mg tablet 500 mg PO BID 07/03/24 07/03/24 07/03/24 History Physical Exam Vital Signs: Vital Signs: Last Vital Signs Temp 97.0 F 07/06/24 07:51 Pulse 60 07/06/24 07:51 Resp 20 07/06/24 07:51 BP 140/64 H 07/06/24 08:15 Pulse Ox 98 07/06/24 07:51 O2 Del Method Room Air 07/06/24 07:51 BMI result Body Mass Index 43.0 Const: General: cooperative, healthy appearing and comfortable Orientation/consciousness: oriented to person, oriented to place and oriented to time Neck: Carotids: no bruits Chest: Chest palpation & inspection: normal inspection of the chest and normal palpation of entire chest wall Resp: Effort & Inspection: normal respiratory effort and able to speak in complete sentences Cardio: Rate: regular rate Heart sounds: S1 normal heart sound present and S2 normal heart sound present Peripheral pulses: Peripheral pulses 2+ throughout GI: Inspection: Yes normal to inspection Skin: Other: +2 edema, right greater than left CEAP Classification C4 - skin color changes Ep - Etiology Primary As - superficial veins P - reflux General skin exam: dry skin Neuro: General: oriented to person, oriented to place and oriented to time Extrem: Right lower extremity: full ROM, normal capillary refill and edema Left lower extremity: full ROM, normal capillary refill and edema Psych: Mental Status: mental status grossly normal Results Labs 07/06/24 06:16 07/06/24 06:16 Labs: Abnormal lab results 07/05/24 07/05/24 07/05/24 Range/Units 11:30 16:28 19:17 Carbon Dioxide (22-29) mmol/L BUN (9-16) mg/dL Creatinine (0.5-1.4) mg/dL POC Glucose 215 H 239 H 263 H (60-115) mg/dL Random Glucose (60-115) mg/dL 07/06/24 07/06/24 Range/Units 06:16 07:19 Carbon Dioxide 20 L (22-29) mmol/L BUN 25 H (9-16) mg/dL Creatinine 1.92 H (0.5-1.4) mg/dL POC Glucose 160 H (60-115) mg/dL Random Glucose 176 H (60-115) mg/dL Short CBC 07/06/24 Range/Units 06:16 WBC 5.2 (4.8-10.8) X10*3/uL Hgb 13.1 (12.0-16.0) g/dl Hct 39.7 (37.0-47.0) % Plt Count 232 (160-400) X10*3/uL BMP 07/06/24 06:16 Sodium 138 Potassium 4.6 Chloride 106 Carbon Dioxide 20 L BUN 25 H Creatinine 1.92 H Calcium 9.3 Urine 07/04/24 Range/Units 18:35 Urine Color Yellow Urine Appearance Clear Urine pH 7.5 (5.0-9.0) Ur Specific [place] 1.015 (1.005-1.025) Urine Protein Trace (Neg-Trace) mg/dL Urine Glucose (UA) >=1000 H (Negative) mg/dL All other labs normal. Imaging Additional studies: Venous ultrasound and CT scan were reviewed. Assessment and Plan (1) Deep vein thrombosis (DVT) of both lower extremities: Qualifiers: Affected thrombotic vein of extremity: femoral Chronicity: acute Qualified Code(s): I82.413 - Acute embolism and thrombosis of femoral vein, bilateral Status: Acute In short patient has extensive bilateral lower extremity DVT right greater than left. I do believe this is acute upon chronic. I do think she would benefit from mechanical venous thrombectomy due to the extensive clot burden. This was discussed with her in detail and she was in agreement. Unfortunately her renal function is not normal. Approximately 18 months ago she had near normal GFR and right now it is down to 27. Would like that better evaluated prior to intervention. During intervention I would be using a proximally 100 mL of contrast. Would continue with gentle hydration and most likely plan for intervention on Saturday if stable. (2) ALFREDO (acute kidney injury): Status: Acute Nephrology consult Procedures Date of Service Date of Service: 07/06/24
[2024-07-06 11:06] LABS: Glucose, Whole Blood 281 mg/dL (60-115)
[2024-07-06 11:38] VITALS: BP 104/55; PULSE 61; RESP 20; TEMP 36.1; O2SAT 96
[2024-07-06] MEDS: Heparin Sodium,Porcine/1/2NS 25,000 UNIT/250 ML IV.SOLN 14.69 UNIT IVCONT (12:28)
[2024-07-06 15:44] VITALS: BP 148/71; PULSE 63; RESP 16; TEMP 35.9; O2SAT 96
[2024-07-06 16:12] LABS: Glucose, Whole Blood 147 mg/dL (60-115)
[2024-07-06 20:00] VITALS: BP 127/59; PULSE 65; RESP 20; TEMP 36.1; O2SAT 97
[2024-07-06 21:35] LABS: Glucose, Whole Blood 200 mg/dL (60-115)
[2024-07-06] MEDS: traZODone HCL 50 MG TABLET PO (21:52)
[2024-07-06] MEDS: Melatonin 3 MG TABLET 6 MG PO (21:52)
[2024-07-06] MEDS: oxyCODONE HCl Immed Release 5 MG TABLET PO (21:53)
[2024-07-07] VITALS: BP 115/57; PULSE 70; RESP 16; TEMP 36.3; O2SAT 94
[2024-07-07 04:00] VITALS: BP 117/68; PULSE 63; RESP 16; TEMP 36.6; O2SAT 98
[2024-07-07 06:22] LABS: Hematocrit 35.6 % (37.0-47.0); Hemoglobin 11.6 g/dl (12.0-16.0); Mean Corpuscular HGB Conc 32.6 g/dl (31.0-35.0); Mean Corpuscular Hemoglobin 28.2 pg (27.0-33.0); Mean Corpuscular Volume 86.4 fL (80.0-98.0); Mean Platelet Volume 9.8 fL (9.4-12.3); NRBC Pct Auto 0.6 /100WBC (0.0-0.2); Platelet Count 228 X10*3/uL (160-400); Red Blood Count 4.12 X10*6/uL (4.20-5.50); Red Cell Distribution Width 14.2 % (11.0-16.0); White Blood Count 5.4 X10*3/uL (4.8-10.8)
[2024-07-07 06:34] LABS: PTT Heparin Drip 55.4 SEC (53-77.9)
[2024-07-07 06:51] LABS: Anion Gap 13 (12-20); Blood Urea Nitrogen 27 mg/dL (9-16); Calcium 9.3 mg/dL (8.4-10.2); Carbon Dioxide 23 mmol/L (22-29); Chloride 108 mmol/L (96-108); Creatinine Clr Calc Pharmacy 42.5; Estimated Glomerular Filt Rate 33; Glucose Random 169 mg/dL (60-115); Magnesium 1.4 mg/dL (1.6-2.6); Potassium 4.5 mmol/L (3.3-5.1); Sodium 139 mmol/L (135-145)
[2024-07-07 07:21] VITALS: BP 119/65; PULSE 62; RESP 18; TEMP 36.6; O2SAT 97
[2024-07-07] MEDS: Heparin Sodium,Porcine/1/2NS 25,000 UNIT/250 ML IV.SOLN 14.69 UNIT IVCONT ×2 (07:29→22:12)
[2024-07-07 07:32] LABS: Glucose, Whole Blood 150 mg/dL (60-115)
[2024-07-07] MEDS: cloNIDine HCL 0.1 MG TABLET PO ×2 (08:28→21:52)
[2024-07-07] MEDS: Empagliflozin 10 MG TABLET PO (08:28)
[2024-07-07] MEDS: oxyCODONE HCl Immed Release 5 MG TABLET PO ×2 (08:29→21:51)
[2024-07-07] MEDS: busPIRone HCl 5 MG TABLET PO ×2 (08:29→21:51)
[2024-07-07] MEDS: Magnesium Sulfate/H2O 2 GM/50 ML PIGGYBACK IV (08:31)
[2024-07-07] MEDS: Insulin Glargine,Hum.rec.anlog 100 UNIT/ML 10 ML VIAL 42 UNIT SUBCUT ×2 (08:31→22:22)
[2024-07-07] MEDS: 0.9 % Sodium Chloride Flush 3 ML SYRINGE IVFLUSH ×2 (08:33→17:02)
--- NOTE | 2024-07-07 08:55 | HO.PM.IMPN ---
Subjective Subjective Date of Service: 07/07/24 Interval History: No complaints, denies dysuria Physical Exam Vital Signs: Vital Signs: Last Vital Signs Temp 97.9 F 07/07/24 07:21 Pulse 62 07/07/24 07:21 Resp 18 07/07/24 07:21 BP 119/65 07/07/24 07:21 Pulse Ox 97 07/07/24 07:21 O2 Del Method Room Air 07/07/24 07:21 BMI result Body Mass Index 43.0 Const: General: cooperative, healthy appearing and comfortable Orientation/consciousness: oriented to person, oriented to place and oriented to time Neck: Carotids: no bruits Chest: Chest palpation & inspection: normal inspection of the chest and normal palpation of entire chest wall Resp: Effort & Inspection: normal respiratory effort and able to speak in complete sentences Cardio: Rate: regular rate Heart sounds: S1 normal heart sound present and S2 normal heart sound present Peripheral pulses: Peripheral pulses 2+ throughout GI: Inspection: Yes normal to inspection Skin: Other: +2 edema, right greater than left CEAP Classification C4 - skin color changes Ep - Etiology Primary As - superficial veins P - reflux General skin exam: dry skin Neuro: General: oriented to person, oriented to place and oriented to time Extrem: Right lower extremity: full ROM, normal capillary refill and edema Left lower extremity: full ROM, normal capillary refill and edema Psych: Mental Status: mental status grossly normal Objective Data Active Medications Acetaminophen (Acetaminophen 325 Mg Tablet) 650 mg PO Q6H PRN PRN Reason: Pain, Mild 1-3,fever,headache Buspirone HCl (Buspirone Hcl 5 Mg Tablet) 5 mg PO BID [facility] Last Admin: 07/07/24 08:29 Dose: 5 mg Documented By: LIAN Calcium Carbonate (Calcium Carbonate 750 Mg Tab.Chew) 750 mg PO Q4H PRN PRN Reason: Heartburn Last Admin: 07/05/24 16:50 Dose: 750 mg Documented By: SULMA Clonidine HCl (Clonidine Hcl 0.1 Mg Tablet) 0.1 mg PO BID [facility]; Protocol Last Admin: 07/07/24 08:28 Dose: 0.1 mg Documented By: LIAN Dextrose (Dextrose 50 % 25 Gm/50 Ml Syringe) 25 gm IVPUSH Q15M PRN; Protocol PRN Reason: per Hypoglycemia Standing Ord. Empagliflozin (Empagliflozin 10 Mg Tablet) 10 mg PO DAILY [facility] Last Admin: 07/07/24 08:28 Dose: 10 mg Documented By: LIAN Glucose (Glucose Gel 15 Gm Gel..Gram.) 15 gm PO Q15M PRN; Protocol PRN Reason: per Hypoglycemia Standing Ord. Heparin Sodium (Porcine) (Heparin Sodium,Porcine 5,000 Unit/Ml Vial) 3,900 unit 40 unit/kg (3900 unit) IVPUSH PROTOCOL BOLUS PRN; Protocol PRN Reason: 40 unit/kg - Heparin Protocol Last Admin: 07/04/24 17:27 Dose: 3,900 unit Documented By: SULMA Heparin Sodium (Porcine) (Heparin Sodium,Porcine 5,000 Unit/Ml Vial) 7,800 unit 80 unit/kg (7800 unit) IVPUSH PROTOCOL BOLUS PRN; Protocol PRN Reason: 80 unit/kg - Heparin Protocol Heparin Sodium/Sodium Chloride (Heparin Sodium,Porcine/1/2ns) 25,000 unit in 250 mls @ 0 mls/hr IVCONT .Q0M [facility]; Protocol Last Admin: 07/07/24 07:29 Dose: 15 units/kg/hr, 14.69 mls/hr Documented By: RENALDO Co-signed By: LIAN Insulin Glargine (Insulin Glargine,Hum.Rec.Anlog 100 Unit/Ml 10 Ml Vial) 42 unit SUBCUT BEDTIME [facility] Last Admin: 07/06/24 21:51 Dose: 42 unit Documented By: RENALDO Insulin Glargine (Insulin Glargine,Hum.Rec.Anlog 100 Unit/Ml 10 Ml Vial) 42 unit SUBCUT DAILY [facility] Last Admin: 07/07/24 08:31 Dose: 42 unit Documented By: LIAN Insulin Human Lispro (Insulin Lispro 100 Unit/Ml 3 Ml Vial) 0 unit SUBCUT QIDACHS [facility]; Protocol Last Admin: 07/07/24 08:28 Dose: Not Given Documented By: LIAN Non-Admin Reason: No Insulin Coverage Magnesium Hydroxide (Milk Of Magnesia 30 Ml Oral.Susp) 30 ml PO DAILY PRN PRN Reason: Constipation Melatonin (Melatonin 3 Mg Tablet) 6 mg PO BEDTIME PRN PRN Reason: Insomnia Last Admin: 07/06/24 21:52 Dose: 6 mg Documented By: RENALDO Morphine Sulfate (Morphine Sulfate 4 Mg/Ml Cartridge) 2 mg IVPUSH Q4H PRN; Protocol PRN Reason: Pain, Severe (Pain Scale 7-10) Oxycodone HCl (Oxycodone Hcl Immed Release 5 Mg Tablet) 5 mg PO Q6H PRN PRN Reason: Pain, Moderate(Pain Scale 4-6) Last Admin: 07/07/24 08:29 Dose: 5 mg Documented By: LIAN Sodium Chloride (0.9 % Sodium Chloride Flush 3 Ml Syringe) 3 ml IVFLUSH QSHIFT [facility] Last Admin: 07/07/24 08:33 Dose: 3 ml Documented By: LIAN Trazodone HCl (Trazodone Hcl 50 Mg Tablet) 50 mg PO BEDTIME PRN PRN Reason: Sleep Last Admin: 07/06/24 21:52 Dose: 50 mg Documented By: RENALDO Zolpidem Tartrate (Zolpidem Tartrate 5 Mg Tablet) 5 mg PO BEDTIME PRN PRN Reason: Insomnia Last Admin: 07/06/24 21:52 Dose: 5 mg Documented By: RENALDO Labs 07/07/24 06:08 07/07/24 06:08 Labs: Laboratory Results - last 24 hr 07/06/24 07/06/24 07/06/24 10:59 16:08 21:29 MCV MCH MCHC RDW Plt Count MPV Absolute Nucleated RBC Nucleated RBC % (auto) aPTT Heparin Protocol Anion Gap Estim Creat Clear Calc Estimated GFR POC Glucose 281 H 147 H 200 H Random Glucose Calcium Magnesium 07/07/24 07/07/24 06:08 07:22 MCV 86.4 MCH 28.2 MCHC 32.6 RDW 14.2 Plt Count 228 MPV 9.8 Absolute Nucleated RBC 0.030 H Nucleated RBC % (auto) 0.6 H aPTT Heparin Protocol 55.4 Anion Gap 13 Estim Creat Clear Calc 42.5 Estimated GFR 33 POC Glucose 150 H Random Glucose 169 H Calcium 9.3 Magnesium 1.4 L* Microbiology Microbiology Results: Microbiology 07/04/24 18:35 Urine Culture - Final Urine clean catch - Clean Catch Midstream Strep agalactiae (Grp B) Assessment and Plan (1) Deep vein thrombosis (DVT) of both lower extremities: Status: Acute Plan 53F PMH morbid obesity, diabetes, hypertension, hyperlipidemia, history of perforated diverticulitis status post colostomy in 2017, cluster B personality disorder, depression and anxiety presented with bilateral leg pain and swelling found to have acute bilateral DVTs and acute kidney injury. Acute Bilateral DVTs Likely provoked from sedentary lifestyle Continue IV heparin, follow up vascular surgery Plan for thrombectomy 07/08/24 Acute kidney injury Possibly hypovolemic, continue IV fluids, hold metformin and lisinopril So far improving slowly No signs of hydronephrosis on CT scan nephro appreciated, follow up renal artery ultrasound Diabetes Continue basal bolus insulin Depression and anxiety Continue buspirone, clonidine, sertraline Full code reason for continued hospitalization: IV fluids for ALFREDO, IV heparin for DVT Quality Stroke Does the patient have a stroke diagnosis?: No VTE Prior VTE?: No VTE Risk Level:: Medical - moderate - high VTE Device Contraindication: Treatment Not Indicated VTE Drug Contraindication: N/A - Med Ordered
--- NOTE | 2024-07-07 09:43 | HO.VASCPN ---
Subjective Subjective Date of Service: 07/07/24 Interval history: More is doing well this morning. She endorses some pain in her bilateral lower extremities, in her calves, knees, and hip area, worse with ambulation. She does have a lengthy low back/sciatica history as well. She denies any shortness of breath, deep breathing, or chest pain. She has been sleeping well. She was NPO last night due to possible procedure today; however, it will be done tomorrow. Physical Exam Vital Signs: Vital Signs: Last Vital Signs Temp 97.9 F 07/07/24 07:21 Pulse 62 07/07/24 07:21 Resp 18 07/07/24 07:21 BP 119/65 07/07/24 07:21 Pulse Ox 97 07/07/24 07:21 O2 Del Method Room Air 07/07/24 07:21 BMI result Body Mass Index 43.0 Const: General: comfortable and no acute distress Orientation/consciousness: patient oriented x3 HEENT: Ears: hearing grossly normal bilaterally Resp: Effort & Inspection: normal respiratory effort and able to speak in complete sentences Auscultation: clear to auscultation bilaterally Cardio: Rate: regular rate Rhythm: regular rhythm Heart sounds: S1 normal heart sound present and S2 normal heart sound present Bruits: no abdominal aortic bruits, no carotid bruits, no femoral bruits and no renal bruits GI: Palpation (GI): No Abdominal aortic bruit present Neuro: General: patient oriented x3 Cranial nerves: Yes CN's II-XII intact bilaterally Extrem: Other: Bilateral lower extremities: Palpable DP pulses. Progress Note: A&P Assessment and plan (1) Deep vein thrombosis (DVT) of both lower extremities: Status: Acute Assessment and Plan: Radha presented to the ER with concerns for bilateral leg pain for over 2 weeks. She also had some chest palpitations when lying flat but denied any shortness of breath or dyspnea on exertion. She was found to have bilateral lower extremity DVTs. We will be taking her for a mechanical venous thrombectomy tomorrow. We will make her NPO at midnight. I had a lengthy discussion with her about the procedure this morning and allowed her to ask any questions that she may have. I discussed the complications that may occur as well. I discussed that if any other questions arose, she can have the nurse reach back out to us. I also discussed with Dr. Bob will be having her sign consents in the morning and she could ask questions then as well. Due to declining GFR, nephrology was consulted; they did clear her for the ability for us to do the thrombectomy tomorrow. Her GFR has been increasing since admission. We will continue to monitor. If there are any questions or concerns, please do not hesitate to reach out to us. Time Spent With Patient Time: Total time managing care of this patient today ____ minutes. Procedures Date of Service Date of Service: 07/07/24 Quality Stroke Does the patient have a stroke diagnosis?: No VTE Prior VTE?: No VTE Risk Level:: Medical - moderate - high VTE Device Contraindication: Treatment Not Indicated VTE Drug Contraindication: N/A - Med Ordered
[2024-07-07 10:57] LABS: MANUAL DIFF FLAG NO
[2024-07-07 11:14] LABS: Basophils Percent Auto 0.6 % (0-2); Eosinophils Absolute Auto 0.1 X10*3/uL (0.0-0.4); Eosinophils Percent Auto 2.7 % (0-4); Hematocrit 35.9 % (37.0-47.0); Hemoglobin 11.8 g/dl (12.0-16.0); Imm Gran Abs Auto 0.21 X10*3/uL (0.00-0.03); Imm Gran Pct Auto 4.1 % (0.0-0.4); Lymphocytes Absolute Auto 1.4 X10*3/uL (1.2-4.9); Lymphocytes Percent Auto 26.1 % (20-40); Mean Corpuscular HGB Conc 32.9 g/dl (31.0-35.0); Mean Corpuscular Hemoglobin 28.3 pg (27.0-33.0); Mean Corpuscular Volume 86.1 fL (80.0-98.0); Mean Platelet Volume 10.2 fL (9.4-12.3); Monocytes Absolute Auto 0.4 X10*3/uL (0.1-1.2); Monocytes Percent Auto 8.1 % (2-11); Neutrophils Percent Auto 58.4 % (45-73); Platelet Count 237 X10*3/uL (160-400); Red Blood Count 4.17 X10*6/uL (4.20-5.50); Red Cell Distribution Width 14.1 % (11.0-16.0); White Blood Count 5.2 X10*3/uL (4.8-10.8)
[2024-07-07 11:16] LABS: Glucose, Whole Blood 261 mg/dL (60-115)
[2024-07-07 11:19] LABS: Creatinine Clr Calc Pharmacy 44.1; Estimated Glomerular Filt Rate 34
[2024-07-07] MEDS: Insulin Lispro 100 UNIT/ML 3 ML VIAL SUBCUT ×3 (11:49→22:22)
[2024-07-07] MEDS: 0.9 % Sodium Chloride 1,000 ML 100 ML IVCONT ×2 (11:51→21:51)
--- NOTE | 2024-07-07 13:12 | PM.CNNEP ---
History of Present Illness Reason for Consult Consult date: 07/07/24 Reason for consult: ALFREDO Chief Complaint Chief complaint: Bilateral DVTs History of Present Illness Narrative: 53-year-old female with ?insulin-dependent type 2 diabetes, HTN, HLD, hx of perforated diverticulitis s/p colostomy in 2017, cluster B personality disorder, anxiety, and depression who presented to the ED for evaluation of worsening bilateral leg pain x2 weeks. Pt reports has been experiencing intermittent leg pain for the past few months, usually presenting unilaterally and alternating between left and right leg. Pt reports had difficulty walking and sleeping due to the pain and discomfort. Has chronic numbness and tingling in extremities around baseline. Some nausea but no vomiting. Reports had liquid stool in ostomy bag for a day or 2 last week, and again this week on Saturday and Saturday. Reports has been eating and drinking normally. Denies polyuria, dysuria, or anuria. Pt reports significant hx of depression and states has been sedentary for the past 1-2 years. Pt lives alone and has states does not like to leave the house and instead spends a great deal of time on her couch watching TV. She denied fever, chills, nausea, vomiting, abdominal pain. No chest pain/pressure, palpitations. Denies shortness or breath or difficulty breathing. In the ER pt was tachycardic up to 106 and hypertensive up to 179/65. Labs were significant for BUN 28 and creatinine 2.48 (elevated from 1.00 on 12/04/2022). No leukocytosis. Stable H&H. No significant electrolyte abnormalities. Venous duplex ultrasound positive for extensive occlusive DVT of right leg, and positive for partially occlusive DVT of left leg. Pt was treated with IVF and started on a heparin drip. Pt was admitted to the hospital for treatment and further evaluation of acute bilateral DVTs as well as ALFREDO. Nephrology has been consulted to assist in her clinical care during her current hospital stay Review of Systems Review of Systems Yes all other systems are reviewed and are negative [facility], [facility] Past Medical History Medical History History of herpes genitalis GERD (gastroesophageal reflux disease) Anxiety and depression HTN (hypertension) Elevated cholesterol Left sided abdominal pain Boils of multiple sites COVID-[address] Diverticular disease Diabetes mellitus Depression Morbid obesity Family History Family History Mother Stroke Cardiac arrest Father Cardiac arrest Diabetes Brother Diabetes Surgical History Surgical History Hx of colonoscopy Hx of section History of colon resection Social History Social History Household Members: Family Household Members Other:: Sister Housing: Apartment Are you a primary career consultant to a significant other at home: No Do you presently have visiting nurse or other home services: No Alcohol intake: current Alcohol intake frequency: does not drink Patient Tobacco Use Status: Never used Tobacco Tobacco use type: Cigarette Cigarettes Per Day: 0 Years Smoked: 25 Second Hand Smoke Exposure: Yes (boyfriend) Substance Use Type: Marijuana Advance Directives Date on File: 07/23/16 service: No Meds Allergies Allergy/AdvReac Type Severity Reaction Status Date / Time stoma pace Allergy Unknown severe Uncoded 07/03/24 11:45 rash/Itch Active Medications: Current Medications Acetaminophen (Acetaminophen 325 Mg Tablet) 650 mg PO Q6H PRN PRN Reason: Pain, Mild 1-3,fever,headache Buspirone HCl (Buspirone Hcl 5 Mg Tablet) 5 mg PO BID [facility] Last Admin: 07/07/24 08:29 Dose: 5 mg Calcium Carbonate (Calcium Carbonate 750 Mg Tab.Chew) 750 mg PO Q4H PRN PRN Reason: Heartburn Last Admin: 07/05/24 16:50 Dose: 750 mg Clonidine HCl (Clonidine Hcl 0.1 Mg Tablet) 0.1 mg PO BID [facility]; Protocol Last Admin: 07/07/24 08:28 Dose: 0.1 mg Dextrose (Dextrose 50 % 25 Gm/50 Ml Syringe) 25 gm IVPUSH Q15M PRN; Protocol PRN Reason: per Hypoglycemia Standing Ord. Empagliflozin (Empagliflozin 10 Mg Tablet) 10 mg PO DAILY [facility] Last Admin: 07/07/24 08:28 Dose: 10 mg Glucose (Glucose Gel 15 Gm Gel..Gram.) 15 gm PO Q15M PRN; Protocol PRN Reason: per Hypoglycemia Standing Ord. Heparin Sodium (Porcine) (Heparin Sodium,Porcine 5,000 Unit/Ml Vial) 3,900 unit 40 unit/kg (3900 unit) IVPUSH PROTOCOL BOLUS PRN; Protocol PRN Reason: 40 unit/kg - Heparin Protocol Last Admin: 07/04/24 17:27 Dose: 3,900 unit Heparin Sodium (Porcine) (Heparin Sodium,Porcine 5,000 Unit/Ml Vial) 7,800 unit 80 unit/kg (7800 unit) IVPUSH PROTOCOL BOLUS PRN; Protocol PRN Reason: 80 unit/kg - Heparin Protocol Heparin Sodium/Sodium Chloride (Heparin Sodium,Porcine/1/2ns) 25,000 unit in 250 mls @ 0 mls/hr IVCONT .Q0M [facility]; Protocol Last Admin: 07/07/24 07:29 Dose: 15 units/kg/hr, 14.69 mls/hr Sodium Chloride (Ns) 1,000 mls @ 100 mls/hr IVCONT .Q10H [facility] Last Admin: 07/07/24 11:51 Dose: 100 mls/hr Insulin Glargine (Insulin Glargine,Hum.Rec.Anlog 100 Unit/Ml 10 Ml Vial) 42 unit SUBCUT BEDTIME [facility] Last Admin: 07/06/24 21:51 Dose: 42 unit Insulin Glargine (Insulin Glargine,Hum.Rec.Anlog 100 Unit/Ml 10 Ml Vial) 42 unit SUBCUT DAILY [facility] Last Admin: 07/07/24 08:31 Dose: 42 unit Insulin Human Lispro (Insulin Lispro 100 Unit/Ml 3 Ml Vial) 0 unit SUBCUT QIDACHS [facility]; Protocol Last Admin: 07/07/24 11:49 Dose: 6 unit Magnesium Hydroxide (Milk Of Magnesia 30 Ml Oral.Susp) 30 ml PO DAILY PRN PRN Reason: Constipation Melatonin (Melatonin 3 Mg Tablet) 6 mg PO BEDTIME PRN PRN Reason: Insomnia Last Admin: 07/06/24 21:52 Dose: 6 mg Morphine Sulfate (Morphine Sulfate 4 Mg/Ml Cartridge) 2 mg IVPUSH Q4H PRN; Protocol PRN Reason: Pain, Severe (Pain Scale 7-10) Oxycodone HCl (Oxycodone Hcl Immed Release 5 Mg Tablet) 5 mg PO Q6H PRN PRN Reason: Pain, Moderate(Pain Scale 4-6) Last Admin: 07/07/24 08:29 Dose: 5 mg Sodium Chloride (0.9 % Sodium Chloride Flush 3 Ml Syringe) 3 ml IVFLUSH QSHIFT [facility] Last Admin: 07/07/24 08:33 Dose: 3 ml Trazodone HCl (Trazodone Hcl 50 Mg Tablet) 50 mg PO BEDTIME PRN PRN Reason: Sleep Last Admin: 07/06/24 21:52 Dose: 50 mg Zolpidem Tartrate (Zolpidem Tartrate 5 Mg Tablet) 5 mg PO BEDTIME PRN PRN Reason: Insomnia Last Admin: 07/06/24 21:52 Dose: 5 mg Home Medications ?Medication ?Instructions ?Recorded ?Confirmed ?Last Taken ?Type atorvastatin 10 mg tablet 10 mg PO BEDTIME 04/06/20 07/03/24 Unknown History colostomy bags #5 ea 04/06/20 04/08/23 Unknown History lisinopril 20 mg tablet 20 mg PO DAILY 04/06/20 07/03/24 Unknown History trazodone 50 mg tablet 50 mg PO BEDTIME PRN Sleep 04/06/20 07/03/24 Unknown History buspirone 5 mg tablet 5 mg PO BID 08/15/22 07/03/24 Unknown History clonidine HCl 0.1 mg tablet 0.1 mg PO BID 08/15/22 07/03/24 Unknown History dulaglutide 1.5 mg/0.5 mL 1.5 mg subcut QWEEK 07/03/24 07/03/24 Unknown History subcutaneous pen injector (Trulicity) empagliflozin 10 mg tablet 10 mg PO DAILY 07/03/24 07/03/24 Unknown History (Jardiance) insulin glargine 100 unit/mL 60 unit subcut BID 07/03/24 07/03/24 07/03/24 History subcutaneous solution (Lantus U-100 Insulin) insulin lispro 100 unit/mL See Protocol subcut TIDAC 07/03/24 07/03/24 07/03/24 History subcutaneous pen metformin 500 mg tablet 500 mg PO BID 07/03/24 07/03/24 07/03/24 History Physical Exam Vital Signs: Last Vital Signs Temp 97.9 F 07/07/24 07:21 Pulse 62 07/07/24 07:21 Resp 18 07/07/24 07:21 BP 119/65 07/07/24 07:21 Pulse Ox 97 07/07/24 07:21 O2 Del Method Room Air 07/07/24 07:21 BMI result Body Mass Index 43.0 Const General: no acute distress Orientation/consciousness: patient oriented x3 Eyes EOM: EOMs intact bilaterally Neck Neck: Yes supple Resp Auscultation: diminished lung sounds Cardio Rate: regular rate GI Palpation (GI): Soft to palpation Neuro General: patient oriented x3 Extrem General: Yes edema Results Lab Results 07/07/24 10:39 07/07/24 10:39 Lab results: Chemistry 07/05/24 07/06/24 07/07/24 05:45 06:16 06:08 Sodium 138 138 139 Potassium 4.9 4.6 4.5 Carbon Dioxide 23 20 L 23 BUN 24 H 25 H 27 H Creatinine 2.04 H 1.92 H 1.64 H Calcium 9.0 9.3 9.3 07/07/24 10:39 Sodium Potassium Carbon Dioxide BUN Creatinine 1.58 H Calcium Hematology 07/05/24 07/06/24 07/07/24 05:45 06:16 06:08 WBC 4.8 5.2 5.4 Hgb 11.4 L 13.1 11.6 L Plt Count 200 232 228 07/07/24 10:39 WBC 5.2 Hgb 11.8 L Plt Count 237 Urinalysis 07/04/24 18:35 Urine Color Yellow Urine Appearance Clear Urine pH 7.5 Ur Specific [place] 1.015 Urine Protein Trace Urine Glucose (UA) >=1000 H Urine Ketones Negative Urine Blood Negative Urine Nitrite Negative Ur Leukocyte Esterase Negative Urine RBC 0-2 Urine WBC 6-10 H Ur Squamous Epith Cells 0-2 Hyaline Casts 0-2 Urine Studies 07/04/24 18:35 Urine Osmolality 439 Urine Creatinine 33.86 Assessment and Plan (1) ALFREDO (acute kidney injury): Status: Acute Plan ALFREDO due to compromise in renal perfusion Likely had altered autoregulation of the kidney ACEI on hold; U/A not supportive of GN/AIN DOppler renal arteries- No thrombus Complement levels pending; No RBC in U/A Serum creatinine improving C/W rest of current supportive management for now Procedures Date of Service Date of Service: 07/07/24
--- NOTE | 2024-07-07 14:19 | MHC.CM.PN ---
EMR reviewed and per MD rounds, pt is not medically cleared for discharge due to management of ALFREDO and DVT.
[2024-07-07 16:51] LABS: Glucose, Whole Blood 211 mg/dL (60-115)
[2024-07-07 20:23] LABS: Glucose, Whole Blood 268 mg/dL (60-115)
[2024-07-07 20:30] VITALS: BP 126/69; PULSE 67; RESP 20; TEMP 36.4; O2SAT 97
[2024-07-07] MEDS: Zolpidem Tartrate 5 MG TABLET PO (21:51)
[2024-07-07 21:52] VITALS: BP 126/69
[2024-07-07] MEDS: traZODone HCL 50 MG TABLET PO (21:53)
[2024-07-08] VITALS (28 sets, daily range): BP systolic 111–207; BP diastolic 56–98; PULSE 60–89; RESP 13–20; TEMP 36.2–37.2; O2SAT 96–100
[2024-07-08 06:28] LABS: PTT Heparin Drip 58.9 SEC (53-77.9)
[2024-07-08] MEDS: 0.9 % Sodium Chloride 1,000 ML 100 ML IVCONT ×2 (06:28→16:05)
[2024-07-08 06:35] LABS: Anion Gap 14 (12-20); Blood Urea Nitrogen 24 mg/dL (9-16); Calcium 9.1 mg/dL (8.4-10.2); Carbon Dioxide 21 mmol/L (22-29); Chloride 108 mmol/L (96-108); Creatinine Clr Calc Pharmacy 45.6; Estimated Glomerular Filt Rate 36; Glucose Random 143 mg/dL (60-115); Potassium 4.5 mmol/L (3.3-5.1); Sodium 138 mmol/L (135-145)
[2024-07-08 07:09] LABS: Hematocrit 38.6 % (37.0-47.0); Hemoglobin 12.6 g/dl (12.0-16.0); Mean Corpuscular HGB Conc 32.6 g/dl (31.0-35.0); Mean Corpuscular Hemoglobin 28.4 pg (27.0-33.0); Mean Corpuscular Volume 86.9 fL (80.0-98.0); Mean Platelet Volume 10.3 fL (9.4-12.3); Platelet Count 262 X10*3/uL (160-400); Red Blood Count 4.44 X10*6/uL (4.20-5.50); Red Cell Distribution Width 14.1 % (11.0-16.0); White Blood Count 6.4 X10*3/uL (4.8-10.8)
[2024-07-08] MEDS: fentaNYL citrate/PF 100 MCG/2 ML VIAL 25 MCG IVPUSH ×2 (08:40→09:10)
[2024-07-08] MEDS: Midazolam HCl 2 MG/2 ML VIAL 0.5 MG IVPUSH ×2 (08:40→09:10)
[2024-07-08] MEDS: Heparin Sodium,Porcine 10,000 UNIT/10 ML VIAL 8000 UNIT IVPUSH ×2 (08:53→09:07)
--- NOTE | 2024-07-08 09:21 | HO.PM.IMPN ---
Subjective Subjective Date of Service: 07/08/24 Interval History: No complaints, denies dysuria Physical Exam Vital Signs: Vital Signs: Last Vital Signs Temp 97.9 F 07/08/24 08:17 Pulse 68 07/08/24 09:10 Resp 18 07/08/24 09:10 BP 197/83 H 07/08/24 09:10 Pulse Ox 100 07/08/24 09:10 O2 Del Method Nasal Cannula 07/08/24 09:10 O2 Flow Rate 2 07/08/24 09:10 FiO2 36 07/08/24 09:10 BMI result Body Mass Index 43.0 Const: General: no acute distress Orientation/consciousness: patient oriented x3 Eyes: EOM: EOMs intact bilaterally Neck: Neck: Yes supple Resp: Auscultation: diminished lung sounds Cardio: Rate: regular rate GI: Palpation (GI): Soft to palpation Neuro: General: patient oriented x3 Extrem: General: Yes edema Objective Data Active Medications Acetaminophen (Acetaminophen 325 Mg Tablet) 650 mg PO Q6H PRN PRN Reason: Pain, Mild 1-3,fever,headache Buspirone HCl (Buspirone Hcl 5 Mg Tablet) 5 mg PO BID [facility] Last Admin: 07/07/24 21:51 Dose: 5 mg Documented By: RENALDO Calcium Carbonate (Calcium Carbonate 750 Mg Tab.Chew) 750 mg PO Q4H PRN PRN Reason: Heartburn Last Admin: 07/05/24 16:50 Dose: 750 mg Documented By: SULMA Clonidine HCl (Clonidine Hcl 0.1 Mg Tablet) 0.1 mg PO BID [facility]; Protocol Last Admin: 07/07/24 21:52 Dose: 0.1 mg Documented By: RENALDO Dextrose (Dextrose 50 % 25 Gm/50 Ml Syringe) 25 gm IVPUSH Q15M PRN; Protocol PRN Reason: per Hypoglycemia Standing Ord. Empagliflozin (Empagliflozin 10 Mg Tablet) 10 mg PO DAILY [facility] Last Admin: 07/07/24 08:28 Dose: 10 mg Documented By: LIAN Glucose (Glucose Gel 15 Gm Gel..Gram.) 15 gm PO Q15M PRN; Protocol PRN Reason: per Hypoglycemia Standing Ord. Heparin Sodium (Porcine) (Heparin Sodium,Porcine 5,000 Unit/Ml Vial) 3,900 unit 40 unit/kg (3900 unit) IVPUSH PROTOCOL BOLUS PRN; Protocol PRN Reason: 40 unit/kg - Heparin Protocol Last Admin: 07/04/24 17:27 Dose: 3,900 unit Documented By: SULMA Heparin Sodium (Porcine) (Heparin Sodium,Porcine 5,000 Unit/Ml Vial) 7,800 unit 80 unit/kg (7800 unit) IVPUSH PROTOCOL BOLUS PRN; Protocol PRN Reason: 80 unit/kg - Heparin Protocol Heparin Sodium/Sodium Chloride (Heparin Sodium,Porcine/1/2ns) 25,000 unit in 250 mls @ 0 mls/hr IVCONT .Q0M [facility]; Protocol Last Titration: 07/08/24 07:45 Dose: 15 units/kg/hr, 14.69 mls/hr Documented By: LIAN Co-signed By: CHITO Sodium Chloride (Ns) 1,000 mls @ 100 mls/hr IVCONT .Q10H [facility] Last Admin: 07/08/24 06:28 Dose: 100 mls/hr Documented By: RENALDO Insulin Glargine (Insulin Glargine,Hum.Rec.Anlog 100 Unit/Ml 10 Ml Vial) 42 unit SUBCUT BEDTIME [facility] Last Admin: 07/07/24 22:22 Dose: 42 unit Documented By: RENALDO Insulin Glargine (Insulin Glargine,Hum.Rec.Anlog 100 Unit/Ml 10 Ml Vial) 42 unit SUBCUT DAILY [facility] Last Admin: 07/07/24 08:31 Dose: 42 unit Documented By: LIAN Insulin Human Lispro (Insulin Lispro 100 Unit/Ml 3 Ml Vial) 0 unit SUBCUT QIDACHS [facility]; Protocol Last Admin: 07/08/24 07:49 Dose: Not Given Documented By: LIAN Non-Admin Reason: NPO Magnesium Hydroxide (Milk Of Magnesia 30 Ml Oral.Susp) 30 ml PO DAILY PRN PRN Reason: Constipation Melatonin (Melatonin 3 Mg Tablet) 6 mg PO BEDTIME PRN PRN Reason: Insomnia Last Admin: 07/06/24 21:52 Dose: 6 mg Documented By: RENALDO Morphine Sulfate (Morphine Sulfate 4 Mg/Ml Cartridge) 2 mg IVPUSH Q4H PRN; Protocol PRN Reason: Pain, Severe (Pain Scale 7-10) Oxycodone HCl (Oxycodone Hcl Immed Release 5 Mg Tablet) 5 mg PO Q6H PRN PRN Reason: Pain, Moderate(Pain Scale 4-6) Last Admin: 07/07/24 21:51 Dose: 5 mg Documented By: RENALDO Sodium Chloride (0.9 % Sodium Chloride Flush 3 Ml Syringe) 3 ml IVFLUSH QSHIFT [facility] Last Admin: 07/08/24 02:44 Dose: Not Given Documented By: RENALDO Non-Admin Reason: IV Running Trazodone HCl (Trazodone Hcl 50 Mg Tablet) 50 mg PO BEDTIME PRN PRN Reason: Sleep Last Admin: 07/07/24 21:53 Dose: 50 mg Documented By: RENALDO Zolpidem Tartrate (Zolpidem Tartrate 5 Mg Tablet) 5 mg PO BEDTIME PRN PRN Reason: Insomnia Last Admin: 07/07/24 21:51 Dose: 5 mg Documented By: RENALDO Labs 07/08/24 06:11 07/08/24 06:11 Labs: Laboratory Results - last 24 hr 07/07/24 07/07/24 07/07/24 10:39 11:05 16:42 MCV 86.1 MCH 28.3 MCHC 32.9 RDW 14.1 Plt Count 237 MPV 10.2 Immature Gran % (Auto) 4.1 H Neut % (Auto) 58.4 Lymph % (Auto) 26.1 [place] % (Auto) 8.1 Eos % (Auto) 2.7 Baso % (Auto) 0.6 Lymph # (Auto) 1.4 [place] # (Auto) 0.4 Eos # (Auto) 0.1 Baso # (Auto) 0.0 Abs Immat Gran (auto) 0.21 H Absolute Neuts (auto) 3.0 Absolute Nucleated RBC 0.000 Nucleated RBC % (auto) 0.0 aPTT Heparin Protocol Anion Gap Estim Creat Clear Calc 44.1 Estimated GFR 34 POC Glucose 261 H 211 H Random Glucose Calcium 07/07/24 07/08/24 20:14 06:11 MCV 86.9 MCH 28.4 MCHC 32.6 RDW 14.1 Plt Count 262 MPV 10.3 Immature Gran % (Auto) Neut % (Auto) Lymph % (Auto) [place] % (Auto) Eos % (Auto) Baso % (Auto) Lymph # (Auto) [place] # (Auto) Eos # (Auto) Baso # (Auto) Abs Immat Gran (auto) Absolute Neuts (auto) Absolute Nucleated RBC 0.000 Nucleated RBC % (auto) 0.0 aPTT Heparin Protocol 58.9 Anion Gap 14 Estim Creat Clear Calc 45.6 Estimated GFR 36 POC Glucose 268 H Random Glucose 143 H Calcium 9.1 Assessment and Plan (1) Deep vein thrombosis (DVT) of both lower extremities: Status: Acute Plan 53F PMH morbid obesity, diabetes, hypertension, hyperlipidemia, history of perforated diverticulitis status post colostomy in 2017, cluster B personality disorder, depression and anxiety presented with bilateral leg pain and swelling found to have acute bilateral DVTs and acute kidney injury. Acute Bilateral DVTs Likely provoked from sedentary lifestyle Continue IV heparin, follow up vascular surgery Plan for thrombectomy 07/08/24 Acute kidney injury Possibly hypovolemic, continue IV fluids, hold metformin and lisinopril So far improving slowly No signs of hydronephrosis on CT scan nephro appreciated, follow up renal artery ultrasound Diabetes Continue basal bolus insulin Depression and anxiety Continue buspirone, clonidine, sertraline Full code reason for continued hospitalization: IV fluids for ALFREDO, IV heparin for DVT Quality Stroke Does the patient have a stroke diagnosis?: No VTE Prior VTE?: No VTE Risk Level:: Medical - moderate - high VTE Device Contraindication: Treatment Not Indicated VTE Drug Contraindication: N/A - Med Ordered
--- NOTE | 2024-07-08 11:02 | P.OP_ITS ---
Operative Note Operative Note Date of Service: 07/08/24 Narrative: Operative note by [facility] Preoperative diagnosis: Deep venous thrombosis of right lower extremity Postoperative diagnosis: Same Procedure: 1 Ultrasound-guided right popliteal vein access 2. Inferior vena cavogram 3. Percutaneous transluminal venous mechanical thrombectomy (11282) 4. Plasty of right iliac vein 4. Radiologic super visual and interpretation Surgeon:Dave Bob M.D. Plastic Top Assembler: None Anesthesia: Local with moderate conscious sedation. Total intra service moderate sedation time was 78 minutes. I monitored the patient's level of consciousness and physiologic status continuously throughout the procedure Specimen: None Drains: None Estimated blood loss: 50 mL Implant: None Comorbid conditions: Morbid obesity, acute kidney injury, ruptured diverticular disease with colostomy, severe depression with sedentary lifestyle Indications: Pleasant 53-year-old female presented to the emergency room and hospital with acute on chronic DVT. Was urged by the family to come in as they noticed the extreme swelling in her right leg and inability to walk. She now presents for mechanical venous thrombectomy. The plan of care is mechanical thrombectomy of the lower extremity veins. The patient has signed the informed consent after reviewing risks, complications, benefits, and alternatives previously discussed with the patient. The patient was given the opportunity to ask any additional questions or voice any concerns. All questions were answered to the patient's satisfaction. Procedure in detail: Patient was brought to the Angiography suite prior to which a time-out was called for patient identification and site verification. The patient was placed in a prone position. Bilateral popliteal fossas were prepped out. We first access the right popliteal vein under ultrasound guidance. We then placed a percutaneous 5 [place] sheath. We were then able to traverse the clot with a Glidewire Advantage 035 wire. We brought in a trail Blazer catheter to confirmed true lumen. At this time [] units of heparin was administered. After 5 minutes of circulation time we then dilated up the tract. The Clot Triever over the wire system was then brought into position. We placed the clot triever sheath and exposed the self expanding Nitinol mesh funnel to facilitate clot removal for large-bore side port rapid aspiration. Once this was accomplished we then advanced over the wire the clot triever catheter with the coring element and braided collection bag. This was brought into the inferior vena cava up past this occlusion and extracted back. We did 4 sequential passes. The main angle of the catheter was placed at the 12:00 o'clock, 03:00 o'clock, 06:00 o'clock, and 09:00 o'clock positions. After each pass had been completed, large amount of clot was removed. After each subsequent pass the clot was removed and it was flushed clear and we then brought it in again through this area. Completion venogram demonstrated an excellent result. We subsequently removed catheter wire in sheath. Pursestring suture was placed Direct pressure was held for 10 minutes. Sterile dressing was applied. Patient was brought to the recovery room with stable vitals. Interpretation of films: 1. Ultrasound was used to evaluate access site. Popliteal vein did note to have thrombus. Ultrasound was used to visualize needle entry. Image of ultrasound was saved on PACS 2. Vena cavogram demonstrated thrombus in the distal vena cava along the end attire iliofemoral system down into the popliteal vein. 3. Completion vena cavogram demonstrated resolution of clot. Conclusion: 1. Successful mechanical clot removal. 2. Anticoagulation status: Resume heparin drip immediately. Tomorrow may start oral anticoagulation. This note is constructed using voice recognition software. While every effort has been made to ensure accuracy, animal nutrition teacher errors may have been included. Thank you for allowing me to participate in the care of your patient. Yours sincerely, Dave Bob MD, FACS, R.P.V.I.
[2024-07-08] MEDS: cloNIDine HCL 0.1 MG TABLET PO ×2 (11:11→21:19)
[2024-07-08] MEDS: Empagliflozin 10 MG TABLET PO (11:11)
[2024-07-08] MEDS: Insulin Glargine,Hum.rec.anlog 100 UNIT/ML 10 ML VIAL 42 UNIT SUBCUT ×2 (11:12→21:21)
[2024-07-08] MEDS: busPIRone HCl 5 MG TABLET PO ×2 (11:12→21:19)
[2024-07-08] MEDS: oxyCODONE HCl Immed Release 5 MG TABLET PO ×2 (11:12→16:06)
[2024-07-08] MEDS: 0.9 % Sodium Chloride Flush 3 ML SYRINGE IVFLUSH ×3 (11:13→21:21)
[2024-07-08 11:18] LABS: Glucose, Whole Blood 86 mg/dL (60-115)
--- NOTE | 2024-07-08 12:57 | P.PNNP_ITS ---
Subjective Subjective Date of Service: 07/08/24 Interval history: No complaints, for vascular surgery today Physical Exam 2 Vital Signs: Vital Signs: Last Vital Signs Temp 97.8 F 07/08/24 12:26 Pulse 74 07/08/24 12:26 Resp 18 07/08/24 12:26 BP 154/82 H 07/08/24 11:33 Pulse Ox 97 07/08/24 12:26 O2 Del Method Room Air 07/08/24 12:26 O2 Flow Rate 2 07/08/24 09:40 FiO2 34 07/08/24 09:55 BMI result Body Mass Index 43.0 Const: General: no acute distress Orientation/consciousness: patient oriented x3 Eyes: EOM: EOMs intact bilaterally Resp: Auscultation: diminished lung sounds Cardio: Rate: regular rate GI: Palpation (GI): Soft to palpation Neuro: General: patient oriented x3 Objective Data Labs 07/08/24 06:11 07/08/24 06:11 Labs: Laboratory Results - last 24 hr 07/07/24 07/07/24 07/08/24 16:42 20:14 06:11 WBC 6.4 RBC 4.44 Hgb 12.6 Hct 38.6 MCV 86.9 MCH 28.4 MCHC 32.6 RDW 14.1 Plt Count 262 MPV 10.3 Absolute Nucleated RBC 0.000 Nucleated RBC % (auto) 0.0 aPTT Heparin Protocol 58.9 Sodium 138 Potassium 4.5 Chloride 108 Carbon Dioxide 21 L Anion Gap 14 BUN 24 H Creatinine 1.53 H Estim Creat Clear Calc 45.6 Estimated GFR 36 POC Glucose 211 H 268 H Random Glucose 143 H Calcium 9.1 07/08/24 11:14 WBC RBC Hgb Hct MCV MCH MCHC RDW Plt Count MPV Absolute Nucleated RBC Nucleated RBC % (auto) aPTT Heparin Protocol Sodium Potassium Chloride Carbon Dioxide Anion Gap BUN Creatinine Estim Creat Clear Calc Estimated GFR POC Glucose 86 Random Glucose Calcium Microbiology Microbiology Results: Microbiology 07/04/24 18:35 Urine clean catch - Clean Catch Midstream Urine Culture - Final Strep agalactiae (Grp B) Procedures Date of Service Date of Service: 07/08/24 Assessment & Plan Assessment and plan (1) ALFREDO (acute kidney injury): Status: Acute Plan ALFREDO due to tubular injury Likely had altered autoregulation of the kidney ACEI on hold; U/A not supportive of GN/AIN Doppler renal arteries- No thrombus Complement levels pending; No RBC in U/A Serum creatinine improved/stable For vascular surgery today C/W rest of current supportive management for now Progress Note: Quality Stroke Does the patient have a stroke diagnosis?: No
[2024-07-08 15:58] LABS: Glucose, Whole Blood 235 mg/dL (60-115)
[2024-07-08] MEDS: Insulin Lispro 100 UNIT/ML 3 ML VIAL SUBCUT ×2 (16:06→21:20)
[2024-07-08] MEDS: Calcium Carbonate 750 MG TAB.CHEW PO (16:15)
[2024-07-08 20:18] LABS: Glucose, Whole Blood 262 mg/dL (60-115)
[2024-07-08] MEDS: Zolpidem Tartrate 5 MG TABLET PO (21:19)
[2024-07-08] MEDS: Melatonin 3 MG TABLET 6 MG PO (21:19)
[2024-07-08] MEDS: Apixaban 5 MG TABLET PO (21:19)
[2024-07-08] MEDS: traZODone HCL 50 MG TABLET PO (21:19)
[2024-07-08] MEDS: Morphine Sulfate 4 MG/ML CARTRIDGE 2 MG IVPUSH (21:20)
[2024-07-08 22:54] LABS: Complement C3 208 mg/dL (83-193)
[2024-07-09 03:35] VITALS: BP 132/63; PULSE 63; RESP 20; TEMP 36.3; O2SAT 96
[2024-07-09 07:07] LABS: Glucose, Whole Blood 169 mg/dL (60-115)
[2024-07-09 07:23] VITALS: BP 148/65; PULSE 63; RESP 18; TEMP 36.3; O2SAT 98
[2024-07-09] MEDS: cloNIDine HCL 0.1 MG TABLET PO (08:08)
[2024-07-09] MEDS: Empagliflozin 10 MG TABLET PO (08:08)
[2024-07-09] MEDS: busPIRone HCl 5 MG TABLET PO (08:08)
[2024-07-09] MEDS: Apixaban 5 MG TABLET PO (08:08)
[2024-07-09] MEDS: Insulin Glargine,Hum.rec.anlog 100 UNIT/ML 10 ML VIAL 42 UNIT SUBCUT (08:08)
[2024-07-09] MEDS: oxyCODONE HCl Immed Release 5 MG TABLET PO (08:08)
[2024-07-09] MEDS: Insulin Lispro 100 UNIT/ML 3 ML VIAL SUBCUT ×2 (08:08→11:48)
[2024-07-09] MEDS: 0.9 % Sodium Chloride Flush 3 ML SYRINGE IVFLUSH (08:09)
[2024-07-09 08:12] LABS: Hematocrit 39.2 % (37.0-47.0); Hemoglobin 12.7 g/dl (12.0-16.0); Mean Corpuscular HGB Conc 32.4 g/dl (31.0-35.0); Mean Corpuscular Hemoglobin 28.2 pg (27.0-33.0); Mean Corpuscular Volume 86.9 fL (80.0-98.0); Mean Platelet Volume 10.2 fL (9.4-12.3); NRBC Pct Auto 0.4 /100WBC (0.0-0.2); Platelet Count 243 X10*3/uL (160-400); Red Blood Count 4.51 X10*6/uL (4.20-5.50); Red Cell Distribution Width 14.5 % (11.0-16.0); White Blood Count 5.4 X10*3/uL (4.8-10.8)
[2024-07-09 08:25] LABS: Anion Gap 14 (12-20); Blood Urea Nitrogen 22 mg/dL (9-16); Calcium 9.9 mg/dL (8.4-10.2); Carbon Dioxide 21 mmol/L (22-29); Chloride 108 mmol/L (96-108); Creatinine Clr Calc Pharmacy 49.1; Estimated Glomerular Filt Rate 39; Glucose Random 189 mg/dL (60-115); Potassium 4.7 mmol/L (3.3-5.1); Sodium 138 mmol/L (135-145)
--- NOTE | 2024-07-09 08:56 | P.PNNP_ITS ---
Subjective Subjective Date of Service: 07/09/24 Interval history: Events noted No complaints, Physical Exam 2 Vital Signs: Vital Signs: Last Vital Signs Temp 97.4 F 07/09/24 07:23 Pulse 63 07/09/24 07:23 Resp 18 07/09/24 07:23 BP 148/65 H 07/09/24 07:23 Pulse Ox 98 07/09/24 07:23 O2 Del Method Room Air 07/09/24 07:23 O2 Flow Rate 2 07/08/24 09:40 FiO2 34 07/08/24 09:55 BMI result Body Mass Index 43.0 Const: General: no acute distress Orientation/consciousness: patient oriented x3 Eyes: EOM: EOMs intact bilaterally Neck: Neck: Yes supple Resp: Auscultation: diminished lung sounds Cardio: Rate: regular rate GI: Palpation (GI): Soft to palpation Neuro: General: patient oriented x3 Extrem: General: Yes edema Objective Data Labs 07/09/24 07:52 07/09/24 07:52 Labs: Laboratory Results - last 24 hr 07/07/24 07/08/24 07/08/24 06:08 11:14 15:42 WBC RBC Hgb Hct MCV MCH MCHC RDW Plt Count MPV Absolute Nucleated RBC Nucleated RBC % (auto) Sodium Potassium Chloride Carbon Dioxide Anion Gap BUN Creatinine Estim Creat Clear Calc Estimated GFR POC Glucose 86 235 H Random Glucose Calcium Complement C3 208 H Complement C4 30 07/08/24 07/09/24 07/09/24 20:14 07:02 07:52 WBC 5.4 RBC 4.51 Hgb 12.7 Hct 39.2 MCV 86.9 MCH 28.2 MCHC 32.4 RDW 14.5 Plt Count 243 MPV 10.2 Absolute Nucleated RBC 0.020 H Nucleated RBC % (auto) 0.4 H Sodium 138 Potassium 4.7 Chloride 108 Carbon Dioxide 21 L Anion Gap 14 BUN 22 H Creatinine 1.42 H Estim Creat Clear Calc 49.1 Estimated GFR 39 POC Glucose 262 H 169 H Random Glucose 189 H Calcium 9.9 D Complement C3 Complement C4 Microbiology Microbiology Results: Microbiology 07/04/24 18:35 Urine clean catch - Clean Catch Midstream Urine Culture - Final Strep agalactiae (Grp B) Procedures Date of Service Date of Service: 07/09/24 Assessment & Plan Assessment and plan (1) ALFREDO (acute kidney injury): Status: Acute Plan ALFREDO due to tubular injury Likely had altered autoregulation of the kidney ACEI on hold; U/A not supportive of GN/AIN Doppler renal arteries- No thrombus Resistive indices reported as normal. No need for further imaging Complement levels pending; No RBC in U/A Serum creatinine improved/stable C/W rest of current supportive management for now Time Spent With Patient Time: Total time managing care of this patient today ____ minutes. Progress Note: Quality Stroke Does the patient have a stroke diagnosis?: No
--- NOTE | 2024-07-09 09:02 | HO.VASCPN ---
Subjective Subjective Date of Service: 07/09/24 Interval history: Radha is doing well this morning she is eating and drinking well. She states she normally does not sleep well and has not been sleeping well here. She states she has a little soreness in her knee, mostly when she is walking. She has been walking without any difficulties. She has no concerns this morning. Physical Exam Vital Signs: Vital Signs: Last Vital Signs Temp 97.4 F 07/09/24 07:23 Pulse 63 07/09/24 07:23 Resp 18 07/09/24 07:23 BP 148/65 H 07/09/24 07:23 Pulse Ox 98 07/09/24 07:23 O2 Del Method Room Air 07/09/24 07:23 O2 Flow Rate 2 07/08/24 09:40 FiO2 34 07/08/24 09:55 BMI result Body Mass Index 43.0 Const: General: comfortable and no acute distress Orientation/consciousness: patient oriented x3 HEENT: Ears: hearing grossly normal bilaterally Resp: Effort & Inspection: normal respiratory effort and able to speak in complete sentences Auscultation: clear to auscultation bilaterally Cardio: Rate: regular rate Rhythm: regular rhythm Heart sounds: S1 normal heart sound present and S2 normal heart sound present Bruits: no abdominal aortic bruits, no carotid bruits, no femoral bruits and no renal bruits GI: Palpation (GI): No Abdominal aortic bruit present Neuro: General: patient oriented x3 Cranial nerves: Yes CN's II-XII intact bilaterally Progress Note: A&P Assessment and plan (1) Deep vein thrombosis (DVT) of both lower extremities: Status: Acute Assessment and Plan: Radha is status post thrombectomy of bilateral lower extremities from yesterday. She has been ambulating with the assistance, and states she is having some slight discomfort in the knee, but it is tolerable. She is eating and drinking well. We believe that she is ready for discharge from a vascular standpoint. We will have her follow up in our office in 2 weeks. If there are any questions or concerns, please do not hesitate to reach out to us. Time Spent With Patient Time: Total time managing care of this patient today ____ minutes. Procedures Date of Service Date of Service: 07/09/24 Quality Stroke Does the patient have a stroke diagnosis?: No VTE Prior VTE?: No VTE Risk Level:: Medical - moderate - high VTE Device Contraindication: Treatment Not Indicated VTE Drug Contraindication: N/A - Med Ordered
--- NOTE | 2024-07-09 09:36 | PM.DS ---
DS: Providers Provider Date of Service: 07/09/24 Date of admission: 07/03/24 18:31 Date of discharge: 07/09/24 Primary care physician: Ben Golud MD Consults: 07/03/24 16:58 Consult to Vascular Surgery Stat Consulting Provider: [facility] Reason for consultation: bilateral occlusive DVTs Has provider been notified: Yes 07/06/24 10:05 Consult to Nephrology Routine Consulting Provider: [facility] Reason for consultation: ALFREDO, ?okay for thrombectomy/angio DS: Diagnosis Discharge Diagnosis (1) Deep vein thrombosis (DVT) of both lower extremities: Status: Acute DS: Summary Hospital Course Hospital Course: From initial hpi: 53-year-old female with a PMH significant for insulin-dependent type 2 diabetes, HTN, HLD, hx of perforated diverticulitis s/p colostomy in 2017, cluster B personality disorder, anxiety, and depression who presents to the ED for evaluation of worsening bilateral leg pain x2 weeks. Pt reports has been experiencing intermittent leg pain for the past few months, usually presenting unilaterally and alternating between left and right leg. Pt reports had difficulty walking and sleeping due to the pain and discomfort. Has chronic numbness and tingling in extremities around baseline. Some nausea but no vomiting. Reports had liquid stool in ostomy bag for a day or 2 last week, and again this week on Saturday and Saturday. Reports has been eating and drinking normally. Denies polyuria, dysuria, or anuria. Pt reports significant hx of depression and states has been sedentary for the past 1-2 years. Pt lives alone and has states does not like to leave the house and instead spends a great deal of time on her couch watching TV. Pt was ?forced? by her family to seek evaluation today at the ED. denies fever, chills, nausea, vomiting, abdominal pain. No chest pain/pressure, palpitations. Denies shortness or breath or difficulty breathing. Chronic CABRERA at baseline. In the ED pt was tachycardic up to 106 and hypertensive up to 179/65. Labs were significant for BUN 28 and creatinine 2.48 (elevated from 1.00 on 12/04/2022). No leukocytosis. Stable H&H. No significant electrolyte abnormalities. Venous duplex ultrasound positive for extensive occlusive DVT of right leg, and positive for partially occlusive DVT of left leg. ED contacted vascular surgery who recommend CTA of abdomen and pelvis for better visualization of DVT, but was unable to obtain due to ALFREDO. Pt was treated with IVF and started on a heparin drip. Pt will be admitted to the hospital for treatment and further evaluation of acute bilateral DVTs as well as ALFREDO. Hospital course: Patient was admitted for acute bilateral DVTs. She was treated with IV heparin. Plan was for thrombectomy but due to acute kidney injury was not done right away. Was patient was given IV fluids and had slow improvement in acute kidney injury, at discharge creatinine is about 1.4, lisinopril has been held and switch to amlodipine for hypertension, should continue to follow creatinine as outpatient. Once creatinine improved somewhat was seen by Nephrology and decision made to proceed with thrombectomy. This was done successfully on 06/1924 for right-sided DVT as this was the higher clot burden. Patient was transitioned to apixaban which she will continue for at least 3 months and follow up with Hematology as unclear if this is provoked DVT from sedentary lifestyle versus unprovoked. For diabetes was continued on basal bolus insulin. For depression and anxiety was continued on buspirone, clonidine, sertraline. For morbid obesity weight loss is encouraged. Time Attestation Discharge Coordination Time (in mins): 33 Quality: Safe Use of Opioids Does Pt have an Active Cancer Diagnosis on the Problem List?: No Quality: Stroke Does the patient have a stroke diagnosis?: No Physical Exam Vital Signs: Vital Signs: Last Vital Signs Temp 97.4 F 07/09/24 07:23 Pulse 63 07/09/24 07:23 Resp 18 07/09/24 07:23 BP 148/65 H 07/09/24 07:23 Pulse Ox 98 07/09/24 07:23 O2 Del Method Room Air 07/09/24 07:23 O2 Flow Rate 2 07/08/24 09:40 FiO2 34 07/08/24 09:55 BMI result Body Mass Index 43.0 Const: General: comfortable and no acute distress Orientation/consciousness: patient oriented x3 HEENT: Ears: hearing grossly normal bilaterally Resp: Effort & Inspection: normal respiratory effort and able to speak in complete sentences Auscultation: clear to auscultation bilaterally Cardio: Rate: regular rate Rhythm: regular rhythm Heart sounds: S1 normal heart sound present and S2 normal heart sound present Bruits: no abdominal aortic bruits, no carotid bruits, no femoral bruits and no renal bruits GI: Palpation (GI): No Abdominal aortic bruit present Neuro: General: patient oriented x3 Cranial nerves: Yes CN's II-XII intact bilaterally DS: Data Data Completed and Pending Labs on day of discharge: Laboratory Results - last 24 hr 07/07/24 07/08/24 07/08/24 06:08 11:14 15:42 WBC RBC Hgb Hct MCV MCH MCHC RDW Plt Count MPV Absolute Nucleated RBC Nucleated RBC % (auto) Sodium Potassium Chloride Carbon Dioxide Anion Gap BUN Creatinine Estim Creat Clear Calc Estimated GFR POC Glucose 86 235 H Random Glucose Calcium Complement C3 208 H Complement C4 30 07/08/24 07/09/24 07/09/24 20:14 07:02 07:52 WBC 5.4 RBC 4.51 Hgb 12.7 Hct 39.2 MCV 86.9 MCH 28.2 MCHC 32.4 RDW 14.5 Plt Count 243 MPV 10.2 Absolute Nucleated RBC 0.020 H Nucleated RBC % (auto) 0.4 H Sodium 138 Potassium 4.7 Chloride 108 Carbon Dioxide 21 L Anion Gap 14 BUN 22 H Creatinine 1.42 H Estim Creat Clear Calc 49.1 Estimated GFR 39 POC Glucose 262 H 169 H Random Glucose 189 H Calcium 9.9 D Complement C3 Complement C4 Discharge Plan Discharge Anticipated Discharge Date/Time: 07/09/24 09:33 Patient Disposition: Home, Self-Care Discharge Diagnosis: dvt, alfredo Referrals: Ben Gould [Other] - 1 Week Isis Ferrari MD [Physician] - 1 Week (DVT) Discharge Medications: New oxycodone 5 mg Tablet 5 mg PO Q4H PRN (Reason: Pain, Moderate(Pain Scale 4-6)) Qty: 10 0RF Rx Instructions: Partial Fill upon patient request. Eliquis 5 mg Tablet 5 mg PO BID Qty: 180 0RF amlodipine 5 mg tablet 5 mg PO DAILY Qty: 90 0RF Continued buspirone 5 mg tablet 5 mg PO BID clonidine HCl 0.1 mg tablet 0.1 mg PO BID insulin lispro 100 unit/mL insulin pen See Protocol subcut TIDAC Protocol: Insulin Correction Scale Less than or equal to 110 ---- Give (units): 0 111 to 150 Give (units): 0 151 to 200 Give (units): 2 201 to 250 Give (units): 4 251 to 300 Give (units): 6 301 to 350 Give (units): 8 Greater than 350 Give (units): 10 Call MD if Blood Glucose > : 350 Jardiance 10 mg tablet 10 mg PO DAILY Trulicity 1.5 mg/0.5 mL pen injector 1.5 mg subcut QWEEK metformin 500 mg tablet 500 mg PO BID insulin glargine [Lantus U-100 Insulin] 100 unit/mL solution 60 unit subcut BID atorvastatin 10 mg tablet 10 mg PO BEDTIME (DME) colostomy bags Misc See Rx Instructions .ROUTE .MEDSUPPLY Qty: 5 Rx Instructions: As directed trazodone 50 mg tablet 50 mg PO BEDTIME PRN (Reason: Sleep) Discontinued lisinopril 20 mg tablet 20 mg PO DAILY Discharge Orders: Discharge Order (Routine); Ordered 07/09/24 Ordered By: Murray Rangel Diet: Diabetic diet Activity on Discharge: As tolerated Stand Alone Forms: Patient Portal Discharge page Print Language: Romansh Care Plan Goals: recovery Health Concerns: alfredo, htn, dvt Plan of Treatment: michelle - follow up with hematology to determine duration of therapy lisinopril changed to amlodipine due to ALFREDO Assessment: see above
--- NOTE | 2024-07-09 09:42 | MHC.CM.PN ---
Patient has been medically cleared for dc to home today, self care.
--- NOTE | 2024-07-09 10:34 | MHC.CM.PN ---
[place] [facility] at 1:[place]; RN is aware and has voucher.
[2024-07-09 11:27] VITALS: BP 130/76; PULSE 59; RESP 20; TEMP 36.4; O2SAT 96
[2024-07-09 11:38] LABS: Glucose, Whole Blood 277 mg/dL (60-115)
[2024-07-09 13:12] LABS: ACT 214 Celite s (79-173)
[2024-07-09 13:12] LABS: ACT 115 Celite s (79-173)
== END 2024-07-09 14:16 | disposition home or self-care (01) | DRG 182 ==
LOC: HO.ED 17:35 → HO.EDOVER 18:50 → HO.IMC 07-04 11:37
PROVIDERS: Physician Assistant; Physician Assistant Surgical; Student in an Organized Health Care Education/Training Program; Surgery Vascular Surgery; Admitting Provider Student in an Organized Health Care Education/Training Program; Emergency Provider Emergency Medicine; PCP Internal Medicine; Visit Provider Internal Medicine
PROC: 04CM3ZZ Extirpation of Matter from Right Popliteal Artery, Percutaneous Approach (ICD-10-PCS; principal; 2024-07-08 07:30)
DX: I82.413 Acute embolism and thrombosis of femoral vein, bilateral (principal); N17.9 Acute kidney failure, unspecified; E11.65 Type 2 diabetes mellitus with hyperglycemia; Z68.41 Body mass index [BMI] 40.0-44.9, adult; F31.9 Bipolar disorder, unspecified; F32.A Depression, unspecified; F17.210 Nicotine dependence, cigarettes, uncomplicated; E86.1 Hypovolemia; E66.01 Morbid (severe) obesity due to excess calories; Z71.6 Tobacco abuse counseling; Z79.4 Long term (current) use of insulin; Z79.84 Long term (current) use of oral hypoglycemic drugs; Z79.85 Long-term (current) use of injectable non-insulin antidiabetic drugs; Z79.899 Other long term (current) drug therapy
CPT/HCPCS: 36415; 37187; 72100; 72170; 74176; 76775; 80048; 80053; 81001; 82565; 82570; 82947; 83735; 83935; 84300; 85025; 85027; 85347; 85610; 85730; 86160; 87086; 87147; 93970; 93975; 99152; 99153; 99285; C1725; C1757; C1769; C1887; C1894; J1644; J2250; J2270; J3010; J3475; J7120

== ENCOUNTER → 2024-07-03 11:45 | Outpatient (BNV) | payer OTHER, SELFPAY | PROVIDERS: Visit Provider Radiology Diagnostic Radiology | DX: K57.30 Diverticulosis of large intestine without perforation or abscess without bleeding (principal); M79.606 Pain in leg, unspecified; M54.50 Low back pain, unspecified; R10.2 Pelvic and perineal pain | CPT/HCPCS: 72100; 72170; 74176; 93970 ==

== ENCOUNTER 2024-07-03 18:31 | Outpatient (BNV) | payer OTHER, SELFPAY | END 2024-07-06 17:29 | PROVIDERS: Admitting Provider Student in an Organized Health Care Education/Training Program; Emergency Provider Emergency Medicine; Visit Provider Radiology Diagnostic Radiology | DX: I82.413 Acute embolism and thrombosis of femoral vein, bilateral (principal) | CPT/HCPCS: 93975 ==

== ENCOUNTER → 2024-07-03 18:31 | Outpatient (BNV) | payer OTHER, SELFPAY | PROVIDERS: Admitting Provider Student in an Organized Health Care Education/Training Program; Emergency Provider Emergency Medicine; Visit Provider Student in an Organized Health Care Education/Training Program | DX: I82.413 Acute embolism and thrombosis of femoral vein, bilateral (principal) | CPT/HCPCS: 99232; 99233; 99239 ==

== ENCOUNTER → 2024-07-03 18:31 | Outpatient (BNV) | payer OTHER, SELFPAY | PROVIDERS: Admitting Provider Student in an Organized Health Care Education/Training Program; Emergency Provider Emergency Medicine; Visit Provider Internal Medicine Nephrology | DX: N17.9 Acute kidney failure, unspecified (principal) | CPT/HCPCS: 99223; 99232 ==

== ENCOUNTER → 2024-07-03 18:31 | Outpatient (BNV) | payer OTHER, SELFPAY | PROVIDERS: Admitting Provider Student in an Organized Health Care Education/Training Program; Emergency Provider Emergency Medicine; Visit Provider Surgery Vascular Surgery | DX: I82.413 Acute embolism and thrombosis of femoral vein, bilateral (principal) | CPT/HCPCS: 37187; 37248; 76937; 99152; 99222; 99232 ==

== ENCOUNTER → 2024-07-17 09:30 | Outpatient (BNV) | payer OTHER, SELFPAY | PROVIDERS: PCP Internal Medicine; Visit Provider Internal Medicine Medical Oncology | DX: I82.401 Acute embolism and thrombosis of unspecified deep veins of right lower extremity (principal); I82.402 Acute embolism and thrombosis of unspecified deep veins of left lower extremity | CPT/HCPCS: 99204 ==

== ENCOUNTER 2024-07-22 11:32 | Outpatient (AMB) | payer OTHER, SELFPAY ==
--- NOTE | 2024-07-22 12:12 | HO.NEPHOV ---
Vital Signs 07/22/24 12:15 Height 5 ft Weight 204 lb BMI 39.8 BP 108/70 Blood Pressure Location Rt brachial Position Sitting Pulse 92 Pulse Source Pulse Oximeter Pulse Oximetry (%) 96 Oxygen Delivery Method Room Air Intake Visit Reasons: [facility] [place] [facility] per Alfonso Agent Based Modeler Required: No Accompanied by: Self / Same As Patient Allergies stoma pace Allergy (Unknown, Uncoded 07/17/24 10:10) severe rash/Itch HPI Comments Details: 53-year-old female with type 2 diabetes, HTN, HLD, hx of perforated diverticulitis s/p colostomy in 2017, cluster B personality disorder, anxiety, and depression who recently presented to the ER for evaluation of worsening bilateral leg pain x2 weeks. She had been experiencing intermittent leg pain for the past few months. She denied polyuria, dysuria, or anuria. Pt reports significant hx of depression and states has been sedentary for the past 1-2 years. Pt lives alone and has states does not like to leave the house and instead spends a great deal of time on her couch watching TV. She denied fever, chills, nausea, vomiting, abdominal pain with no chest pain/pressure, palpitations. She has chronic CABRERA at baseline but has been having more shortness or breath now. In the ER pt was tachycardic up to 106 and hypertensive up to 179/65. Labs were significant for BUN 28 and creatinine 2.48 (elevated from 1.00 on 12/04/2022). No leukocytosis. Stable H&H. No significant electrolyte abnormalities. Venous duplex ultrasound positive for extensive occlusive DVT of right leg, and positive for partially occlusive DVT of left leg. ER contacted vascular surgery who recommended CTA of abdomen and pelvis for better visualization of DVT. Pt was treated with IVF and started on a heparin drip. She was admitted to the hospital for treatment and further evaluation of acute bilateral DVTs as well as ALFREDO. She eventually thrombectomy . She was given IV fluids and had slow improvement in acute kidney injury, at discharge creatinine is about 1.4, lisinopril has been held and switch to amlodipine for hypertension. Patient was transitioned to apixaban which she will continue for at least 3 months and follow up with Hematology as unclear if this is provoked DVT (sedentary lifestyle versus unprovoked). She was seen in follow up for her ALFREDO today. Her ostomy output is at baseline. [facility] Medical History (Updated 07/22/24 @ 13:03 by Basilio Bearden MD) History of herpes genitalis GERD (gastroesophageal reflux disease) Anxiety and depression HTN (hypertension) Elevated cholesterol Left sided abdominal pain Boils of multiple sites COVID-[address] Diverticular disease Diabetes mellitus Depression Morbid obesity Surgical History Hx of colonoscopy Hx of section History of colon resection Family History Mother Stroke Cardiac arrest Father Cardiac arrest Diabetes Brother Diabetes Social History Household Members: Family Household Members Other:: Sister Housing: Apartment Are you a primary urgent care technician to a significant other at home: No Do you presently have visiting nurse or other home services: No Alcohol intake: current Alcohol intake frequency: does not drink Patient Tobacco Use Status: Current someday Tobacco user Tobacco use type: Cigarette Years Smoked: 25 Second Hand Smoke Exposure: Yes (boyfriend) Substance Use Type: Marijuana Advance Directives Date on File: 07/23/16 service: No Review of Systems Const All systems reviewed & are unremarkable except as noted in HPI and below Physical Exam Vital Signs: Last Vital Signs Pulse 92 07/22/24 12:15 BP 108/70 07/22/24 12:15 Pulse Ox 96 07/22/24 12:15 Oxygen Delivery Method Room Air 07/22/24 12:15 BMI result Body Mass Index 39.8 Const General: comfortable and no acute distress Orientation/consciousness: patient oriented x3 HEENT Head: Yes normocephalic Mouth: Normal oral and palatal mucosa present Eyes EOM: EOMs intact bilaterally Neck Neck: Yes supple Resp Auscultation: clear to auscultation bilaterally Cardio Jugular venous distension: no JVD Rate: regular rate GI Palpation (GI): Soft to palpation Auscultation: normal bowel sounds General: Yes no CVA tenderness Back/Spine/Pelvis Back: no CVA tenderness Skin General skin exam: no rashes or lesions noted Neuro General: patient oriented x3 and moves all extremities Extrem General: Yes no pedal edema Results Reviewed Nephrology Results: Hgb 12.7 g/dl (12.0-16.0) 07/09/24 WBC 5.4 X10*3/uL (4.8-10.8) 07/09/24 Plt Count 243 X10*3/uL (160-400) 07/09/24 Sodium 138 mmol/L (135-145) 07/09/24 Potassium 4.7 mmol/L (3.3-5.1) 07/09/24 Chloride 108 mmol/L (96-108) 07/09/24 Carbon Dioxide 21 mmol/L (22-29) L 07/09/24 BUN 22 mg/dL (9-16) H 07/09/24 Creatinine 1.42 mg/dL (0.5-1.4) H 07/09/24 Calcium 9.9 mg/dL (8.4-10.2) 07/09/24 Urine Protein Trace mg/dL (Neg-Trace) 07/04/24 Urine Creatinine 33.86 mg/dL 07/04/24 Renal US 07/07/24 Assessment & Plan Assessment & Plan (1) Deep vein thrombosis (DVT) of both lower extremities: Code(s): I82.403 - Acute embolism and thrombosis of unspecified deep veins of lower extremity, bilateral Category: Medical Qualifiers: Affected thrombotic vein of extremity: femoral Chronicity: acute Qualified Code(s): I82.413 - Acute embolism and thrombosis of femoral vein, bilateral (2) Shortness of breath: Code(s): R06.02 - Shortness of breath Category: Medical (3) ALFREDO (acute kidney injury): Code(s): N17.9 - Acute kidney failure, unspecified Category: Medical (4) CKD stage 3a, GFR 45-59 ml/min: Code(s): N18.31 - Chronic kidney disease, stage 3a Category: Medical (5) HTN (hypertension): Code(s): I10 - Essential (primary) hypertension Category: Medical Qualifiers: Hypertension type: primary hypertension Qualified Code(s): I10 - Essential (primary) hypertension Plan ALFREDO due to tubular injury Likely had altered autoregulation of the kidney ACEI on hold; U/A not supportive of GN/AIN Doppler renal arteries- No thrombus Complement levels OK ; No RBC in U/A Serum creatinine improved/stable C/W rest of current supportive management for now Pulmonary consult( requested)- SOBE ? PE vs COPD Labs ordered 3 weeks; F/U one month Orders: Orders Electrolytes 1 Month N17.9 - Acute kidney failure, unspecified Calcium 1 Month N17.9 - Acute kidney failure, unspecified Blood Urea Nitrogen 1 Month N17.9 - Acute kidney failure, unspecified Protein Creatinine Ratio, Ur 1 Month N17.9 - Acute kidney failure, unspecified Creatinine 1 Month N17.9 - Acute kidney failure, unspecified Referrals Pulmonology Referral I82.413 - Acute embolism and thrombosis of femoral vein, bilateral, R06.02 - Shortness of breath Coding Level of Care Code Est Pt Level 4 (55285) Diagnoses Deep vein thrombosis (DVT) of both lower extremities I82.413 Affected thrombotic vein of extremity: femoral Chronicity: acute Shortness of breath R06.02 ALFREDO (acute kidney injury) N17.9 CKD stage 3a, GFR 45-59 ml/min N18.31 Primary hypertension I10 Hypertension type: primary hypertension
[2024-07-22 12:15] VITALS: BP 108/70; PULSE 92; O2SAT 96; BMI 39.8
--- OUTSIDE RECORDS SUMMARY | 2024-07-22 14:00 | XMS_ITS | Encounter Summary ---
Author Organization [facility], Address [address] [place] [address] Phone Care Team Providers Care Orthotics Assistant Name Role Phone Ben Gould Primary Care Provider Encounter Details Date Type Department Care Team (Late st Contact Info) Description 01/01/2024 Documentation Only [facility], [address] [place] [address] [place] [address] [place] [address] Social History Tobacco Use Types Packs/Day Years Used Date Smoking Tobacco: Never Assessed Comments Unknown Sex and Gender Information Value Date Recorded Sex Assigned at Not on file Legal Sex Female 11:42 AM EDT Gender Identity Not on file Sexual Orientation Not on file documented as of this encounter Plan of Treatment Not on file documented as of this encounter Visit Diagnoses Not on filedocumented in this encounter Care Teams Orthotics Assistant Relationship Specialty Start Date End Date Ben Gould [address] [place] [id number] PCP - General 01/01/24 documented as of this encounter
--- OUTSIDE RECORDS SUMMARY | 2024-07-22 14:00 | XMS_ITS | Clinical Summary ---
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 Dental caries 03/21/2023 Periodontal disease 03/21/2023 Social History Tobacco Use Types Packs/Day Years Used Date Smoking Tobacco: Former Cigarettes Passive Smoke Exposure: Past Smokeless Tobacco: Former Tobacco Cessation:Counseling Given: No Alcohol Use Standard Drinks/Week Comments Defer 0 (1 standard drink = 0.6 oz pur e alcohol) Comments Unknown Sex and Gender Information Value Date Recorded Sex Assigned at Female 03/19/2022 10:20 AM EDT Legal Sex Female 10:20 AM EDT Gender Identity Choose not to disclose 10:20 AM EDT Sexual Orientation Choose not to disclose 2021 10:20 AM EDT Last Filed Vital Signs Vital Sign Reading Time Taken Comments Blood Pressure 140/72 12/11/2023 9:52 AM EDT Pulse - - Temperature - - Respiratory Rate - - Oxygen Saturation - - Inhaled Oxygen Concentration - - Weight - - Height - - Body Mass Index - - Plan of Treatment Health Maintenance Due Date Last Done Comments CT Colonography 1971 Colonoscopy 1971 Colorectal Cancer Screening 1971 Dental Prophylaxis 1971 Dental X-Ray: Bitewings 1971 Depression Screening 1971 FIT DNA/Cologuard 1971 FIT 1971 FOBT 1971 HIV Screening 1971 Lipid Panel 1971 SDOH Screening 1971 Sigmoidoscopy 1971 Alcohol/Substance Use Screening 1983 Family Planning (PISQ) 09/15/1986 Hepatitis C Screening 09/15/1989 Hepatitis B Vaccines (1 of 3 - 19+ 3-dose series) 09/15/1990 Pap Smear 09/15/1992 Cervical Cancer Screening 09/15/2001 HPV/Cotest 09/15/2001 Mammogram 2011 Pneumococcal Vaccine: 50+ Years (2 of 2 - PCV) 09/15/2021 01/18/2009 Zoster Vaccines (1 of 2) 09/15/2021 Dental Oral Exam 09/01/2022 03/02/2022 DTaP/Tdap/Td Vaccines (2 - T d or Tdap) 03/30/2023 03/30/2013 COVID-19 Vaccine (1 - 2023-2 5 season) 2024 Influenza Vaccine (#1) 2024 Tobacco Screening 12/10/2024 12/11/2023 Dental X-Ray: Full Mouth 03/22/2026 023, 03/02/2022 RSV Patients and Patients Aged 60 years or older (1 - 1-dose 75+ series) 09/15/2046 Pneumococcal Vaccine: Pediatrics (0 to 5 Years) and At-Risk Patients (6 to 49) Years) Aged Out 01/18/2009 No longer eligible b ased on patient's age to complete this topic HIB Vaccines Aged Out No longer eligi ble based on patient's age to complete this topic HPV Vaccines Aged Out No longer eligi ble based on patient's age to complete this topic Hepatitis A Vaccines Aged Out No long er eligible based on patient's age to complete this topic IPV Vaccines Aged Out No longer eligi ble based on patient's age to complete this topic Meningococcal Vaccine Aged Out No kurt boogie eligible based on patient's age to complete this topic RSV under 20 months Aged Out No longe r eligible based on patient's age to complete this topic Rotavirus Vaccines Aged Out No longer eligible based on patient's age to complete this topic Procedures Procedure Name Priority Date/Time Associated Diagnosis Comments PANORAMIC RADIOGRAPHIC IMAGE Routine 03/21/2023 1:00 PM EDT COMPREHENSIVE ORAL EVALUATION - NEW OR ESTABLISHED PATIENT Routine 03/02/2022 12:00 AM EDT from Last 3 Months or Most Recently Relevant to Health Maintenance Insurance [facility] [employer] STAND ADULT
--- OUTSIDE RECORDS SUMMARY | 2024-07-22 14:00 | XMS_ITS | Clinical Summary ---
Author Organization [facility], Address [address] [place] [address] [place] [address] Phone Care Team Providers Care Morgue Technician Name Role Phone Ben Gould Primary Care Provider [phone] Social History Tobacco Use Types Packs/Day Years Used Date Smoking Tobacco: Never Assessed Comments Unknown Sex and Gender Information Value Date Recorded Sex Assigned at Not on file Legal Sex Female 11:42 AM EDT Gender Identity Not on file Sexual Orientation Not on file Plan of Treatment Health Maintenance Due Date Last Done Comments Breast Cancer Screening 1971 Hepatitis B Vaccine (1 of 3 - 19+ 3-dose series) 09/15/1990 Colorectal Cancer Screening: Annual FOBT 09/15/2020 Colorectal Cancer Screening: Colonoscopy 09/15/2020 Colorectal Cancer Screening: Sigmoidoscopy 09/15/2020 Influenza Vaccine (#1) 2024 Diabetes: Hemoglobin A1C 06/30/2024 Diabetes: Ophthalmology Exam 06/30/2024 Diabetes: Pedal Pulse Checked 06/30/2024 Diabetes: Sensory Foot Exam 06/30/2024 Diabetes: Visual Foot Exam 06/30/2024 Pneumococcal Vaccine: Pediat rics (0 to 5 Years) and At-Risk Patients (6 to 64 Years) Aged Out 01/18/2009 No longer eligi ble based on patient's age to complete this topic Insurance [facility] [employer] Care Teams Morgue Technician Relationship Specialty Start Date End Date Ben Gould [address] [place] [phone] PCP - General 01/01/24
--- OUTSIDE RECORDS SUMMARY | 2024-07-22 14:00 | XMS_ITS | Encounter Summary ---
Author Organization [facility] [employer] Address [address] [facility] 7t [place] [address] Care Team Providers Care Practice Clinician Name Role Phone Unavailable Primary Care Provider Unavailabl e Reason for Visit * Reason Onset Date Comments Appointment 09/24/2022 Encounter Details Date Type Department Care Team (Late st Contact Info) Description 09/24/2022 Telephone [facility] ADULT D[facility]AL [address] [place] [address] jK CharlesTOBIAS kaye [address] [place] [address] Appointment Social History Tobacco Use Types Packs/Day Years Used Date Smoking Tobacco: Never Assessed Comments Unknown Sex and Gender Information Value Date Recorded Sex Assigned at Female 03/19/2022 10:20 AM EDT Legal Sex Female 10:20 AM EDT Gender Identity Choose not to disclose 10:20 AM EDT Sexual Orientation Choose not to disclose 2021 10:20 AM EDT documented as of this encounter Miscellaneous Notes * Telephone Encounter - Massiel Pizano - 09/24/2022 1:19 PM EDT Patient called in stating that she had all of upper teeth extracted in 02/2022 and is ready to haveher lower teeth extracted so that she may then have her dentures made . DR documented in this encounter Plan of Treatment Not on file documented as of this encounter Visit Diagnoses Not on filedocumented in this encounter
== END 2024-07-22 12:36 | disposition home or self-care (01) ==
PROVIDERS: PCP Internal Medicine; Visit Provider Internal Medicine Nephrology
DX: I82.413 Acute embolism and thrombosis of femoral vein, bilateral (principal); R06.02 Shortness of breath; N17.9 Acute kidney failure, unspecified; N18.31 Chronic kidney disease, stage 3a; I10 Essential (primary) hypertension
CPT/HCPCS: 99214

== ENCOUNTER → 2024-07-22 11:32 | Outpatient (BNVA) | payer OTHER, SELFPAY | PROVIDERS: PCP Internal Medicine; Visit Provider Internal Medicine Nephrology | DX: E11.22 Type 2 diabetes mellitus with diabetic chronic kidney disease (principal); I12.9 Hypertensive chronic kidney disease with stage 1 through stage 4 chronic kidney disease, or unspecified chronic kidney disease; I82.413 Acute embolism and thrombosis of femoral vein, bilateral; R06.02 Shortness of breath; N17.9 Acute kidney failure, unspecified; N18.31 Chronic kidney disease, stage 3a | CPT/HCPCS: 99212 ==

== ENCOUNTER 2024-07-23 14:35 | Outpatient (AMB) | payer OTHER, SELFPAY ==
--- NOTE | 2024-07-23 14:55 | MHC.OFFVIS ---
Intake Visit Reasons: 2 week follow up thrombectomy 07/08/2024 Intake Note: Patient presents for follow up thrombectomy. Patient states it has been a week since she is having trouble eating , eats 3-4 bites and feels nauseous. Shortness of breath, headaches and a rapid heartbeat. She has tingling in both feet , pain in the right thigh and back pain. Accompanied by: Self / Same As Patient Allergies stoma pace Allergy (Unknown, Uncoded 07/17/24 10:10) severe rash/Itch HPI HPI 2 week follow up thrombectomy 07/08/2024: Details: The patient is a 53-year-old female presenting for a follow-up visit after a thrombectomy of the right lower extremity performed on July 08, 2024 for DVT. The intervention was prompted by a DVT attributed to extended bed rest. The patient currently experiences pain in the leg when ambulating or standing but reports no pain when reclined. She is currently being maintained on Eliquis. She now presents for postprocedure follow-up [facility] Medical History History of herpes genitalis GERD (gastroesophageal reflux disease) Anxiety and depression HTN (hypertension) Elevated cholesterol Left sided abdominal pain Boils of multiple sites COVID-[address] Diverticular disease Diabetes mellitus Depression Morbid obesity Surgical History Hx of colonoscopy Hx of section History of colon resection Family History Mother Stroke Cardiac arrest Father Cardiac arrest Diabetes Brother Diabetes Social History Household Members: Family Household Members Other:: Sister Housing: Apartment Are you a primary attending ambulatory care to a significant other at home: No Do you presently have visiting nurse or other home services: No Alcohol intake: current Alcohol intake frequency: does not drink Patient Tobacco Use Status: Current someday Tobacco user Tobacco use type: Cigarette Years Smoked: 25 Second Hand Smoke Exposure: Yes (boyfriend) Substance Use Type: Marijuana Advance Directives Date on File: 07/23/16 service: No Review of Systems Const All systems reviewed & are unremarkable except as noted in HPI and below Reports no additional complaints ENT Reports Normal hearing present Card Denies chest pain, Denies chest pain at rest, Denies chest pain with activity and Denies pedal edema Resp Denies cough GI Denies abdominal pain Musc Denies abnormal gait, Denies muscle cramps and Denies radiating pain into limb Skin/Breast Denies skin ulcer and Denies wounds Neuro Reports Normal hearing present and Denies abnormal gait Psych Reports no additional complaints Physical Exam Const General: cooperative, healthy appearing and comfortable Orientation/consciousness: oriented to person, oriented to place and oriented to time HEENT Head: Yes normal to inspection Neck Neck: Yes normal visual inspection Carotids: no bruits Chest Chest palpation & inspection: normal inspection of the chest Resp Effort & Inspection: normal respiratory effort and able to speak in complete sentences Auscultation: clear to auscultation bilaterally, no crackles, no rales, no rhonchi and no wheezes Cardio Rate: regular rate Rhythm: regular rhythm Heart sounds: S1 normal heart sound present and S2 normal heart sound present Bruits: no carotid bruits Peripheral pulses: Peripheral pulses 2+ throughout GI Inspection: Yes normal to inspection Skin Other: Suture removed Wounds: no wounds Hair: normal Neuro General: oriented to person, oriented to place and oriented to time Cranial nerves: Yes CN's II-XII intact bilaterally and Yes Normal hearing present Cognition (Neuro): normal cognition Motor exam (neuro): 5/5 motor strength present throughout Extrem Other: venous exam: No significant superficial varicosities or spider telangiectasias, minimal edema General: No clubbing, No cyanosis and No edema Psych Appearance: grossly normal Mental Status: mental status grossly normal Speech and movement: Normal speech and movement present Assessment & Plan Assessment & Plan (1) Deep vein thrombosis (DVT) of both lower extremities: Comment: 07/08/2024 mechanical venous thrombectomy right lower extremity with plasty of right iliac vein Code(s): I82.403 - Acute embolism and thrombosis of unspecified deep veins of lower extremity, bilateral Category: Medical Qualifiers: Affected thrombotic vein of extremity: femoral Chronicity: acute Qualified Code(s): I82.413 - Acute embolism and thrombosis of femoral vein, bilateral Plan: During this visit, I discussed with the patient the ongoing management of her right lower extremity post-thrombectomy care. Emphasis was placed on the necessity of regular walking to avert further clot formation and improve circulatory health. Anticoagulation using Eliquis was reiterated as essential, and follow-up evaluations were highlighted as pivotal in determining the duration of this treatment approach. She was advised to continue her medication regimen, monitor her symptoms, and consult hematology as needed. We did discuss routine conservative measures including compression, elevation, exercise. She will follow up with us on an as-needed basis. Thank you for allowing us to assist in her care. If there are any questions or concerns please do not hesitate to contact us. Plan Patient was informed and verbally consented to the use of an ambient scribe for clinic note documentation during this visit. Patient Instructions: - Continue taking Eliquis as prescribed - Increase walking activity gradually to aid leg recovery and conditioning - Monitor for any new or worsening symptoms - Follow up with cryptologic technician technical regarding long-term anticoagulation therapy - continue conservative measures including compression, elevation, exercise. Coding Level of Care Code Est Pt Level 4 (47214) Diagnoses Deep vein thrombosis (DVT) of both lower extremities I82.413 Affected thrombotic vein of extremity: femoral Chronicity: acute
--- OUTSIDE RECORDS SUMMARY | 2024-07-23 17:57 | XMS_ITS | Clinical Summary ---
Author Organization [facility], Address [address] [place] [address] [place] [address] Phone Care Team Providers Care Siderographer Name Role Phone Ben Gould Primary Care Provider [phone] Social History Tobacco Use Types Packs/Day Years [...] topic Insurance [facility] [employer] Care Teams Siderographer Relationship Specialty Start Date End Date Ben Gould [address] [place] [phone] PCP - General 01/01/24
--- OUTSIDE RECORDS SUMMARY | 2024-07-23 17:57 | XMS_ITS | Clinical Summary ---
Author Organization [facility] Address [address] [place] [address] [address] [address] Care Team Providers Care Knife Setter Name Role Phone Unavailable Primary Care Provider [...]
--- OUTSIDE RECORDS SUMMARY | 2024-07-23 17:57 | XMS_ITS | Encounter Summary ---
Author Organization [facility], Address [address] [place] [address] Phone Care Team Providers Care Aerial Gunner Name Role Phone Ben Gould Primary Care Provider [phone] Encounter Details Date Type Department Care Team (Late st Contact Info) Description 01/01/2024 Documentation Only [facility], [address] [place] [address] Arianna ZhuMONTICELL[place], [place] [address] [place] [address] Social History Tobacco Use Types [...] on filedocumented in this encounter Care Teams Aerial Gunner Relationship Specialty Start Date End Date Ben Gould [address] [place] [id number] PCP - General 01/01/24 documented as of this encounter
--- OUTSIDE RECORDS SUMMARY | 2024-07-23 17:57 | XMS_ITS | Encounter Summary ---
Author Organization [employer] Address [address] [facility] [address]t [place] [address] Care Team Providers Care Computer Security Specialist Name Role Phone Unavailable Primary Care Provider Unavailabl e Reason for Visit * Reason Onset Date Comments Appointment 09/24/2022 Encounter Details Date Type Department Care Team (Late st Contact Info) Description 09/24/2022 Telephone [facility] ADULT D[facility] [address] [place] [address] Kj CharlesTOBIAS kaye [address] [place] [address] Appointment Social History Tobacco Use Types Packs/Day [...]
== END 2024-07-23 15:18 | disposition home or self-care (01) ==
LOC: HO.HVS 14:35
PROVIDERS: PCP Internal Medicine; Visit Provider Surgery Vascular Surgery
DX: I82.413 Acute embolism and thrombosis of femoral vein, bilateral (principal)
CPT/HCPCS: 99214

== ENCOUNTER → 2024-07-23 14:35 | Outpatient (BNVA) | payer OTHER, SELFPAY | PROVIDERS: PCP Internal Medicine; Visit Provider Surgery Vascular Surgery | DX: I82.413 Acute embolism and thrombosis of femoral vein, bilateral (principal) | CPT/HCPCS: 99212 ==

== ENCOUNTER 2024-07-31 12:32 | Outpatient (AMB) | payer OTHER, SELFPAY ==
--- NOTE | 2024-07-31 13:06 | MHC.OFFVIS ---
Vital Signs 07/31/24 13:10 Height 5 ft Weight 209 lb 7.026 oz BMI 40.9 BP 130/82 Blood Pressure Location Rt radial Position Sitting Pulse 71 Pulse Source Pulse Oximeter Pulse Oximetry (%) 98 Oxygen Delivery Method Room Air Intake Visit Reasons: Pulmonary Embolism Allergies stoma pace Allergy (Unknown, Uncoded 07/31/24 13:14) severe rash/Itch HPI Comments Details: The patient is here for pulmonary evaluation. The patient is a 53 year woman with tobacco dependency presenting with worsening shortness of breath. Apparently beginning of June the patient started developing lower extremity pain. The pain became worse not allowing her to ambulate. Her family barium to the hospital on July 03. She was found to have bilateral PE but right more than left. She was admitted to the hospital and underwent a thrombectomy. During the hospitalization she also had acute renal failure. The patient was treated. She did follow-up with Hematology. Her hypercoagulable workup is pending. She does state that her mother did have a blood clot in the brain. I do not have details about that. Otherwise she denies any other history of clotting. She does not take any hormonal therapy. Denies any trauma to the legs or incapacitation. The patient however has been very sedentary for the last several months. She does smoke cigarettes although she states that she is going to quit cold turkey. While she has been home she has been adherent to her Eliquis twice a day. She is asking how long she is going to have to take it. We did talk about 4 unprovoked events the patient does have a high risk of clotting. Therefore the duration of therapy is not flare at this time. The patient does have some dyspnea on exertion after leaving the hospital. She sometimes also feels like she is having increased heart rate. During the visit we did go for brief walking oximetry with a heart rate was about 96 beats per minute and her pulse ox 98%. Therefore, will have her undergo an echocardiogram to make sure she does not have any evidence of any pulmonary hypertension from chronic thromboembolic disease in addition to that will request a chest x-ray. She did have a CT scan of the abdomen when she was in the hospital back on the 03 of July. I did personally reviewed by her lung windows looked normal. [facility] Medical History (Updated 08/02/24 @ 22:39 by Randy Pérez MD) Dyspnea History of herpes genitalis GERD (gastroesophageal reflux disease) Anxiety and depression HTN (hypertension) Elevated cholesterol Left sided abdominal pain Boils of multiple sites COVID-[address] Diverticular disease Diabetes mellitus Depression Morbid obesity Surgical History Hx of colonoscopy Hx of section History of colon resection Family History Mother Stroke Cardiac arrest Father Cardiac arrest Diabetes Brother Diabetes Social History Household Members: Family Household Members Other:: Sister Housing: Apartment Are you a primary child care lead teacher to a significant other at home: No Do you presently have visiting nurse or other home services: No Alcohol intake: current Alcohol intake frequency: does not drink Patient Tobacco Use Status: Current someday Tobacco user Tobacco use type: Cigarette Years Smoked: 25 Second Hand Smoke Exposure: Yes (boyfriend) Substance Use Type: Marijuana Advance Directives Date on File: 07/23/16 service: No Review of Systems Const All systems reviewed & are unremarkable except as noted in HPI and below Reports no additional complaints ENT Reports Normal hearing present Card Denies chest pain, Denies chest pain at rest, Denies chest pain with activity and Denies pedal edema Resp Denies cough GI Denies abdominal pain Musc Denies abnormal gait, Denies muscle cramps and Denies radiating pain into limb Skin/Breast Denies skin ulcer and Denies wounds Neuro Reports Normal hearing present and Denies abnormal gait Psych Reports no additional complaints Physical Exam Vital Signs: Last Vital Signs Pulse 71 07/31/24 13:10 BP 130/82 07/31/24 13:10 Pulse Ox 98 07/31/24 13:10 Oxygen Delivery Method Room Air 07/31/24 13:10 BMI result Body Mass Index 40.9 Const General: cooperative, healthy appearing and comfortable Orientation/consciousness: oriented to person, oriented to place and oriented to time HEENT Head: Yes normal to inspection Neck Neck: Yes normal visual inspection Carotids: no bruits Chest Chest palpation & inspection: normal inspection of the chest Resp Effort & Inspection: normal respiratory effort and able to speak in complete sentences Auscultation: clear to auscultation bilaterally, no crackles, no rales, no rhonchi and no wheezes Cardio Rate: regular rate Rhythm: regular rhythm Heart sounds: S1 normal heart sound present and S2 normal heart sound present Peripheral pulses: Peripheral pulses 2+ throughout GI Inspection: Yes normal to inspection Skin Other: Suture removed Wounds: no wounds Hair: normal Neuro General: oriented to person, oriented to place and oriented to time Cranial nerves: Yes Normal hearing present Cognition (Neuro): normal cognition Motor exam (neuro): 5/5 motor strength present throughout Extrem General: No clubbing, No cyanosis and No edema Psych Appearance: grossly normal Mental Status: mental status grossly normal Speech and movement: Normal speech and movement present Assessment & Plan Assessment & Plan (1) Dyspnea: Code(s): R06.00 - Dyspnea, unspecified Category: Medical Qualifiers: Dyspnea type: dyspnea on exertion Qualified Code(s): R06.09 - Other forms of dyspnea (2) Deep vein thrombosis (DVT) of both lower extremities: Comment: 07/08/2024 mechanical venous thrombectomy right lower extremity with plasty of right iliac vein Code(s): I82.403 - Acute embolism and thrombosis of unspecified deep veins of lower extremity, bilateral Category: Medical Qualifiers: Affected thrombotic vein of extremity: femoral Chronicity: acute Qualified Code(s): I82.413 - Acute embolism and thrombosis of femoral vein, bilateral Plan ECHO CXR Continue anticoagulation hypercoagulable workup pending PFTs F/U 3 months Orders: Orders CA echo transthoracic complete 07/31/24 I27.20 - Pulmonary hypertension, unspecified XR chest 2V 07/31/24 R06.00 - Dyspnea, unspecified PFT pulmonary function test 3 Months R06.02 - Shortness of breath Coding Level of Care Code New Pt Level 4 (23051) Diagnoses Dyspnea on exertion R06.09 Dyspnea type: dyspnea on exertion Deep vein thrombosis (DVT) of both lower extremities I82.413 Affected thrombotic vein of extremity: femoral Chronicity: acute Time Spent (min) 36
[2024-07-31 13:10] VITALS: BP 130/82; PULSE 71; O2SAT 98; BMI 40.9
--- OUTSIDE RECORDS SUMMARY | 2024-07-31 14:06 | XMS_ITS | Clinical Summary ---
Author Organization [facility], Address [address] [place] [address] [place] [address] Phone Care Team Providers Care Dog Groomer Name Role Phone Ben Gould Primary Care Provider [phone] Social History Tobacco Use Types Packs/Day Years [...] topic Insurance [facility] [facility] MED[employer] Care Teams Dog Groomer Relationship Specialty Start Date End Date Ben Gould [address] [place] [id number] PCP - General 01/01/24
--- OUTSIDE RECORDS SUMMARY | 2024-07-31 14:06 | XMS_ITS | Clinical Summary ---
Author Organization [facility] Address [address] [place] [address] [address] [address] Care Team Providers Care Utility Spray Operator Name Role Phone Unavailable Primary Care Provider [...] older (1 - 1-dose 75+ series) 09/15/2046 HIB Vaccines Aged Out No longer eligi [...]
--- OUTSIDE RECORDS SUMMARY | 2024-07-31 14:06 | XMS_ITS | Encounter Summary ---
Author Organization [facility], Address [address] [place] [address] Phone Care Team Providers Care Superintendent Pier Name Role Phone Ben Gould Primary Care Provider [phone] Encounter Details Date Type Department Care Team (Late st Contact Info) Description 01/01/2024 Documentation Only [facility], [address] [place] [address] Arianna Zhu[place], [place] [address] [place] [address] Social History Tobacco Use Types [...] on filedocumented in this encounter Care Teams Superintendent Pier Relationship Specialty Start Date End Date Ben Gould [address] [place] [id number] PCP - General 01/01/24 documented as of this encounter
--- OUTSIDE RECORDS SUMMARY | 2024-07-31 14:06 | XMS_ITS | Encounter Summary ---
Author Organization [employer] Address [address] [facility] [address] [place] [address] Care Team Providers Care Sterile Processing Technician Name Role Phone Unavailable Primary Care Provider Unavailabl e Reason for Visit * Reason Onset Date Comments Appointment 09/24/2022 Encounter Details Date Type Department Care Team (Late st Contact Info) Description 09/24/2022 Telephone [facility] [address] [place] [address] Kj CharlesTOBIAS kaye [address] [place] [address] Appointment Social History Tobacco Use Types Packs/Day [...]
== END 2024-07-31 13:41 | disposition home or self-care (01) ==
LOC: HO.HPS 12:33
PROVIDERS: PCP Internal Medicine; Referring Provider Internal Medicine Nephrology; Visit Provider Hospitalist
DX: R06.09 Other forms of dyspnea (principal); I82.413 Acute embolism and thrombosis of femoral vein, bilateral
CPT/HCPCS: 99204

== ENCOUNTER 2024-07-31 12:32 | Outpatient (REF) | payer OTHER, SELFPAY ==
--- NOTE | ~2024-07-31 | XR_ITS ---
EXAMINATION: XR CHEST 2 VIEWS HISTORY: R06.00 - Dyspnea, unspecified COMPARISON: There are no prior studies for comparison. FINDINGS: PA and lateral views of the chest are submitted. The lungs are expanded and clear. There is no pleural effusion, pneumothorax, or pulmonary vascular congestion. The heart is normal in size. There is degenerative disc disease of the spine. XR/XR chest 2V IMPRESSION: Clear lungs. Electronically signed by: Godwin Mohamud MD 07/31/2024 02:26 PM EDT
[2024-07-31 14:00] LABS: MANUAL DIFF FLAG NO
[2024-07-31 14:04] LABS: Basophils Percent Auto 0.3 % (0-2); Eosinophils Absolute Auto 0.1 X10*3/uL (0.0-0.4); Eosinophils Percent Auto 1.3 % (0-4); Hematocrit 42.3 % (37.0-47.0); Hemoglobin 14.3 g/dl (12.0-16.0); Imm Gran Abs Auto 0.06 X10*3/uL (0.00-0.03); Imm Gran Pct Auto 0.9 % (0.0-0.4); Lymphocytes Absolute Auto 1.6 X10*3/uL (1.2-4.9); Lymphocytes Percent Auto 23.9 % (20-40); Mean Corpuscular HGB Conc 33.8 g/dl (31.0-35.0); Mean Corpuscular Volume 82.8 fL (80.0-98.0); Mean Platelet Volume 10.1 fL (9.4-12.3); Monocytes Absolute Auto 0.3 X10*3/uL (0.1-1.2); Monocytes Percent Auto 4.7 % (2-11); Neutrophils Absolute Auto 4.7 x10*3/uL (2.0-8.3); Neutrophils Percent Auto 68.9 % (45-73); Platelet Count 302 X10*3/uL (160-400); Red Blood Count 5.11 X10*6/uL (4.20-5.50); Red Cell Distribution Width 14.4 % (11.0-16.0); White Blood Count 6.9 X10*3/uL (4.8-10.8)
[2024-07-31 14:30] LABS: Alanine Aminotransferase 34 U/L (0-31); Albumin Level 4.2 g/dL (3.5-5.0); Alkaline Phosphatase 92 U/L (39-117); Anion Gap 14 (12-20); Aspartate Amino Transferase 29 U/L (5-31); Bilirubin Total 0.4 mg/dL (0.0-1.0); Blood Urea Nitrogen 10 mg/dL (9-16); Calcium 10.1 mg/dL (8.4-10.2); Carbon Dioxide 28 mmol/L (22-29); Chloride 105 mmol/L (96-108); Estimated Glomerular Filt Rate 56; Glucose Random 95 mg/dL (60-115); Potassium 4.7 mmol/L (3.3-5.1); Sodium 142 mmol/L (135-145); Total Protein 8.2 g/dL (6.5-8.0)
[2024-07-31 14:49] LABS: Creatinine Urine 98.04 mg/dL; Protein/Creatinine Ratio, Ur 0.17 (<0.2); Total Protein Urine Random 17 mg/dL (<12)
--- OUTSIDE RECORDS SUMMARY | 2024-07-31 15:17 | XMS_ITS | Encounter Summary ---
Author Organization [employer] Address [address] [facility] 7t [place] [address] Care Team Providers Care Straightening Roll Operator Name Role Phone Unavailable Primary Care Provider Unavailabl e Reason for Visit * Reason Onset Date Comments Appointment 09/24/2022 Encounter Details Date Type Department Care Team (Late st Contact Info) Description 09/24/2022 Telephone [facility] ADULT DENTAL [address] [place] [address] Kj CharlesTOBIAS kaye [address] [place] [address] Appointment Social History Tobacco Use Types Packs/Day [...]
--- OUTSIDE RECORDS SUMMARY | 2024-07-31 15:17 | XMS_ITS | Clinical Summary ---
Author Organization [employer] [facility] Address [address] [place] [address] [address] [place] [address] Care Team Providers Care Technical Product Manager Name Role Phone Unavailable Primary Care Provider [...]
--- OUTSIDE RECORDS SUMMARY | 2024-07-31 15:17 | XMS_ITS | Encounter Summary ---
Author Organization [facility], Address [address] [place] [address] Phone Care Team Providers Care Night Court Magistrate Name Role Phone Ben Gould Primary Care Provider [phone] Encounter Details Date Type Department Care Team (Late st Contact Info) Description 01/01/2024 Documentation Only [facility], [address] [place] [address] Arianna [place], [place] [address] [place] [address] Social History Tobacco Use Types [...] on filedocumented in this encounter Care Teams Night Court Magistrate Relationship Specialty Start Date End Date Ben Gould [address] [place] [phone] PCP - General 01/01/24 documented as of this encounter
--- OUTSIDE RECORDS SUMMARY | 2024-07-31 15:17 | XMS_ITS | Clinical Summary ---
Author Organization [facility], Address [address] [place] [address] [place] [address] Phone Care Team Providers Care Coke Crane Operator Name Role Phone Ben Gould Primary Care Provider [phone] Social History Tobacco Use Types Packs/Day Years [...] topic Insurance [facility] MEDICA[employer] Care Teams Coke Crane Operator Relationship Specialty Start Date End Date Ben Gould [address] [place] [id number] PCP - General 01/01/24
[2024-08-03 23:04] LABS: Cardiolipin IgG Ab <2.0 GPL-U/mL; Cardiolipin IgM Ab <2.0 MPL-U/mL
[2024-08-05 20:33] LABS: Factor V Leiden NEGATIVE
[2024-08-07 04:28] LABS: Prothrombin 20210A POSITIVE
== END 2024-07-31 12:33 | disposition home or self-care (01) ==
LOC: HO.LAB 12:32
PROVIDERS: Absent Provider Internal Medicine Medical Oncology; PCP Internal Medicine; Referring Provider Internal Medicine Nephrology; Visit Provider Hospitalist
DX: N17.9 Acute kidney failure, unspecified (principal); F32.9 Major depressive disorder, single episode, unspecified; I82.403 Acute embolism and thrombosis of unspecified deep veins of lower extremity, bilateral; R06.00 Dyspnea, unspecified; R06.09 Other forms of dyspnea; I82.413 Acute embolism and thrombosis of femoral vein, bilateral
CPT/HCPCS: 36415; 71046; 80053; 81240; 81241; 82570; 84156; 85025; 86147; 99202

== ENCOUNTER → 2024-07-31 14:03 | Outpatient (BNV) | payer OTHER, SELFPAY | PROVIDERS: Absent Provider Internal Medicine Medical Oncology; PCP Internal Medicine; Referring Provider Internal Medicine Nephrology; Visit Provider Radiology Diagnostic Radiology | DX: R06.00 Dyspnea, unspecified (principal) | CPT/HCPCS: 71046 ==

== ENCOUNTER → 2024-08-17 12:28 | Outpatient (REF) | payer OTHER, SELFPAY ==
--- NOTE | 2024-08-17 12:33 | CA_ITS ---
Transthoracic Echocardiogram Patient (Last, First, Middle): Radha Wise, Gender: Female Date of : 1970 Age: 53 Procedure Date: 08/17/2024 Procedure Type: Transthoracic Echocardiogram Location: OP Height: 152.4 cm Weight: 94.8 kg BSA: 1.90 m2 Heart Rate: 82 bpm BP: 130 / 80 mmHg Stitching Machine Operator: SB Referring MD: Randy Pérez MD Symptoms: I27.20 - Pulmonary hypertension, unspecified Study Quality: Fair ECG Rhythm: Sinus Conclusions: - The left ventricular systolic function is normal. The calculated ejection fraction is 66% by biplane method. - No obvious valvular pathology seen on this study. - There is no evidence of pulmonary hypertension. Findings Procedure Information The quality of the study was technically difficult. The study quality is limited by lung artifact. Left Ventricle Normal left ventricular cavity size. The left ventricular systolic function is normal. The calculated ejection fraction is 66% by biplane method. There is no evidence of regional wall motion abnormalities. Evidence suggests grade I (mild) diastolic dysfunction. Moderate focal hypertrophy of the basal septum. Right Ventricle Normal right ventricular cavity size and systolic function. Atria Both atria are normal in size. Aortic Valve There is a normal trileaflet aortic valve. There is no aortic valve stenosis. There is no aortic valve regurgitation. Mitral Valve There is mild mitral annular calcification. There is no mitral valve regurgitation. There is no mitral valve stenosis. Pulmonic Valve The pulmonic valve is likely normal. Tricuspid Valve There is trace tricuspid valve regurgitation. There is no evidence of pulmonary hypertension. Great Vessels The asc aorta is normal in size. Venous The inferior vena cava was not well visualized. Pericardium/Pleural There is no evidence of pericardial effusion. Prior Study Comparison No prior study available for comparison. Recommendations, Care & Conclusions No obvious valvular pathology seen on this study. Measurements 2D Linear Measurements IVSd: 0.73 0.6-0.9/0.6-1.0 cm LVIDd: 5.14 3.9-5.3/4.2-5.9 cm LVIDd Index: 2.71 2.4-3.2/2.2-3.1 cm/m2 LVIDs: 3.14 2.0-3.6 cm LVPWd: 0.82 0.7-1.1 cm LA Diam: 3.50 2.7-3.8/3.0-4.0 cm LAIDs Index: 1.84 1.5-2.3 cm/m2 LV Mass: 170.45 67-162/88-224 g LV Mass Index: 89.71 43-95/49-115 g/m2 LVOT Diam: 2.20 3.0+(-)1.3 cm 2D Systolic Function EF 4C: 63.30 >55% EF 2C: 70.20 >55% EF BiP: 66.40 >55% Mitral Valve MV Pk E: 0.63 MV PK A: 0.81 MV Decel Time: 228.00 E/A: 0.80 E'Lateral: 4.68 E'Medial: 4.57 E/E' Med: 13.70 E/E' Lat: 13.40 PHT: 67.00 MVA PHT: 3.28 Decel Howard: 2.74 Aortic Valve AoV Pk Luis Carlos: 1.04 AoV Pk Grad: 4.00 CHRISTOPHER: 3.36 LVOT LVOT Pk Luis Carlos: 0.92 LVOT Mn Luis Carlos: 0.65 LVOT VTI: 0.20 LVOT Pk Grad: 3.00 LVOT Mn Grad: 2.00 LVOT Diam: 2.20 LVOT Area: 3.80 Diastolic Function MV Pk E: 0.63 MV Pk A: 0.81 E/A: 0.80 E'Medial: 4.57 E/E' Med: 13.70 E' Laterial: 4.68 E/E' Lat: 13.40 Right Ventricle TAPSE (mm): 17.50 TVS' Luis Carlos: 10.10 Tricuspid Valve RA Press: 3.00 Great Vessels Aorta Sinus of Valsalva: 3.20 2.0-3.5 cm Ao Asc: 3.70 2.1-3.4 cm Pulmonary Valve PV Pk Luis Carlos: 1.01 Peak PV Grad: 4.00 Updated in Other Vendor System with Status of Final Jacob Velarde MD electronically signed on 08/18/2024 10:37:27 AM with status of Final
--- OUTSIDE RECORDS SUMMARY | 2024-08-17 14:07 | XMS_ITS | Encounter Summary ---
Author Organization [facility], Address [address] [place] [address] Phone Care Team Providers Care Die Cast Operator Name Role Phone Ben Gould Primary Care Provider [phone] Encounter Details Date Type Department Care Team (Late st Contact Info) Description 01/01/2024 Documentation Only [facility], [address] [place] [address] Arianna [place], [place] [address] [place] [address] Social History Tobacco Use Types [...] on filedocumented in this encounter Care Teams Die Cast Operator Relationship Specialty Start Date End Date Ben Gould [address] [place] [phone] PCP - General 01/01/24 documented as of this encounter
--- OUTSIDE RECORDS SUMMARY | 2024-08-17 14:07 | XMS_ITS | Clinical Summary ---
Author Organization [facility] [facility] Address [address] [place] [address] [address] [address] Care Team Providers Care Rubber Goods Cutter Finisher Name Role Phone Unavailable Primary Care Provider [...]
--- OUTSIDE RECORDS SUMMARY | 2024-08-17 14:07 | XMS_ITS | Clinical Summary ---
Author Organization [facility], Address [address] [place] [address] [place] [address] Phone Care Team Providers Care Ore Miner Name Role Phone Ben Gould Primary Care Provider [phone] Social History Tobacco Use Types Packs/Day Years [...] topic Insurance [facility] [employer] Care Teams Ore Miner Relationship Specialty Start Date End Date Ben Gould [address] [place] [phone] PCP - General 01/01/24
--- OUTSIDE RECORDS SUMMARY | 2024-08-17 14:07 | XMS_ITS | Encounter Summary ---
Author Organization [employer] Address [address] [facility] 7t [place] [address] Care Team Providers Care Abstract Checker Name Role Phone Unavailable Primary Care Provider Unavailabl e Reason for Visit * Reason Onset Date Comments Appointment 09/24/2022 Encounter Details Date Type Department Care Team (Late st Contact Info) Description 09/24/2022 Telephone [facility] ADULT DENTAL [address] [place] [address] Kj CharlesTOBIAS kaye [address] [place] [address] Appointment Social History Tobacco Use Types Packs/Day [...]
== END ==
LOC: HO.CARD 12:28
PROVIDERS: Visit Provider Hospitalist
DX: I27.20 Pulmonary hypertension, unspecified (principal)
CPT/HCPCS: 93306

== ENCOUNTER → 2024-08-17 12:33 | Outpatient (BNV) | payer OTHER, SELFPAY | PROVIDERS: Visit Provider Internal Medicine | DX: I42.2 Other hypertrophic cardiomyopathy (principal); I34.81 Nonrheumatic mitral (valve) annulus calcification | CPT/HCPCS: 93306 ==

== ENCOUNTER 2024-08-21 11:37 | Outpatient (AMB) | payer OTHER, SELFPAY ==
--- NOTE | 2024-08-21 11:58 | HO.NEPHOV_ITS ---
Vital Signs 08/21/24 12:01 Height 5 ft Weight 207 lb 6 oz BMI 40.5 BP 122/78 Blood Pressure Location Rt brachial Position Sitting Pulse 101 H Pulse Source Pulse Oximeter Pulse Oximetry (%) 99 Oxygen Delivery Method Room Air Intake Visit Reasons: 1 MO FU-Conf Medical Secretary Receptionist Required: No Accompanied by: Self / Same As Patient Allergies stoma pace Allergy (Unknown, Uncoded 07/31/24 13:14) severe rash/Itch HPI Comments Details: 53-year-old female with type 2 diabetes, HTN, HLD, hx of perforated diverticulitis s/p colostomy in 2017, cluster B personality disorder, anxiety, and depression who recently presented to the ER for evaluation of worsening bilateral leg pain x2 weeks. She had been experiencing intermittent leg pain for the past few months. She denied polyuria, dysuria, or anuria. Pt reports significant hx of depression and states has been sedentary for the past 1-2 years. Pt lives alone and has states does not like to leave the house and instead spends a great deal of time on her couch watching TV. She denied fever, chills, nausea, vomiting, abdominal pain with no chest pain/pressure, palpitations. She has chronic CABRERA at baseline but has been having more shortness or breath now. In the ER pt was tachycardic up to 106 and hypertensive up to 179/65. Labs were significant for BUN 28 and creatinine 2.48 (elevated from 1.00 on 12/04/2022). No leukocytosis. Stable H&H. No significant electrolyte abnormalities. Venous duplex ultrasound positive for extensive occlusive DVT of right leg, and positive for partially occlusive DVT of left leg. ER contacted vascular surgery who recommended CTA of abdomen and pelvis for better visualization of DVT. Pt was treated with IVF and started on a heparin drip. She was admitted to the hospital for treatment and further evaluation of acute bilateral DVTs as well as ALFERDO. She eventually thrombectomy . She was given IV fluids and had slow improvement in acute kidney injury, at discharge creatinine is about 1.4, lisinopril has been held and switch to amlodipine for hypertension. Patient was transitioned to apixaban which she will continue for at least 3 months and follow up with Hematology as unclear if this is provoked DVT (sedentary lifestyle versus unprovoked). She was seen in follow up for her ALFREDO today. Her ostomy output is at baseline. Her creatinine has improved [facility] Medical History (Updated 08/02/24 @ 22:39 by Randy Pérez MD) Dyspnea History of herpes genitalis GERD (gastroesophageal reflux disease) Anxiety and depression HTN (hypertension) Elevated cholesterol Left sided abdominal pain Boils of multiple sites COVID-[address] Diverticular disease Diabetes mellitus Depression Morbid obesity Surgical History Hx of colonoscopy Hx of section History of colon resection Family History Mother Stroke Cardiac arrest Father Cardiac arrest Diabetes Brother Diabetes Social History Household Members: Family Household Members Other:: Sister Housing: Apartment Are you a primary career information specialist to a significant other at home: No Do you presently have visiting nurse or other home services: No Alcohol intake: current Alcohol intake frequency: does not drink Patient Tobacco Use Status: Current someday Tobacco user Tobacco use type: Cigarette Years Smoked: 25 Second Hand Smoke Exposure: Yes (boyfriend) Substance Use Type: Marijuana Advance Directives Date on File: 07/23/16 service: No Review of Systems Const All systems reviewed & are unremarkable except as noted in HPI and below Physical Exam Vital Signs: Last Vital Signs Pulse 101 H 08/21/24 12:01 BP 122/78 08/21/24 12:01 Pulse Ox 99 08/21/24 12:01 Oxygen Delivery Method Room Air 08/21/24 12:01 BMI result Body Mass Index 40.5 Const General: comfortable and no acute distress Orientation/consciousness: patient oriented x3 HEENT Head: Yes normocephalic Mouth: Normal oral and palatal mucosa present Eyes EOM: EOMs intact bilaterally Neck Neck: Yes supple Resp Auscultation: clear to auscultation bilaterally Cardio Jugular venous distension: no JVD Rate: regular rate GI Palpation (GI): Soft to palpation Auscultation: normal bowel sounds Skin General skin exam: no rashes or lesions noted Neuro General: patient oriented x3 and moves all extremities Extrem General: Yes no pedal edema Results Reviewed Nephrology Results: Hgb 14.3 g/dl (12.0-16.0) 07/31/24 WBC 6.9 X10*3/uL (4.8-10.8) 07/31/24 Plt Count 302 X10*3/uL (160-400) 07/31/24 Sodium 142 mmol/L (135-145) 07/31/24 Potassium 4.7 mmol/L (3.3-5.1) 07/31/24 Chloride 105 mmol/L (96-108) 07/31/24 Carbon Dioxide 28 mmol/L (22-29) 07/31/24 BUN 10 mg/dL (9-16) 07/31/24 Creatinine 1.03 mg/dL (0.5-1.4) 07/31/24 Calcium 10.1 mg/dL (8.4-10.2) 07/31/24 Urine Creatinine 98.04 mg/dL 07/31/24 Protein/Creatinin Ratio 0.17 (<0.2) 07/31/24 Assessment & Plan Assessment & Plan (1) CKD stage 3a, GFR 45-59 ml/min: Code(s): N18.31 - Chronic kidney disease, stage 3a Category: Medical (2) HTN (hypertension): Code(s): I10 - Essential (primary) hypertension Category: Medical Qualifiers: Hypertension type: primary hypertension Qualified Code(s): I10 - Essential (primary) hypertension Plan ALFREDO due to tubular injury- resolved Likely had altered autoregulation of the kidney-resolved ACEI on hold; U/A not supportive of GN/AIN Doppler renal arteries- No thrombus Complement levels OK ; No RBC in U/A Serum creatinine improved/stable C/W rest of current supportive management for now Labs ordered ; F/U 3 months Orders: Orders Creatinine 3 Months I10 - Essential (primary) hypertension, N18.31 - Chronic kidney disease, stage 3a Blood Urea Nitrogen 3 Months I10 - Essential (primary) hypertension, N18.31 - Chronic kidney disease, stage 3a Electrolytes 3 Months I10 - Essential (primary) hypertension, N18.31 - Chronic kidney disease, stage 3a Coding Level of Care Code Est Pt Level 4 (04607) Diagnoses CKD stage 3a, GFR 45-59 ml/min N18.31 Primary hypertension I10 Hypertension type: primary hypertension
[2024-08-21 12:01] VITALS: BP 122/78; PULSE 101; O2SAT 99; BMI 40.5
--- OUTSIDE RECORDS SUMMARY | 2024-08-21 13:39 | XMS_ITS | Encounter Summary ---
Author Organization [facility], Address [address] [place] [address] Phone Care Team Providers Care Production Machine Shop Supervisor Name Role Phone Ben Gould Primary Care Provider [phone] Encounter Details Date Type Department Care Team (Late st Contact Info) Description 01/01/2024 Documentation Only [facility], [address] [place] [address] Arianna [place], [place] [address] [place] [address] Social History Tobacco Use Types [...] on filedocumented in this encounter Care Teams Production Machine Shop Supervisor Relationship Specialty Start Date End Date Ben Gould [address] [place] [phone] PCP - General 01/01/24 documented as of this encounter
--- OUTSIDE RECORDS SUMMARY | 2024-08-21 13:39 | XMS_ITS | Clinical Summary ---
Author Organization [facility], Address [address] [place] [address] [place] [address] Phone Care Team Providers Care Marine Designer Name Role Phone Ben Gould Primary Care Provider [phone] Social History Tobacco Use Types Packs/Day Years [...] Colonoscopy 09/15/2020 Colorectal Cancer Screening: Sigmoidoscopy 09/15/2020 Diabetes: Hemoglobin A1C 06/30/2024 Diabetes: Ophthalmology Exam 06/30/2024 Diabetes: Pedal Pulse Checked 06/30/2024 Diabetes: Sensory Foot Exam 06/30/2024 Diabetes: Visual Foot Exam 06/30/2024 Influenza Vaccine (Season Ended) 2025 Pneumococcal Vaccine: Pediat rics (0 to 5 Years) and At-Risk Patients (6 to 64 Years) Aged Out 01/18/2009 No longer eligi ble based on patient's age to complete this topic Insurance [facility] [employer] Care Teams Marine Designer Relationship Specialty Start Date End Date Ben Gould [address] [place] [phone] PCP - General 01/01/24
--- OUTSIDE RECORDS SUMMARY | 2024-08-21 13:39 | XMS_ITS | Clinical Summary ---
Author Organization [employer] [facility] Address [address] [place] [address] [address] [address] Care Team Providers Care Information Technology Analyst Name Role Phone Unavailable Primary Care Provider [...] Mass Index - - Plan of Treatment Upcoming Encounters Date Type Department Care Team (Late st Contact Info) Description 09/15/2024 10:00 AM EDT Office Visit [facility] ADULT DENTAL [address] [place], [place] [phone] Kemar Tariq, DDS [address] [place], [place] [phone] Health Maintenance Due Date Last Done Comments CT Colonography 1970 Colonoscopy 1971 Colorectal Cancer Screening 1970 Dental Prophylaxis 1971 Dental X-Ray: Bitewings 1971 Depression Screening 1970 FIT DNA/Cologuard 1971 FIT 1971 FOBT 1970 HIV Screening 1970 SDOH Screening 1970 Sigmoidoscopy 1971 Alcohol/Substance Use Screening 1983 Family Planning (PISQ) 09/15/1986 Hepatitis C Screening 09/15/1989 DTaP/Tdap/Td Vaccines (1 - Tdap) 09/15/1990 Hepatitis B Vaccines (1 of 3 - 19+ 3-dose series) 09/15/1990 Pap Smear 09/15/1992 Cervical Cancer Screening 09/15/2001 HPV/Cotest 09/15/2001 Mammogram 2011 Pneumococcal Vaccine: 50+ Years (1 of 1 - PCV) 09/15/2021 Zoster Vaccines (1 of 2) 09/15/2021 Dental Oral Exam 09/01/2022 03/02/2022 COVID-19 Vaccine (1 - 2023-2 5 season) [...] Most Recently Relevant to Health Maintenance [facility] ST[facility] ADULT
--- OUTSIDE RECORDS SUMMARY | 2024-08-21 13:39 | XMS_ITS | Encounter Summary ---
Author Organization [employer] Address [address] [facility] [address]t [place] [address] Care Team Providers Care Professional Soccer Player Name Role Phone Unavailable Primary Care Provider Unavailabl e Reason for Visit * Reason Comments Dental Pain Pt coming in with to oth pain on the lower left side. Pt states she is returning with the same concern she was here back in May for. Encounter Details Date Type Department Care Team (Late st Contact Info) Description 12/11/2023 10:00 AM EDT Office Visit [facility] ADULT DENTAL [address] [place] [address] Ynes Ren DDS [address] [place] [address] Rampant dental caries (Primary Dx) Social History Tobacco Use Types Packs/Day Years Used Date Smoking Tobacco: Former Cigarettes Passive Smoke Exposure: Past Smokeless Tobacco: Former Alcohol Use Standard Drinks/Week Comments Defer 0 (1 standard drink = 0.6 oz pur e alcohol) Comments Unknown Sex and Gender Information Value Date Recorded Sex Assigned at Female 03/19/2022 10:20 AM EDT Legal Sex Female 10:20 AM EDT Gender Identity Choose not to disclose 10:20 AM EDT Sexual Orientation Choose not to disclose 2021 10:20 AM EDT documented as of this encounter Last Filed Vital Signs Vital Sign Reading Time Taken Comments Blood Pressure 140/72 12/11/2023 9:52 AM EDT Pulse - - Temperature - - Respiratory Rate - - Oxygen Saturation - - Inhaled Oxygen Concentration - - Weight - - Height - - Body Mass Index - - documented in this encounter Progress Notes * Ynes Ren DDS - 12/11/2023 10:00 AM EDT Dental procedures in this visit [id number] - PALLIATIVE (EMERGENCY) TREATMENT OF DENTAL PAIN - MINOR PROCEDURE (Completed) Service provider: Ynes Ren DDS Billing provider: Ynes Ren DDS [id number] - INTRAORAL - PERIAPICAL FIRST RADIOGRAPHIC IMAGE (Completed) Service provider: Ynes Ren DDS Billing provider: Ynes Ren DDS [id number] - CASE PRESENTATION, DETAILED AND EXTENSIVE TREATMENT PLANNING (Completed) Service provider: Ynes Ren DDS Billing provider: Ynes Ren DDS Patient ID: Radha Wise is a 53 y.o. adult. Time Out: Timeout Date: 12/11/23, Timeout Time: 950 Location: [facility] Tooth: #20 Procedure: Emergency Verified the above with patient, assistant brand manager, and provider. Confirmed via patient's chart, intraorally and by radiographs. Help Desk Internship: not applicable Chief Complaint Patient presents with Dental Pain Pt coming in with tooth pain on the lower left side. Pt states she is returning with the same concern she was here back in May for. Medical Hx: Vitals: Blood pressure 140/72. Past Medical History: Diagnosis Date Diabetes mellitus ([facility]) Medications: Outpatient Encounter Medications as of 12/11/2023 Medication Sig Dispense Refill acetaminophen (Tylenol 8 Hour) 650 MG ER tablet Take 1 tablet (650 mg) by mouth every 8 (eight) hours if needed for moderate pain for up to 10 days. Do not crush, chew, or split. 15 tablet 0 amoxicillin (Amoxil) 500 MG capsule Take 1 capsule (500 mg) by mouth every 8 (eight) hours for 7 days. 21 capsule 0 ibuprofen 800 MG tablet Take 1 tablet (800 mg) by mouth every 8 (eight) hours if needed for mild pain for up to 10 days. 15 tablet 0 No facility-administered encounter medications on file as of 12/11/2023. Subjective: Pain: constant, moderate, severe Duration: 3 days Objective: Tooth: #20 Radiographs Taken: PA(s) Radiographic Findings: Periapical Radiolucency, complete fracture of crown tissue due to rampant caries Clinical Findings: inflammation of surrounding gingival tissue, crown fracture is complete, rampantcaries observed in all lower remaining teeth. Swelling: Tenderness and Intraoral swelling, positive to palpation. Plaque and erythematous aspect of gums is noticed. Full mouth extraction was previously treatment planned. Explained to the pt that medication is been sent to [facility], but pt needs to return for the multiple extractions, to prevent and reduce pain and discomfort Diagnosis: Rampant caries; Dental Abscess Assessment/Plan: Referred for exo Prescriptions: Amoxicillin 500 mg/tid/7 days 21 caps Ibuprofen 800 mg/tid/prn 15 tabs Tylenol 650 mg/tid/prn 15 tabs Pt tolerated procedure well, all questions answered. Dismissed in good condition. NV: exos Refrigeration Service Technician: Angie Adler/Sinai Smith Dentist: Ynes Ren DDS documented in this encounter Plan of Treatment Upcoming Encounters Date Type Department Care Team (Late st Contact Info) Description 09/15/2024 10:00 AM EDT Office Visit [facility] ADULT DENTAL [address] [place] [address] Kemar Tariq DDS [address] [place] [address] documented as of this encounter Procedures Procedure Name Priority Date/Time Associated Diagnosis Comments PALLIATIVE (EMERGENCY) TREATMENT OF DENTAL PAIN - MINOR PROCEDURE Routine 12/11/2023 10:00 AM EDT Rampant dental caries INTRAORAL - PERIAPICAL FIRST RADIOGRAPHIC IMAGE Routine 12/11/2023 10:00 AM EDT Rampant dental caries CASE PRESENTATION, DETAILED AND EXTENSIVE TREATMENT PLANNING Routine 12/11/2023 10:00 AM EDT Rampant dental caries documented in this encounter Visit Diagnoses Diagnosis Rampant dental caries- Primary documented in this encounter
--- OUTSIDE RECORDS SUMMARY | 2024-08-21 13:39 | XMS_ITS | Encounter Summary ---
Author Organization [email or web address] [facility] Address [address] [place] [address] Care Team Providers Care Watermelon Inspector Name Role Phone Unavailable Primary Care Provider Unavailabl e Reason for Visit * Reason Onset Date Comments Appointment 09/24/2022 Encounter Details Date Type Department Care Team (Late st Contact Info) Description 09/24/2022 Telephone [facility]ULT [facility] [address] [place] [address] Curt Charles DMD [address] [place] [address] Appointment Social History Tobacco Use Types Packs/Day [...] may then have her dentures made . documented in this encounter Plan of Treatment Upcoming Encounters Date Type Department Care Team (Late st Contact Info) Description 09/15/2024 10:00 AM EDT Office Visit [facility] [address] [place] [address] Kemar Tariq DDS [address] [place] [address] documented as of this encounter Visit Diagnoses Not on filedocumented in this encounter
== END 2024-08-21 12:12 | disposition home or self-care (01) ==
LOC: HO.HKA 11:38
PROVIDERS: PCP Internal Medicine; Visit Provider Internal Medicine Nephrology
DX: N18.31 Chronic kidney disease, stage 3a (principal); I10 Essential (primary) hypertension
CPT/HCPCS: 99214

== ENCOUNTER → 2024-08-21 11:37 | Outpatient (BNVA) | payer OTHER, SELFPAY | PROVIDERS: PCP Internal Medicine; Visit Provider Internal Medicine Nephrology | DX: E11.22 Type 2 diabetes mellitus with diabetic chronic kidney disease (principal); I12.9 Hypertensive chronic kidney disease with stage 1 through stage 4 chronic kidney disease, or unspecified chronic kidney disease; N18.31 Chronic kidney disease, stage 3a; E78.5 Hyperlipidemia, unspecified | CPT/HCPCS: 99212 ==

== ENCOUNTER 2024-09-29 08:31 | Outpatient (AMB) | payer OTHER, SELFPAY ==
--- NOTE | 2024-09-29 07:23 | A.OFFVIS_ITS ---
Vital Signs 09/29/24 08:39 Height 5 ft Weight 207 lb 3.752 oz BMI 40.5 BP 142/76 H Blood Pressure Location Rt brachial Position Sitting Pulse 76 Pulse Source Pulse Oximeter Pulse Oximetry (%) 97 Oxygen Delivery Method Room Air Intake Visit Reasons: T2DM Intake Note: NEW Patient presents today to establish treatment for Type 2 Diabetes Mellitus: Last Diabetic eye exam was on: DUE Last Podiatry exam was on: Patient does not see a Cardiopulmonary Technician Most recent HbA1c: 8.4% 09/29/2024, last A1c 10.7% drawn on 07/16/2024 by the PCP Random Glucose- 376 mg/dL, Today Needle Punch Operator Required: No Accompanied by: Self / Same As Patient Allergies stoma pace Allergy (Unknown, Uncoded 09/29/24 08:47) severe rash/Itch HPI Comments Details: [age] YO female who is seen in consultation for T2DM at the request of PCP. She has a history of poorly controlled diabetes with last A1c 09/29/24 %, 07/16/24 10.7% She was hospitalized several months ago with bilateral DVT and ALFREDO Initially diagnosed with T2DM 2000 after a Was initially started on treatment with: metformin Current regimen: Lantus 40 units b.i.d. Lispro sliding scale before meals (typically eats twice daily. sometimes once with fruit in between) 150-200 2 units 201-250 4 units 251-300 6 unit 301-350 8 units Over 350 10 units Jardiance 10 mg Trulicity 1.5 weekly metformin Does not have sensor/reader first readings 300 most readings in the high 200's and 300 Reports low sugars none recent Family history of T2DM in father and brother Has eyes checked yearly, last eye exam one year ago missed appt this year but will rescheduled, [denies] retinopathy. Has neuropathy, last foot exam: declined today but agrees to have one at her f/u visit in 1-2 weeks Has CKD, ALFREDO 06/2024 in hospital she is followed by Dr. Suleiman most recent EGFR 56 improved since previous 20 she has follow up in November with Nephrology Has HLD, on statin. no recent lipid profile in chart Has recent bilateral DVT on Eliquis . Diet:trying to improve her diet eats large amount of fruit has not had recent diabetes education. [facility] Medical History (Updated 08/02/24 @ 22:39 by Randy Pérez MD) Dyspnea History of herpes genitalis GERD (gastroesophageal reflux disease) Anxiety and depression HTN (hypertension) Elevated cholesterol Left sided abdominal pain Boils of multiple sites COVID-[address] Diverticular disease Diabetes mellitus Depression Morbid obesity Surgical History Hx of colonoscopy Hx of section History of colon resection Family History Mother Stroke Cardiac arrest Father Cardiac arrest Diabetes Brother Diabetes Social History Household Members: Family Household Members Other:: Sister Housing: Apartment Are you a primary care coordinator to a significant other at home: No Do you presently have visiting nurse or other home services: No Alcohol intake: current Alcohol intake frequency: does not drink Patient Tobacco Use Status: Current someday Tobacco user Tobacco use type: Cigarette Years Smoked: 25 Second Hand Smoke Exposure: Yes (boyfriend) Substance Use Type: Marijuana Advance Directives Date on File: 07/23/16 service: No Physical Exam Vital Signs: Last Vital Signs Pulse 76 09/29/24 08:39 BP 142/76 H 09/29/24 08:39 Pulse Ox 97 09/29/24 08:39 Oxygen Delivery Method Room Air 09/29/24 08:39 BMI result Body Mass Index 40.5 Absence of Cushingoid features. Absence of acromegalic features. Neck exam reveals nl size thyroid about 15 gms. No thyroid nodules palpable. No carotid bruits present. Lungs CTA. Heart S1 S2, Reg R/R. No M/R/ G. Skin exam reveals absence of vitiligo or acanthosis nigricans. Abdominal exam reveals Soft NT/ND with NA BS. No organomegaly present. Const Other: Absence of Cushingoid features. Absence of acromegalic features. Neck exam reveals nl size thyroid about 15 gms. No thyroid nodules palpable. Heart S1 S2, Reg R/R. No M/R G. Skin exam reveals absence of vitiligo or acanthosis nigricans. Declined foot exam today. She will have done on her next follow up visit. Neck Other: . Extrem Other: Visual exam of foot performed. No ulcerations or open lesions. No onchomycosis, no callouses.Pulses 2 + distally Sensation intact to monofilament exam. Vibratory sensation sensed is intact with 128 Hz tuning fork Results AMB Hemoglobin A1c AMB Hemoglobin A1c 8.4 % Last Edit by GILBERTO Antony on 09/29/24 09:04 Results Reviewed Results Reviewed: Laboratory Last Values Glucose (Clinic) 376 mg/dL (60-115) H* 09/29/24 08:52 Hgb A1c (Clinic) 8.4 % (4.0-6.0) H 09/29/24 09:02 Assessment & Plan Assessment & Plan (1) Diabetes mellitus: Code(s): E11.9 - Type 2 diabetes mellitus without complications Category: Medical Qualifiers: Diabetes mellitus complication status: with hyperglycemia Diabetes mellitus long term acute care registered nurse insulin use: with long term acute care registered nurse use Diabetes mellitus type: type 2 Qualified Code(s): E11.65 - Type 2 diabetes mellitus with hyperglycemia; Z79.4 - fitness services manager (current) use of insulin Plan: 54-year-old type 2 diabetic with nephropathy followed by Dr. Bearden with a longstanding history of poor control true. Most recent A1C today in the office is 8.4% which is a substantial improvement for her. By history her sugars have been running high 200s to 300 range. She did not bring in her freestyle Lori 2 m with her today. She does have backup glucometer test strips and lancets. Because her A1c is not at her target of 7% I would recommend that she switch over to a freestyle Lori 3+ in addition she is on MDI which will better allow us to monitor his sugars and detect any low as we tighten her diabetic control. Order for the freestyle Lori 3+ sensors and reader was placed. She will see the ict educator in approximately 2 weeks for training. She was counseled to move her appointment back if she has not yet received her supplies. She will see Annika Pérez RD. for today she was given a copy of the plate method and I reviewed that 3 fruit servings per day were appropriate. We reviewed serving size of her favorite fruits. We will switch her over from twice daily Lantus to once daily Tresiba to smooth out her numbers in the lowest to better adjust her sliding scale. New dosing Tresiba 80 units once daily Humalog take 15 minutes before the meal not after 80-150 4 units 151-200 6 units 201-250 8 units 251-300 10 units Over 300 12 units She is having some diarrhea on regular metformin and does have an ostomy. She has been taking 500 mg twice daily of regular strength and we will switch this over to extended release. She will continue to follow up her with her financial report service sales agent on a regular basis and we will reschedule her eye exam which she missed. The patient had an opportunity to ask questions regarding treatment plan. The patient expressed understanding and agreement with the above treatment plan. The patient is aware they should contact our office by phone for worsening glucose readings or for any low blood sugars which may warrant a change in diabetes medication. Compliance is encouraged with medications and any followup testing/consults which may have been ordered. Orders: Orders AMB Hemoglobin A1c Today E11.65 - Type 2 diabetes mellitus with hyperglycemia, Z79.4 - snf (current) use of insulin Medications: New FreeStyle Lori 3 Plus Sensor (blood-glucose sensor) As directed eery 15 days 2 ea 11RF NS E11.65 - Type 2 diabetes mellitus with hyperglycemia, Z79.4 - fitness services manager (current) use of insulin FreeStyle Lori 3 [place] (blood-glucose,labeling associate,cont) As directed 1 ea 0RF NS E11.65 - Type 2 diabetes mellitus with hyperglycemia, Z79.4 - fitness services manager (current) use of insulin metformin ER 500 mg PO BID 60 tabs 6RF 30 days insulin lispro 80-150 4 units 151-200 6 units 201-250 8 units 251-300 10 units over 300 12 units subcutaneously use as directed; 9 mL 6RF 30 days MDD 36 insulin degludec (Tresiba FlexTouch U-200 insulin) 80 units (0.4 mL) subcut DAILY 12 mL 6RF 30 days Patient Instructions: The patient was counseled to achieve a target A1C of 7% (154 avg). Fasting blood sugars should be 90-130 in the morning and less than 180 two hours after meals. Reviewed the relationship between poor diabetic control and the development of complications. Coding Level of Care Code New Pt Level 4 (22237) Complex EM visit Add On G2211 Diagnoses Diabetes mellitus E11.65; Z79.4 Diabetes mellitus complication status: with hyperglycemia Diabetes mellitus group home insulin use: with long term acute care registered nurse use Diabetes mellitus type: type 2 Time Spent (min) 35 Comment The patient was counseled to achieve a target A1C of 7% (154 avg). Fasting blood sugars sh
[2024-09-29 08:39] VITALS: BP 142/76; PULSE 76; O2SAT 97; BMI 40.5
--- OUTSIDE RECORDS SUMMARY | 2024-09-29 08:47 | XMS_ITS | Encounter Summary ---
Author Organization [facility], Address [address] [place] [address] Phone Care Team Providers Care Computer Forwarding System Markup Clerk Name Role Phone Ben Gould Primary Care Provider Encounter Details Date Type Department Care Team (Late st Contact Info) Description 01/01/2024 Documentation Only [facility], [address] [place] [address] [place], [place] [address] [place] [address] Social History Tobacco Use Types [...] on filedocumented in this encounter Care Teams Computer Forwarding System Markup Clerk Relationship Specialty Start Date End Date Ben Gould [address] [place] [id number] PCP - General 01/01/24 documented as of this encounter
--- OUTSIDE RECORDS SUMMARY | 2024-09-29 08:47 | XMS_ITS | Clinical Summary ---
Author Organization [employer] Address [address] [place] [address] Care Team Providers Care Digital Media Buyer Name Role Phone Unavailable Primary Care Provider Unavailabl e Allergies Active Allergy Reactions Criticality Noted Date Comments Gabapentin 12/11/2023 Nicotine Rash Low 12/11/2023 see 03-13-11 note: rash occurred when used patch years ago Medications varenicline (Chantix) 1 MG tablet 08/11/2024 Active valACYclovir (Valtrex) 500 MG tablet 06/25/2024 Active traZODone (Desyrel) 100 MG tablet 08/17/2024 Active oxyCODONE (Roxicodone) 5 MG immediate release tablet 07/16/2024 Acti ve omeprazole (PriLOSEC) [address] capsule 02/13/2024 Activ e metFORMIN (Glucophage) 500 MG tablet 07/16/2024 Activ e melatonin 5 MG tablet 08/19/2024 Active Comfort Touch Plus Lancets 30G [facility] 08/20/2024 Active lisinopril 5 MG tablet Take 1 tablet by mouth at bed time. Active True Comfort Pen [place] 31G X 5 MM [facility] 08/29/2024 Active insulin lispro (HumaLOG) 100 UNIT/ML injection 08/24/2024 Active Lantus SoloStar 100 UNIT/ML pen Inject under the skin. Active Eliquis 5 MG tablet 08/28/2024 Active ARIPiprazole (Abilify) 15 MG tablet 08/19/2024 Active amoxicillin (Amoxil) 500 MG capsule Take 1 capsule by mouth every 8 (eight) hours. 03/13/2022 Active amLODIPine (Norvasc) 5 MG tablet 07/09/2024 Active FT Pain Reliever Ex Str Adult 500 MG tablet 08/19/2024 Active metFORMIN (Glucophage) 250 MG split tablet Take 1 tablet by mouth every 12 (twelve) hours. Active Continuous Glucose Adolescent Psychiatrist (FreeStyle Lori 2 [place]) device 08/19/2024 Active Continuous Glucose Sensor (FreeStyle Lori 2 Sensor) mis 08/19/2024 Active atorvastatin (Lipitor) 80 MG tablet 07/16/2024 Active atorvastatin (Lipitor) 20 MG tablet Take 1 tablet by mouth at bed time. Active Jardiance 10 MG 08/19/2024 Act jami FREESTYLE LITE test strip 08/20/2024 Active ibuprofen 800 MG tablet Take 1 tablet by mouth every 8 (eight) hours. 03/13/2022 Active FLUoxetine (PROzac) 40 MG capsule 08/20/2024 Active dulaglutide (Trulicity) 1.5 MG/0.5ML solution pen-injector 01/06/2024 Active Trulicity 1.5 MG/0.5ML solution auto-injector 08/17/2024 Activ e omeprazole (PriLOSEC) [address] capsule Take 2 capsules by mouth at bed time. 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 Dental caries 03/21/2023 Periodontal disease 03/21/2023 Encounters Date Type Department Care Team Description 09/15/2024 10:00 AM EDT Office Visit [facility]ULT [facility] [address] [place] [address] Kemar Tariq DDS from Last 3 Months Social History Tobacco Use Types Packs/Day Years Used Date Smoking Tobacco: Former Cigarettes Passive Smoke Exposure: Past Smokeless Tobacco: Current Tobacco Cessation:Ready to Q uit: Not Asked; Counseling Given: Not Answered Alcohol Use Standard Drinks/Week Comments Not Currently 0 (1 standard drink = 0.6 oz [...] Sign Reading Time Taken Comments Blood Pressure 132/82 09/15/2024 9:58 AM EDT Pulse 60 09/15/2024 9:58 AM EDT Temperature - - Respiratory Rate - - Oxygen Saturation - - Inhaled Oxygen Concentration - - Weight - - Height - - Body Mass Index - - Plan of Treatment Upcoming Encounters Date Type Department Care Team (Tray st Contact Info) Description 01/15/2025 9:00 AM EDT Office Visit [facility]ULT D[facility] [address] [place] [address] Kemar Tariq, TERIS [address] [place], [place] [id number] Health Maintenance Due Date Last Done Comments CT Colonography 1971 Colonoscopy 1971 Colorectal Cancer Screening 1971 Dental Prophylaxis 1971 Dental X-Ray: Bitewings 1971 Depression Screening 1971 FIT DNA/Cologuard 1971 FIT 1971 FOBT 1971 HIV Screening 1971 Lipid Panel 1971 SDOH Screening 1971 Sigmoidoscopy 1971 Alcohol/Substance Use Screening 1983 Hepatitis C Screening 09/15/1989 DTaP/Tdap/Td Vaccines (1 - Tdap) 09/15/1990 Hepatitis B Vaccines (1 of 3 - 19+ 3-dose series) 09/15/1990 Pap Smear 09/15/1992 Cervical Cancer Screening 09/15/2001 HPV/Cotest 09/15/2001 Mammogram 2011 Pneumococcal Vaccine: 50+ Years (1 of 1 - PCV) 09/15/2021 Zoster Vaccines (1 of 2) 09/15/2021 COVID-19 Vaccine ( - 2023-2 5 season) 2024 Influenza Vaccine (#1) 2024 Dental Oral Exam 03/18/2025 09/15/2024, 03/02/2022 Tobacco Screening 09/15/2025 09/15/2024 Dental X-Ray: Full Mouth 03/22/2026 023, 03/02/2022 [...] Procedure Name Priority Date/Time Associated Diagnosis Comments COMPREHENSIVE PERIODONTAL EVALUATION - NEW OR ESTABLISHED PATIENT Routine 09/15/2024 10:00 AM EDT CASE PRESENTATION, DETAILED AND EXTENSIVE TREATMENT PLANNING Routine 09/15/2024 10:00 AM EDT PERIODIC ORAL EVALUATION - ESTABLISHED PATIENT Routine 09/15/2024 10:00 AM EDT PANORAMIC RADIOGRAPHIC IMAGE Routine 03/21/2023 1:00 PM EDT from Last 3 Months or Most Recently Relevant to Health Maintenance Insurance [facility] MEDICAID STAND ADULT
--- OUTSIDE RECORDS SUMMARY | 2024-09-29 08:47 | XMS_ITS | Encounter Summary ---
Author Organization [employer] Address [address] [place] [address] Care Team Providers Care Provider Network Manager Name Role Phone Unavailable Primary Care Provider Unavailabl e Reason for Visit * Reason Onset Date Comments Appointment 09/24/2022 Encounter Details Date Type Department Care Team (Late st Contact Info) Description 09/24/2022 Telephone [facility]ULT [facility] [address] [place] [address] Curt Charles DMD [address] [place] [address] Appointment Social History Tobacco Use Types Packs/Day [...] Care Team (Late st Contact Info) Description 01/15/2025 9:00 AM EDT Office Visit [facility]ULT [facility] [address] [place] [address] Kemar Tariq DDS [address] [place] [address] documented as of this encounter Visit Diagnoses Not on filedocumented in this encounter
--- OUTSIDE RECORDS SUMMARY | 2024-09-29 08:47 | XMS_ITS | Clinical Summary ---
Author Organization [facility], Address [address] [place] [address] [place] [address] Phone Care Team Providers Care Circulator Name Role Phone Ben Gould Primary Care Provider [phone] Social History Tobacco Use Types Packs/Day Years [...] (1 of 3 - 19+ 3-dose series) 09/15 Colorectal Cancer Screening: Annual FOBT 09/15/2020 Colorectal Cancer Screening: Colonoscopy 09/15/2020 Colorectal Cancer Screening: Sigmoidoscopy 09/15/2020 Pneumococcal Vaccine: 50+ Years (2 of 2 - PCV) 022 01/18/2009 Diabetes: Hemoglobin A1C 06/30/2024 Diabetes: Ophthalmology Exam 06/30/2024 Diabetes: Pedal Pulse Checked 06/30/2024 Diabetes: Sensory Foot Exam 06/30/2024 Diabetes: Visual Foot Exam 06/30/2024 Influenza Vaccine (Season Ended) 2025 Pneumococcal Vaccine: Peds ( 0 to 5 Years) and At-Risk Patients (6 to 49 Years) Discontinued 01/18/2009 Insurance [facility] Medicaid Care Teams Circulator Relationship Specialty Start Date End Date Ben Gould [address] [place] [id number] PCP - General 01/01/24
[2024-09-29 08:57] LABS: Glucose, Whole Blood 376 mg/dL (60-115)
== END 2024-09-29 09:25 | disposition home or self-care (01) ==
LOC: HO.ENCR 08:32
PROVIDERS: PCP Internal Medicine; Visit Provider Nurse Practitioner Adult Health
DX: E11.65 Type 2 diabetes mellitus with hyperglycemia (principal); Z79.4 Long term (current) use of insulin
CPT/HCPCS: 99204; G2211

== ENCOUNTER → 2024-09-29 08:31 | Outpatient (BNVA) | payer OTHER, SELFPAY | PROVIDERS: PCP Internal Medicine; Visit Provider Nurse Practitioner Adult Health | DX: E11.65 Type 2 diabetes mellitus with hyperglycemia (principal); Z79.4 Long term (current) use of insulin; Z79.84 Long term (current) use of oral hypoglycemic drugs; Z79.85 Long-term (current) use of injectable non-insulin antidiabetic drugs | CPT/HCPCS: 82947; 83036; 99202 ==